=== PATIENT | female | born 1990 | race Caucasian/White ===

== ENCOUNTER 2019-04-30 09:20 | Outpatient (CLI) | payer OTHER, SELFPAY ==
[2019-04-30 09:34] LABS: Basophils Absolute Auto 0.02 K/mm3 (0.00-0.10); Basophils Percent Auto 0.3 % (0.0-1.0); Eosinophils Absolute Auto 0.05 K/mm3 (0.02-0.50); Eosinophils Percent Auto 0.8 % (1.0-6.0); Hematocrit 47.7 % (35.0-49.0); Hemoglobin 16.1 g/dL (12.0-15.0); Immature Granulocyte Absolute 0.01 K/mm3 (0.00-0.00); Immature Granulocyte Percent A 0.2 % (0.0-0.0); Lymphocytes Absolute Auto 2.09 K/mm3 (1.10-4.50); Lymphocytes Percent Auto 35.5 % (18.0-42.0); Mean Corpuscular HGB Conc 33.8 g/dL (32.0-36.0); Mean Corpuscular Hemoglobin 29.7 pg (27.0-31.0); Mean Platelet Volume 9.2 fl (9.2-11.8); Monocytes Absolute Auto 0.31 K/mm3 (0.10-0.90); Monocytes Percent Auto 5.3 % (2.0-11.0); Neutrophils Absolute Auto 3.4 K/mm3 (1.7-7.2); Neutrophils Percent Auto 57.9 % (50.0-70.0); Platelet Count Result 254 K/mm3 (150-420); Red Blood Count 5.42 M/mm3 (4.20-5.40); Red Cell Distribution Width 12.2 % (11.6-14.4); White Blood Count 5.9 K/mm3 (4.8-10.8)
[2019-04-30 11:17] LABS: Alanine Aminotransferase 36 U/L (14-59); Albumin Level 4.6 g/dL (3.4-5.0); Alkaline Phosphatase 58 U/L (46-116); Anion Gap 16.3 mmol/L (7-16); Aspartate Amino Transferase 21 U/L (15-37); Bilirubin,Total 0.7 mg/dL (0.00-1.00); Blood Urea Nitrogen 20 mg/dL (7-18); Calcium 9.8 mg/dL (8.5-10.1); Carbon Dioxide 25 mmol/L (21-32); Chloride 106 mmol/L (98-108); Estimated Glomerular Filt Rate 57; Folic Acid 8.7 ng/mL (8.6->20); Glucose 85 mg/dL (70-99); Osmolality Calculated 297 mOsm/kg (285-295); Potassium 4.3 mmol/L (3.5-5.1); Sodium 143 mmol/L (136-145); Thyroid Stimulating Hormone 2.18 uIU/mL (0.36-3.74); Total Protein 7.8 g/dL (6.4-8.2); Vitamin B12 530 pg/mL (193-986)
== END 2019-04-30 09:21 | disposition home or self-care (01) ==
LOC: CHSLAB 09:24
PROVIDERS: PCP Psychiatry & Neurology Neurology; Visit Provider Psychiatry & Neurology Neurology
DX: R20.2 Paresthesia of skin (principal)
CPT/HCPCS: 36415; 80053; 82607; 82746; 84443; 85025; 86038; 86334

== ENCOUNTER 2019-08-31 18:27 | Emergency (ER) | payer OTHER, SELFPAY ==
--- NOTE | ~2019-08-31 | CT_ITS ---
EXAMINATION: CT BRAIN W/O DATE: 08/31/2019 19:18 INDICATION: Head and neck pain. TECHNIQUE: Computed tomography (CT) of the head was performed without intravenous contrast. The dose- length product was 681.00 mGy-cm. The mA was adjusted according to patient size. Iterative reconstruc tion technique was employed. COMPARISON: 08/01/2018 FINDINGS: Normal brain parenchymal volume for age. Normal obregon-white differentiation. No acute intrac ranial hemorrhage, infarction, mass or mass effect. No ventriculomegaly or midline shift. Midline sagittal images demonstrate a normal corpus callosum, c raniovertebral junction and sella turcica. Basilar cisterns are patent. Stable position to right fron harpreet ventriculostomy catheter. Paranasal sinuses and mastoids are pneumatized. No depressed skull fractures. IMPRESSION: 1. No acute intracranial abnormality. Reviewed, dictated and finalized at location A.
--- NOTE | ~2019-08-31 | CT_ITS ---
EXAMINATION: CT cervical spine wo con DATE: 08/31/2019 19:18 INDICATION: Severe neck pain TECHNIQUE: Computed tomography (CT) of the cervical spine was performed without intravenous contrast. The dose-length product was 411 mGy-cm. Automated exposure control and iterative reconstruction technique were employed. COMPARISON: None FINDINGS: Normal cervical alignment. Vertebral body and disc heights are preserved. Craniovertebral j unction is normal. Ventriculostomy catheter noted. Odontoid process within normal limits. No evidence for perched facet. Lung apices are normal. Thyroid gland is normal. No cervical lymphadenopathy. IMPRESSION: 1. No acute abnormality of the cervical spine. Reviewed, dictated and finalized at location A.
[2019-08-31 18:45] VITALS: BP 141/98; PULSE 84; RESP 17; TEMP 37.3; O2SAT 96
--- NOTE | 2019-08-31 18:45 | ED.NECK ---
HPI - Neck Pain/Injury General Chief Complaint: Headache Stated Complaint: neck pain Time Seen by Provider: 08/31/19 18:45 Source: patient Mode of arrival: ambulatory Limitations: no limitations History of Present Illness HPI Narrative: 29-year-old woman with a history of idiopathic intracranial hypertension status post CARGO SERVICES COORDINATOR shunt comes in today complaining of severe occipital and upper neck pain. Patient states this started a week ago and has gradually gotten worse. She has been taking tramadol, an anti-inflammatory and a muscle relaxer to no avail. She has had a few episodes of vomiting. She denies history of injury, numbness, tingling, weakness, changes in her vision, fever, cough or cold symptoms or rash. Her CARGO SERVICES COORDINATOR shunt was placed by Arnoldo Robertson MD, neurosurgery at [facility]. She had a CT scan of her brain in March of this year which she states was normal. MD complaint: neck pain Radiation: occiput Severity: severe Quality: dull Duration: progressively worsening Relieving factors: none Exacerbating factors: movement of neck Context: unknown Associated symptoms: headache Treatments prior to arrival: prescription analgesic and other (diclofenac) Related Data Home Medications Medication Instructions Recorded Confirmed cyclobenzaprine 10 mg PO TID 08/31/19 08/31/19 diclofenac sodium 50 mg PO BID 08/31/19 08/31/19 tramadol 50 mg PO QID 08/31/19 08/31/19 Allergies Allergy/AdvReac Type Severity Reaction Status Date / Time shellfish derived Allergy Severe Unknown Verified 08/25/19 15:57 iodine Allergy Intermediate Unknown Verified 08/25/19 15:57 morphine Allergy Intermediate Unknown Verified 08/25/19 15:57 Review of Systems Constitutional: Constitutional: Denies chills, Denies fever(s) and Denies weakness Eyes: Eyes: Denies change in vision and Denies photophobia ENT: Denies dysphagia, Denies nasal congestion and Denies sore throat Cardiovascular: Cardiovascular: Denies chest pain and Denies radiating jaw, neck or arm pain Respiratory: Respiratory: Denies cough, Denies dyspnea and Denies wheezing Gastrointestinal: Gastrointestinal: Denies abdominal pain, Denies diarrhea and Reports vomiting Integumentary/Breasts: Skin/Breast: Denies pruritus, Denies erythema and Denies rash Neurologic: Denies vertigo, Denies dizziness and Denies syncope Hematologic/Lymphatic: Hematologic/Lymphatic: Denies easy bleeding and Denies easy bruising Allergic/Immunologic: Allergic/Immunologic: Denies lip swelling and Denies wheezing [facility] Past Medical History Medical History (Updated 08/31/19 @ 22:09 by Supa Worrell MD) AMARA (generalized anxiety disorder) IBS (irritable bowel syndrome) IIH (idiopathic intracranial hypertension) PTSD (post-traumatic stress disorder) Tobacco dependence Surgical History Surgical History Hx of hysterectomy (~11/28/10) S/P CARGO SERVICES COORDINATOR shunt Social History Social History Smoking packs per day: 0.5 Smoking cigarettes per day: 10.0 Smoking status: Current every day smoker Tobacco type: cigarettes Alcohol intake: never Substance use: never Substance use type: does not use Exam Const: General: healthy appearing and alert Orientation/consciousness: patient oriented x3 Limitations: no limitations Other: Mod acute distress HENMT: Ears: external ears normal, TM's normal bilaterally and EAC's normal Face and sinus: normal facial exam Mouth: Yes moist mucous membranes Throat: posterior oropharynx normal Eyes: Conjunctivae: conjunctivae normal Pupils: Equal, round and reactive pupils present EOM: EOMs intact bilaterally Neck: Neck: no lymphadenopathy Other: Tender to palpation at base of occuput. No abnormal contour or rash. Resp: Effort & Inspection: normal respiratory effort, not labored and no retractions Auscultation: clear to auscultation bilaterally, no rales, no
[2019-08-31] MEDS: ONDANSETRON INJ 4 MG/2 ML VIAL IV PUSH (19:13)
[2019-08-31] MEDS: HYDROmorphone HCL 2 MG/ML VIAL 0.5 MG IV PUSH ×3 (19:15→21:22)
--- NOTE | 2019-08-31 19:52 | PC.NURSE ---
DR TA FROM [facility] CALLED FOR CONSULT
[2019-08-31] MEDS: KETOROLAC 30 MG/ML VIAL (*BKC) IV PUSH (20:07)
[2019-08-31] MEDS: SODIUM CHLORIDE 0.9% IV 1,000 ML 999 ML IV CONT (20:08)
[2019-08-31 20:23] LABS: Basophils Absolute Auto 0.04 K/mm3 (0.00-0.10); Basophils Percent Auto 0.4 % (0.0-1.0); Eosinophils Absolute Auto 0.12 K/mm3 (0.02-0.50); Eosinophils Percent Auto 1.3 % (1.0-6.0); Hematocrit 46.4 % (35.0-49.0); Hemoglobin 15.7 g/dL (12.0-15.0); Immature Granulocyte Absolute 0.01 K/mm3 (0.00-0.00); Immature Granulocyte Percent A 0.1 % (0.0-0.0); Lymphocytes Absolute Auto 3.99 K/mm3 (1.10-4.50); Mean Corpuscular HGB Conc 33.8 g/dL (32.0-36.0); Mean Corpuscular Hemoglobin 29.5 pg (27.0-31.0); Mean Corpuscular Volume 87.2 fL (78.0-102.0); Mean Platelet Volume 9.4 fl (9.2-11.8); Monocytes Absolute Auto 0.45 K/mm3 (0.10-0.90); Neutrophils Absolute Auto 4.5 K/mm3 (1.7-7.2); Neutrophils Percent Auto 49.2 % (50.0-70.0); Platelet Count Result 273 K/mm3 (150-420); Red Blood Count 5.32 M/mm3 (4.20-5.40); Red Cell Distribution Width 11.8 % (11.6-14.4); White Blood Count 9.1 K/mm3 (4.8-10.8)
[2019-08-31 20:37] LABS: Partial Thromboplastin Time 27.8 SEC (22.3-31.6); Prothrombin Time 10.3 Seconds (9.64-11.0)
[2019-08-31 20:39] LABS: Alanine Aminotransferase 29 U/L (14-59); Alkaline Phosphatase 58 U/L (46-116); Anion Gap 14.9 mmol/L (7-16); Aspartate Amino Transferase 16 U/L (15-37); Bilirubin,Total 0.3 mg/dL (0.00-1.00); Blood Urea Nitrogen 18 mg/dL (7-18); CRP 0.6 mg/dL (0.0-0.9); Calcium 9.3 mg/dL (8.5-10.1); Carbon Dioxide 23 mmol/L (21-32); Chloride 105 mmol/L (98-108); Estimated Glomerular Filt Rate 53; Glucose 106 mg/dL (70-99); Osmolality Calculated 289 mOsm/kg (285-295); Potassium 3.9 mmol/L (3.5-5.1); Sodium 139 mmol/L (136-145); Total Protein 7.4 g/dL (6.4-8.2)
[2019-08-31 20:44] LABS: Lactic Acid Reflex 1.2 mmol/L (0.4-2.0)
--- NOTE | 2019-08-31 21:06 | PC.NURSE ---
DR CYR CALLED FOR POSSIBLE TRANSFER TO [facility]
--- NOTE | 2019-08-31 21:10 | PC.NURSE ---
NS INFUSED AT THIS TIME
[2019-08-31 22:14] VITALS: BP 148/94; PULSE 55; RESP 17; O2SAT 97
== END 2019-08-31 22:38 | disposition short-term general hospital (02) ==
PROVIDERS: Emergency Provider Emergency Medicine; PCP Nurse Practitioner Family
DX: M54.2 Cervicalgia (principal); R51 Headache
CPT/HCPCS: 36415; 70450; 72125; 80053; 83605; 85025; 85610; 85730; 86140; 87040; 96361; 96374; 96375; 96376; 99285; J1170; J1885; J2405; J7030

== ENCOUNTER 2019-08-31 23:19 | Inpatient (IN) | payer OTHER, SELFPAY ==
--- NOTE | 2019-08-31 23:23 | ADMGEN ---
This patient, Yovana Simental, was admitted to Medical Room 252-01. Patient/family oriented to hospital policies and general routines including ID bracelet, bed and alarms, visiting hours, pain management, procedures, bathroom and other care routines, personal items, smoking policy, room service/diet, and visiting hours. Valuables list has been completed. Information on how to activate the Rapid Response Team has been discussed. Patient/Family are encouraged to report perceived risks to care and to ask questions if they do not understand what they are told or what they should do.
[2019-08-31 23:33] VITALS: BP 146/95; PULSE 55; RESP 20; TEMP 36.4; O2SAT 98; BMI 25.8
[2019-09-01] MEDS: CYCLOBENZAPRINE HCL 10 MG TABLET PO ×4 (00:44→17:28)
[2019-09-01] MEDS: traMADol HCL 50 MG TABLET 100 MG PO (03:45)
[2019-09-01 06:00] VITALS: BP 135/84; PULSE 62; RESP 20; TEMP 36.3; O2SAT 100
[2019-09-01 09:41] LABS: Prothrombin Time 13.1 Seconds (11.1-14.7)
[2019-09-01 09:42] LABS: Partial Thromboplastin Time 28.1 SECONDS (22.3-36.8)
--- NOTE | 2019-09-01 09:59 | PM.IMHP ---
H&P: HPI History of Present Illness Chief complaint: Intractable headache Narrative: Yovana Simental is a 29 year old female with a history of pseudotumor cerebri, idiopathic intracranial hypertension, s/p shunt placement at [facility] [address] Arnoldo Robertson Neurosurgeon, who presented as a transfer to our facility from [facility] for gradually worsening neck pain. She developed left occipital neck pain about 1.5 weeks ago and saw her nurse practitioner 1 week ago and was prescribed Flexeril and Tramadol without any improvement. The pain began getting worse steming from the base of her skull, radiating to the back of her head and pain behind her left eye. She has worsening neck pain with any movement, range of motion of her neck, with palpation. She also noticed weakness to her left arm as well as sharp shooting neck pain with range of motion of her left arm. She reports no improvement with dilaudid, valium or any medications she has had for pain. She denies any similar symptoms in the past. The pressure behind her left eye is similar to her pseudotumor cerebri pain. Patient states this is not like her normal migraine. She does have associated nausea and intermittent vomiting secondary to her severe pain. She denies any fevers, chills, blurred vision, double vision, photophobia, abdominal pain, lightheadedness, dizziness, syncope, chest pain, shortness of breath, cough, rhinorrhea, congestion, diarrhea, constipation, abdominal pain, rashes, sick contacts. The patient said she has been staying at home with her kids unknown has been sick. She has not been camping recently. She has not been doing any strenuous activity or denies any trauma. Her initial labs at [facility] showed temperature of 99.2?, blood pressure 141/98, heart rate 84, respiratory rate 17, oxygen saturation 96% on room air. Initial labs at [place] showed normal CBC with differential, normal coag panel, normal CMP other than creatinine of 1.1, glucose 106. CT head showed no acute intracranial abnormality. No ventriculomegaly or midline shift. Stable position to right frontal ventriculostomy catheter. Cervical spine CT showed no acute abnormality. Blood cultures were taken. The patient was transferred to [facility] for a neurologist consult and for a MRI and lumbar puncture. Code status: Full code [id number]: Patient's significant other, Abraham Woods Primary care provider: Nurse Practitioner Marita ghosh [place] Review of Systems Review of Systems: All systems reviewed & are unremarkable except as noted in HPI and below PMFSH Past Medical History Medical History AMARA (generalized anxiety disorder) IBS (irritable bowel syndrome) IIH (idiopathic intracranial hypertension) Pseudotumor cerebri PTSD (post-traumatic stress disorder) Tobacco dependence Surgical History Surgical History Hx of hysterectomy (~11/28/10) S/P laparoscopic surgery For endometriosis multiple times S/P EARLY EDUCATION TEACHER shunt 2017 [facility] [address]. 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
[2019-09-01 14:00] VITALS: BP 118/80; PULSE 51; RESP 12; TEMP 36.1; O2SAT 99
--- NOTE | 2019-09-01 14:58 | CONS_ITS ---
DATE OF CONSULTATION: 08/31/2019 HISTORY OF PRESENT ILLNESS: A 29-year-old right-handed female has been admitted to [facility] through the emergency room for the complaint of intractable headache. In addition to the ongoing history of: 1. Generalized anxiety disorder. 2. Irritable bowel syndrome. 3. Idiopathic intracranial hypertension. 4. Posttraumatic stress disorder. 5. Tobacco dependence. In addition to the history of a smoking 1 pack per day with the 15-year smoking history, currently everyday smoker. No alcohol drinking. MEDICATION: At the time of admission to the hospital she was takin. Cyclobenzaprine 10 mg 3 times a day. 2. Tramadol 50 mg q.i.d. p.r.n. ALLERGIES: SHE IS REPORTEDLY ALLERGIC TO SHELLFISH, IODINE, AND MORPHINE. PHYSICAL EXAMINATION: VITAL SIGNS: Evaluation up until now documented her to be afebrile with temperature of 97.5, pulse 55, respirations 20, blood pressure 146/95 with pulse ox 98%. HEENT: Head normocephalic. No cranial bruit. Ear, nose, throat examination normal. NECK: Supple, but complains of left-sided neck discomfort. HEART: Regular with no murmur. LUNGS: Clear. ABDOMEN: Soft. NEUROLOGICAL: She is awake, alert, in no obvious pain. Pupils round, regular. Vicente of vision full. Extraocular movements full. Face symmetrical. Tongue midline. Motor examination revealed her to have fairly nonfocal motor exam with strength normal. Reflexes sluggish, but symmetrical and plantars downgoing. Up until now, she has had the cervical spine CT scan, which revealed no abnormalities and CT scan of the head, no ventriculomegaly or midline shift. Normal corpus callosum. CV junction is normal. Basal cisterns are patent and position to the right frontal ventriculostomy catheter is stable. She is afebrile. Considering that she will need spinal tap with a continual neck pain, I prefer that she goes back to the [facility] where the shunt has been placed in, in case if they have to do anything for seizure further. In the meantime, supportive treatment can continue as such. NILDA GOYAL M.D. CRUSHER PLANT OPERATOR CRUSHER PLANT OPERATOR D I MT: Ruby
--- NOTE | 2019-09-01 15:32 | PCCCNOTE ---
On 09/01/19, the student, [Eloina Mendez], provided care and completed [facility] on this patient. I have reviewed the student's documentation and agree with the findings.
--- NOTE | 2019-09-01 16:24 | PM.TDS ---
Transfer Discharge Sum: Prov Provider Date of admission: 08/31/19 23:19 Primary care physician: Marita Pappas NP Admitting clinician: Tina Leigh DO Consults: 09/01/19 Consult to Physician Routine Comment: NOTIFIED BY LOAN CURRAN Consulting Provider: Sam De Jesus incident response lead/MD group to consult: Dr. De Jesus-was notified by outside facility Reason for consultation: Intractable headache, TITLE CURATIVE SPECIALIST shunt Has provider been notified: Yes DS: Admitting Diagnosis Admitting Diagnosis Admitting Diagnosis: Cervicalgia DS: Discharge Diagnosis Discharge Diagnosis (1) Neck pain: Code(s): M54.2 - Cervicalgia Status: Acute Assessment and Plan: (2) Uncontrolled pain: Code(s): R52 - Pain, unspecified Status: Acute Assessment and Plan: (3) Pseudotumor cerebri: Code(s): G93.2 - Benign intracranial hypertension Status: Acute Assessment and Plan: Transfer Discharge Sum: Med Medications Active and Home Medications: Home Medications cyclobenzaprine 10 mg PO TID 08/31/19 [History Confirmed 08/31/19] tramadol 50 mg PO QID PRN 08/31/19 [History Confirmed 08/31/19] Active Medications Acetaminophen (Tylenol Tablet) 650 mg PO Q4H PRN PRN Reason: Mild Pain (1-3) or Fever Cyclobenzaprine HCl (Flexeril) 10 mg PO TID PADMAJA Last Admin: 09/01/19 13:55 Dose: 10 mg Documented by: Diazepam (Valium Inj) 5 mg IV PUSH Q6HR PRN PRN Reason: MUSCLE SPASM Stop: 09/06/19 02:19 Hydromorphone HCl (Dilaudid Inj) 1 mg IV PUSH Q3H PRN PRN Reason: Pain Rated 7-10 Last Admin: 09/01/19 13:52 Dose: 1 mg Documented by: Ondansetron HCl (Zofran Inj) 4 mg IV PUSH Q6H PRN PRN Reason: Nausea And Vomiting Tramadol HCl (Ultram) 100 mg PO Q4H PRN PRN Reason: PAIN 4-6 Stop: 09/06/19 02:17 Transfer Discharge Sum: Hosp Hospital Course Hospital course: Yovana Simental is a 29 year old female with a history of pseudotumor cerebri, idiopathic intracranial hypertension, s/p shunt placement at [facility] [address] Arnoldo Robertson Neurosurgeon, who presented as a transfer to our facility from [facility] for gradually worsening neck pain. Her initial labs at [facility] showed temperature of 99.2?, blood pressure 141/98, heart rate 84, respiratory rate 17, oxygen saturation 96% on room air. Initial labs at [place] showed normal CBC with differential, normal coag panel, normal CMP other than creatinine of 1.1, glucose 106. CT head showed no acute intracranial abnormality. No ventriculomegaly or midline shift. Stable position to right frontal ventriculostomy catheter. Cervical spine CT showed no acute abnormality. Blood cultures were taken. The patient was transferred to [facility] for a neurologist consult and for a MRI and lumbar puncture. Discussed patient's case with our neurologist Dr. Joe who evaluated the patient at bedside and feels that due to her significant history, severe uncontrolled neck pain and symptoms that she would be best suited to be transferred to [facility]. I called [facility] and talked to Dr. Schofield neurosurgeon who accepts the patient in transfer to their facility for further workup and evaluation to ensure that her shunt does not have any problems associated with her symptoms. Time Spent with Patient Time attestation: Total time spent providing and/or coordinating transfer services: Total time spent: Greater than 30 minutes Exam Narrative: Exam Narrative: General: 29-year-old woman laying flat in bed with her head elevated at 40?. Appears comfortable, but she is not moving her neck secondary to pain. In no acute distress. Skin: No rashes noted. No jaundice or cyanosis. Good skin turgor. Neck: Decreased range of motion of neck secondary to pain. Tenderness to palpation of left p
[2019-09-01 18:41] VITALS: BP 134/96; PULSE 62; RESP 20; TEMP 36.3; O2SAT 100
[2019-09-01 22:00] VITALS: BP 142/97; PULSE 60; RESP 18; TEMP 36.6; O2SAT 100
[2019-09-02] MEDS: ONDANSETRON INJ 4 MG/2 ML VIAL IV PUSH ×3 (05:26→20:00)
[2019-09-02 06:00] VITALS: BP 125/82; PULSE 62; RESP 18; TEMP 36.6; O2SAT 98
[2019-09-02 06:04] LABS: Basophils Absolute Auto 0.1 K/mm3 (0.0-0.1); Basophils Percent Auto 0.7 % (0.2-1.2); Eosinophils Absolute Auto 0.1 K/mm3 (0-0.3); Eosinophils Percent Auto 1.2 % (0-4.4); Hematocrit 46.9 % (37.0-47.0); Hemoglobin 15.7 g/dL (12.0-15.0); Immature Granulocyte Absolute 0.01 K/mm3 (0.00-0.031); Immature Granulocyte Percent A 0.1 % (0-0.5); Lymphocytes Absolute Auto 3.36 K/mm3 (0.9-3.2); Lymphocytes Percent Auto 46.2 % (18.3-44.2); Mean Corpuscular HGB Conc 33.5 g/dl (32-36); Mean Corpuscular Hemoglobin 29.5 pg (26-34); Mean Platelet Volume 9.3 fl (7.4-10.4); Monocytes Absolute Auto 0.5 K/mm3 (0.1-0.6); Monocytes Percent Auto 6.5 % (2.6-8.5); Neutrophils Absolute Auto 3.3 K/mm3 (1.3-6.7); Neutrophils Percent Auto 45.3 % (45.5-73.1); Platelet Count Result 254 k/mm3 (150-375); Red Blood Count 5.33 M/mm3 (4.2-5.4); Red Cell Distribution Width 11.7 % (11.5-14.5); White Blood Count 7.3 K/mm3 (4.5-10.0)
[2019-09-02 06:15] LABS: Blood Urea Nitrogen 17 mg/dL (7-17); Calcium 9.6 mg/dL (8.4-10.2); Carbon Dioxide 26 mmol/L (22-30); Chloride 104 mmol/L (98-107); Estimated CRCL calculation 78 ml/min; Estimated Glomerular Filt Rate > 60; Glucose 95 mg/dL (65-105); Sodium 138 mmol/L (137-145)
[2019-09-02] MEDS: CYCLOBENZAPRINE HCL 10 MG TABLET PO ×3 (08:58→16:37)
[2019-09-02 14:00] VITALS: BP 132/87; PULSE 50; RESP 12; TEMP 36.5; O2SAT 100
--- NOTE | 2019-09-02 14:21 | PM.IMPN ---
Progress Note: A&P Assessment and Plan (1) Neck pain: Code(s): M54.2 - Cervicalgia Status: Acute Assessment and Plan: The patient has severe neck pain and reports some relief with current medication regimen, but often has pain return a 2-3 hours after. She has severe neck pain with any movement with reported symptoms of left arm weakness and neck pain with movement of her legs. Dr. Joe has been consulted and recommended transfer to [facility]; patient accepted by Dr. Schofield (neurosurgery) for further work up and management. Will add morphin PRN for breakthrough pain Will continue monitoring the patient's pain and symptoms until she can be transferred to [facility] for further workup. (2) Uncontrolled pain: Code(s): R52 - Pain, unspecified Status: Acute Assessment and Plan: See above a/p Will continue with PRN dilaudid and add PRN morphine for breakthrough pain Monitor closley (3) Pseudotumor cerebri: Code(s): G93.2 - Benign intracranial hypertension Status: Acute Assessment and Plan: Shunt placed at [facility] in [address] Robertson. See above a/p. Awaiting transfer to [facility] Subjective Date/time seen: 09/02/19 14:21 Interval history: Patient is a 29 yo F with history of IIH, pseudotumor cerebri, and IBS who is here for evaluation from Neurology for gradually worsening neck pain and associated eye pain; patient is currently awaiting bed for transfer to [facility]. Patient states her pain is about the same since admitted to [place]. She states her pain medication, benzodiazepine, and flexeril lessen her pain to about a 6/10, but only lasts a few hours and has severe pain again. She notes some left arm paresthesias/weakness, but is stable from yesterday. Slightly nauseas without vomiting; zofran alleviates this symptom. No other complaints at the moment. Denies subjective f/c/s, myalgias/arthralgias, changes in v/h, cp/palpitations, sob/cough, v/d/c, abd pain, changes in BMs, dysuria, hematuria, cloudy urine, calf pain/swelling. Review of Systems Review of Systems: All systems reviewed & are unremarkable except as noted in HPI and below Exam Narrative: Exam Narrative: Patient lying supine in bed at time of visit. Ice pack placed to back of neck Const: General: cooperative, no acute distress, well developed, alert, awake and uncomfortable Orientation/consciousness: patient oriented x3 HENMT: Head: normocephalic and atraumatic General nose exam: Normal nares present Face and sinus: face symmetric Mouth: Yes moist mucous membranes Throat: posterior oropharynx normal Eyes: General: appearance normal, both eyes and all related structures EOM: EOMs intact bilaterally Neck: Neck: limited ROM ( limited ROM 2/2 pain) and trachea midline Thyroid: thyroid normal Resp: Effort & Inspection: normal respiratory effort Auscultation: clear to auscultation bilaterally Cardio: Rate: regular rate Rhythm: regular rhythm Heart sounds: no murmurs GI: Inspection: no obesity GI Palp: No abdominal tenderness and Yes Soft to palpation Auscultation: normal bowel sounds Skin: General skin exam: no rashes or lesions noted Neuro: General: patient oriented x3, moves all extremities and no focal motor deficits Speech: normal speech Extrem: Right lower extremity: no edema Left lower extremity: no edema Other: NTTP b/l calves Psych: Mental Status: mental status grossly normal Affect: normal affect Objective Data Vital Signs Vital Signs: Last Vital Signs Temp 97.8 F 09/02/19 06:00 Pulse 62 09/02/19 06:00 Resp 18 09/02/19 06:00 BP 125/82 09/02/19 06:00 Pulse Ox 98 09/02/19 06:00 Intake/Output Intake/Output: Intake & Output 08/30/19 08/31/19 09/01/19 09/02/19 23:59 23:59 23:59 23:59 Intake Total 320 220 Output Total 600 400
[2019-09-02] MEDS: MORPHINE SULFATE 2 MG/ML INJ IV PUSH ×2 (15:21→21:53)
[2019-09-02 22:00] VITALS: BP 133/87; PULSE 62; RESP 18; TEMP 36.3; O2SAT 97
[2019-09-03] MEDS: MORPHINE SULFATE 2 MG/ML INJ IV PUSH ×4 (01:09→15:05)
[2019-09-03 05:49] LABS: Basophils Percent Auto 0.3 % (0.2-1.2); Eosinophils Absolute Auto 0.1 K/mm3 (0-0.3); Eosinophils Percent Auto 1.3 % (0-4.4); Hemoglobin 15.6 g/dL (12.0-15.0); Immature Granulocyte Absolute 0.02 K/mm3 (0.00-0.031); Immature Granulocyte Percent A 0.3 % (0-0.5); Lymphocytes Absolute Auto 2.79 K/mm3 (0.9-3.2); Lymphocytes Percent Auto 45.7 % (18.3-44.2); Mean Corpuscular HGB Conc 33.2 g/dl (32-36); Mean Corpuscular Hemoglobin 29.2 pg (26-34); Mean Corpuscular Volume 87.9 fl (80-100); Mean Platelet Volume 9.3 fl (7.4-10.4); Monocytes Absolute Auto 0.5 K/mm3 (0.1-0.6); Monocytes Percent Auto 7.4 % (2.6-8.5); Neutrophils Absolute Auto 2.7 K/mm3 (1.3-6.7); Platelet Count Result 221 k/mm3 (150-375); Red Blood Count 5.35 M/mm3 (4.2-5.4); Red Cell Distribution Width 11.6 % (11.5-14.5); White Blood Count 6.1 K/mm3 (4.5-10.0)
[2019-09-03 06:00] VITALS: BP 121/71; PULSE 65; RESP 18; TEMP 36; O2SAT 93
[2019-09-03 06:04] LABS: Blood Urea Nitrogen 17 mg/dL (7-17); Calcium 9.1 mg/dL (8.4-10.2); Carbon Dioxide 27 mmol/L (22-30); Chloride 103 mmol/L (98-107); Estimated CRCL calculation 71 ml/min; Estimated Glomerular Filt Rate 58; Glucose 99 mg/dL (65-105); Potassium 3.9 mmol/L (3.4-5.0); Sodium 137 mmol/L (137-145)
[2019-09-03] MEDS: CYCLOBENZAPRINE HCL 10 MG TABLET PO ×3 (08:49→17:38)
--- NOTE | 2019-09-03 11:32 | WPDNEURCNPN ---
Assessment and Plan Assessment and plan (1) Pseudotumor cerebri: Code(s): G93.2 - Benign intracranial hypertension Status: Acute (2) Uncontrolled pain: Code(s): R52 - Pain, unspecified Status: Acute (3) Neck pain: Code(s): M54.2 - Cervicalgia Status: Acute (4) IIH (idiopathic intracranial hypertension): Code(s): G93.2 - Benign intracranial hypertension Status: Acute (5) AMARA (generalized anxiety disorder): Code(s): F41.1 - Generalized anxiety disorder Status: Acute (6) Tobacco dependence: Code(s): F17.200 - Nicotine dependence, unspecified, uncomplicated Status: Acute (7) PTSD (post-traumatic stress disorder): Code(s): F43.10 - Post-traumatic stress disorder, unspecified Status: Acute (8) IBS (irritable bowel syndrome): Code(s): K58.9 - Irritable bowel syndrome without diarrhea Status: Acute Consult date: 09/04/19 Time Seen: 09:00 HPI: Yovana Simental is a 29 year old female Review of Systems Review of Systems: All systems reviewed & are unremarkable except as noted in HPI and below PMFSH Past Medical History Medical History AMARA (generalized anxiety disorder) IBS (irritable bowel syndrome) IIH (idiopathic intracranial hypertension) Pseudotumor cerebri PTSD (post-traumatic stress disorder) Tobacco dependence Surgical History Surgical History Hx of hysterectomy (~11/28/10) S/P laparoscopic surgery For endometriosis multiple times 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 Gender identity (if verbalized by the patient): Female Spiritual care concerns: No Meds Home Medications and Allergies Home Medications Medication Instructions Recorded Confirmed Type cyclobenzaprine 10 mg PO TID 08/31/19 08/31/19 History tramadol 50 mg PO QID PRN 08/31/19 08/31/19 History Allergies Allergy/AdvReac Type Severity Reaction Status Date / Time shellfish derived Allergy Severe Unknown Verified 08/25/19 15:57 iodine Allergy Intermediate Unknown Verified 08/25/19 15:57 Vital Signs Vital Signs - 24 hr 09/02/19 14:00 09/02/19 22:00 09/03/19 06:00 Temperature 36.5 C 36.3 C L 36.0 C L Pulse Rate 50 L 62 65 Respiratory Rate 12 18 18 Blood Pressure 132/87 133/87 121/71 Pulse Oximetry 100 97 93 Exam Const: General: well developed, alert, awake, acute distress and anxious Nutritional Appearance: average body habitus Orientation/consciousness: patient oriented x3 Limitations: no limitations HENMT: Head: normal to inspection Eyes: General: appearance normal, both eyes and all related structures Neck: Neck: no lymphadenopathy, torticollis and other (spasm) Resp: Effort & Inspection: normal respiratory effort Auscultation: clear to auscultation bilaterally Cardio: Rate: regular rate Rhythm: regular rhythm GI: Auscultation: normal bowel sounds Skin: General skin exam: no rashes or lesions noted Extrem: General: normal to inspection Psych: Speech and movement: Normal speech and movement present Affect: Labile affect present, Sad affect present and Anxious affect present Attitude: cooperative Thought process: Circum
--- NOTE | 2019-09-03 11:33 | WPDNEUROPN ---
Progress Note: A&P Additional Plan readjust pain meds Review of Systems Review of Systems: All systems reviewed & are unremarkable except as noted in HPI and below Exam Const: General: cooperative, alert, awake, in distress, anxious and uncomfortable Nutritional Appearance: average body habitus Orientation/consciousness: patient oriented x3 Limitations: other limitations Other: pain Eyes: General: appearance normal, both eyes and all related structures Visual Lindsey: normal visual lindsey by confrontation Alignment and Position: alignment normal Periorbital: periorbital findings normal Eyelids: eyelids normal Conjunctivae: conjunctivae normal Sclera: sclerae normal Cornea: corneas normal Pupils: Equal, round and reactive pupils present EOM: EOMs intact bilaterally Neck: Neck: no lymphadenopathy, no meningeal signs and other (c/o pain on right side) Thyroid: thyroid normal Carotids: normal carotid upstroke Resp: Auscultation: clear to auscultation bilaterally Cardio: Rate: regular rate Rhythm: regular rhythm Neuro: General: patient oriented x3, moves all extremities, no meningeal signs and no focal motor deficits Cranial nerves: Yes CN's II-XII intact bilaterally, Yes Nystagmus not present, Yes Normal facial strength present, Yes Midline tongue present, Yes Symmetric palate elevation present (c/o pain onright side), Yes Normal hearing present and Yes Altered sense of smell present Cognition (Neuro): normal cognition Speech: normal speech Motor exam (neuro): Pronator motor function not present and No tremor noted Deep tendon reflexes (DTR's): Right triceps reflex intensity grade: 1+, Left triceps reflex intensity grade: 1+, Rt Biceps (C5, C6): 1+, Left biceps reflex intensity grade: 1+, Right brachioradialis reflex intensity grade: 1+, Left brachioradialis reflex intensity grade: 1+, Right patellar reflex intensity grade: 1+, Left patellar reflex intensity grade: 1+ and Right ankle reflex intensity grade: 1+ Psych: Speech and movement: Clear speech present Affect: Sad affect present and Indifferent affect present Attitude: cooperative Thought process: Normal thought process present Thought content: Yes Normal thought content present Insight: Fair insight present (Psych) Judgement: Fair judgement present (Psych) Objective Data Vital Signs Vital Signs: Vital Signs - 24 hr 09/02/19 14:00 09/02/19 22:00 09/03/19 06:00 Temperature 36.5 C 36.3 C L 36.0 C L Pulse Rate 50 L 62 65 Respiratory Rate 12 18 18 Blood Pressure 132/87 133/87 121/71 Pulse Oximetry 100 97 93 Intake/Output Intake/Output: Intake & Output 08/31/19 09/01/19 09/02/19 09/03/19 23:59 23:59 23:59 23:59 Intake Total 633 008 4028 Output Total 156 964 7620 Balance -280 560 -313 Meds/Results Medications: Active Medications Generic Name Dose Route Start Last Admin Trade Name Freq PRN Reason Stop Dose Admin Acetaminophen 650 mg 09/01/19 00:04 Tylenol Tablet PO Q4H PRN Mild Pain (1-3) or Fever Cyclobenzaprine HCl 10 mg 09/01/19 09:00 09/03/19 08:49 Flexeril PO 10 mg TID PADMAJA Administration Diazepam 5 mg 09/03/19 09:22 Valium Inj IM 09/06/19 02:19 Q6HR PRN MUSCLE SPASM Hydromorphone HCl 1 mg 09/01/19 13:45 09/03/19 08:49 Dilaudid Inj IV PUSH 1 mg Q3H PRN Administration Pain Rated 7-10 Hydromorphone HCl 0.5 mg 09/02/19 14:10 Dilaudid Inj IV PUSH Q3H PRN Pain Rated 4-6 Morphine Sulfate 2 mg 09/02/19 14:20 09/03/19 10:51 Morphine Sulfate Inj IV PUSH 2 mg Q4H PRN Administration Breakthrough Pain Ondansetron HCl 4 mg 09/01/19 00:04 09/02/19 20:00 Zofran Inj IV PUSH 4 mg Q6H PRN Administration Nausea And Vomiting Labs Labs: Laboratory Results - last 24 hr 09/03/19 09/03/19 05:20 05:20 WBC 6.1 RBC 5.35 Hgb 15.6 H Hct 47.0 MCV 87.9 MCH 29.2 MCHC 33.2 RDW 11.6 Plt Count 221 MPV 9.3 Immature Gr
[2019-09-03] MEDS: ONDANSETRON INJ 4 MG/2 ML VIAL IV PUSH (12:44)
--- NOTE | 2019-09-03 13:18 | PM.IMPN ---
Progress Note: A&P Assessment and Plan (1) Neck pain: Code(s): M54.2 - Cervicalgia Status: Acute Assessment and Plan: The patient has severe neck pain and reports some relief with current medication regimen, but often has pain return a 2-3 hours after. She has severe neck pain with any movement with reported symptoms of left arm weakness and neck pain with movement of her legs. Dr. Joe has been consulted and recommended transfer to [facility]; patient accepted by Dr. Schofield (neurosurgery) for further work up and management. Will continue morphine PRN for breakthrough pain Will continue monitoring the patient's pain and symptoms until she can be transferred to [facility] for further workup. (2) Uncontrolled pain: Code(s): R52 - Pain, unspecified Status: Acute Assessment and Plan: See above a/p Will continue with PRN dilaudid and PRN morphine for breakthrough pain Monitor closely (3) Pseudotumor cerebri: Code(s): G93.2 - Benign intracranial hypertension Status: Acute Assessment and Plan: Shunt placed at [facility] in [address] Robertson. See above a/p. Awaiting transfer to [facility] Subjective Date/time seen: 09/03/19 13:18 Interval history: Patient is a 29 yo F with history of IIH, pseudotumor cerebri, and IBS who is here for evaluation from Neurology for gradually worsening neck pain and associated eye pain; patient is currently awaiting bed for transfer to [facility]. Patient states her pain is about the same since admitted to [facility]. It occasionally gets worse, but improves with her pain regimen. She is unsure if the morphine helps with breakthrough pain. She has nausea without vomiting; zofran alleviates this symptom. She is tolerating some food, but not much. No other complaints at the moment. Denies subjective f/c/s, myalgias/arthralgias, changes in v/h, cp/palpitations, sob/cough, v/d/c, abd pain, changes in BMs, dysuria, hematuria, cloudy urine, calf pain/swelling. Review of Systems Review of Systems: All systems reviewed & are unremarkable except as noted in HPI and below Exam Narrative: Exam Narrative: Patient lying supine in bed at time of visit. Ice pack placed to back of neck Const: General: cooperative, no acute distress, well developed, alert, awake and uncomfortable Orientation/consciousness: patient oriented x3 HENMT: Head: normocephalic and atraumatic General nose exam: Normal nares present Face and sinus: face symmetric Mouth: Yes moist mucous membranes Throat: posterior oropharynx normal Eyes: General: appearance normal, both eyes and all related structures EOM: EOMs intact bilaterally Neck: Neck: limited ROM ( limited ROM 2/2 pain) and trachea midline Resp: Effort & Inspection: normal respiratory effort Auscultation: clear to auscultation bilaterally Cardio: Rate: regular rate Rhythm: regular rhythm Heart sounds: no murmurs GI: Inspection: non-distended and no obesity GI Palp: No abdominal tenderness and Yes Soft to palpation Auscultation: normal bowel sounds Skin: General skin exam: normal color and no rashes or lesions noted Neuro: General: patient oriented x3 and moves all extremities Speech: normal speech Motor exam (neuro): strength not 5/5 throughout (decreased left UE strength 2/2 pain) Extrem: Right lower extremity: no edema Left lower extremity: no edema Other: NTTP b/l calves Psych: Mental Status: mental status grossly normal Affect: normal affect Objective Data Vital Signs Vital Signs: Last Vital Signs Temp 96.8 F L 09/03/19 06:00 Pulse 65 09/03/19 06:00 Resp 18 09/03/19 06:00 BP 121/71 09/03/19 06:00 Pulse Ox 93 09/03/19 06:00 Intake/Output Intake/Output: Intake & Output 08/31/19 09/01/19 09/02/19 09/03/19 23:59 23:59 23:59 23:59 Intake Total 940 502 4652 Ou
[2019-09-03 14:00] VITALS: BP 125/83; PULSE 54; RESP 17; TEMP 36.8; O2SAT 100
[2019-09-03 21:56] VITALS: BP 117/77; PULSE 63; RESP 16; TEMP 36.1; O2SAT 97
[2019-09-04 04:00] VITALS: BP 130/83; PULSE 65; RESP 16; TEMP 35.9; O2SAT 100
--- NOTE | 2019-09-04 04:00 | PC.NURSE ---
REPORT CALLED TO BLAINE CLIFFORD RN FOR ROOM 515, [address]
--- NOTE | 2019-09-04 04:54 | PC.NURSE ---
BLAINE ARAGON FROM [facility] NOTIFIED OF PT LEAVING PER AMBULANCE AND THAT DILAUDID 1MG GIVEN IVP AT 0408.
--- NOTE | 2019-09-04 06:57 | P.TS_ITS ---
Transfer Discharge Sum: Prov Provider Date of admission: 09/03/19 15:33 Date of Transfer: 09/04/19 at roughly 0500 Accepting Physician/Facility: Dr. Schofield (Neurosurgery)/[facility] Primary care physician: Marita Pappas NP Admitting clinician: Tina Leigh DO Consults: 09/01/19 Consult to Physician Routine Comment: NOTIFIED BY [facility] Consulting Provider: Sam De Jesus self pay representative/MD group to consult: Dr. De Jesus-was notified by outside facility Reason for consultation: Intractable headache, HEALTH PLAN SPECIALIST shunt Has provider been notified: Yes DS: Admitting Diagnosis Admitting Diagnosis Admitting Diagnosis: Cervicalgia, IIH, uncontrolled pain DS: Discharge Diagnosis Discharge Diagnosis (1) Neck pain: Code(s): M54.2 - Cervicalgia Status: Acute Assessment and Plan: The patient has severe neck pain and reports some relief with current medication regimen, but often has pain return a 2-3 hours after. She has severe neck pain with any movement with reported symptoms of left arm weakness and neck pain with movement of her legs. Dr. Joe has been consulted and recommended transfer to [facility]; patient accepted by Dr. Schofield (neurosurgery) for further work up and management. * Will continue morphine PRN for breakthrough pain * Will continue monitoring the patient's pain and symptoms until she can be transferred to [facility] for further workup. (2) Uncontrolled pain: Code(s): R52 - Pain, unspecified Status: Acute Assessment and Plan: See above a/p * Will continue with PRN dilaudid and PRN morphine for breakthrough pain * Monitor closely (3) Pseudotumor cerebri: Code(s): G93.2 - Benign intracranial hypertension Status: Acute Assessment and Plan: Shunt placed at [facility] in [address] Robertson. See above a/p. Awaiting transfer to [facility] Transfer Discharge Sum: Med Medications Active and Home Medications: Home Medications cyclobenzaprine 10 mg PO TID 08/31/19 [History Confirmed 08/31/19] tramadol 50 mg PO QID PRN 08/31/19 [History Confirmed 08/31/19] Transfer Discharge Sum: Hosp Hospital Course Hospital course: Yovana Simental is a 29 year old female with history of IIH s/p HEALTH PLAN SPECIALIST shunt placement at [facility] [address] Arnoldo Robertson Neurosurgeon, AMARA, IBS, PTSD who presented to [facility] ED on 08/30 with complaints of headache and neck pain uncontrolled with tramadol, anti- inflammatories, and muscle relaxer. Her initial labs at [facility] showed temperature of 99.2?, blood pressure 141/98, heart rate 84, respiratory rate 17, oxygen saturation 96% on room air. Initial labs at [place] showed normal CBC with differential, normal coag panel, normal CMP other than creatinine of 1.1, glucose 106. CT head showed no acute intracranial abnormality. No ventriculomegaly or midline shift. Stable position to right frontal ventriculostomy catheter. Cervical spine CT showed no acute abnormality. Blood cultures were taken. The patient was transferred to [facility] for a neurologist consult and for a MRI and lumbar puncture; Dr. De Jesus (Neurology) accepted patient for transfer to [place]. After transfer, patient's case was discussed with Dr. Joe (Neurology) who evaluated the patient at bedside and felt that due to her significant history, severe uncontrolled neck pain and symptoms that she would be best suited to be transferred to [facility]
--- NOTE | 2019-09-04 06:57 | PM.TDS ---
Transfer Discharge Sum: Prov Provider Date of admission: 09/03/19 15:33 Date of Transfer: 09/04/19 at roughly 0500 Accepting Physician/Facility: Dr. Schofield (Neurosurgery)/[facility] Primary care physician: Marita Pappas NP Admitting clinician: Tina Leigh DO Consults: 09/01/19 Consult to Physician Routine Comment: NOTIFIED BY [facility] Consulting Provider: Sam De Jesus braiding machine operator/MD group to consult: Dr. De Jesus-was notified by outside facility Reason for consultation: Intractable headache, MEDIA RELATIONS DIRECTOR shunt Has provider been notified: Yes DS: Admitting Diagnosis Admitting Diagnosis Admitting Diagnosis: Cervicalgia, IIH, uncontrolled pain DS: Discharge Diagnosis Discharge Diagnosis (1) Neck pain: Code(s): M54.2 - Cervicalgia Status: Acute Assessment and Plan: The patient has severe neck pain and reports some relief with current medication regimen, but often has pain return a 2-3 hours after. She has severe neck pain with any movement with reported symptoms of left arm weakness and neck pain with movement of her legs. Dr. Joe has been consulted and recommended transfer to [facility]; patient accepted by Dr. Schofield (neurosurgery) for further work up and management. Will continue morphine PRN for breakthrough pain Will continue monitoring the patient's pain and symptoms until she can be transferred to [facility] for further workup. (2) Uncontrolled pain: Code(s): R52 - Pain, unspecified Status: Acute Assessment and Plan: See above a/p Will continue with PRN dilaudid and PRN morphine for breakthrough pain Monitor closely (3) Pseudotumor cerebri: Code(s): G93.2 - Benign intracranial hypertension Status: Acute Assessment and Plan: Shunt placed at [facility] in [address] Robertson. See above a/p. Awaiting transfer to [facility] Transfer Discharge Sum: Med Medications Active and Home Medications: Home Medications cyclobenzaprine 10 mg PO TID 08/31/19 [History Confirmed 08/31/19] tramadol 50 mg PO QID PRN 08/31/19 [History Confirmed 08/31/19] Transfer Discharge Sum: Hosp Hospital Course Hospital course: Yovana Simental is a 29 year old female with history of IIH s/p MEDIA RELATIONS DIRECTOR shunt placement at [facility] [address] Arnoldo Robertson Neurosurgeon, AMARA, IBS, PTSD who presented to [facility] ED on 08/30 with complaints of headache and neck pain uncontrolled with tramadol, anti-inflammatories, and muscle relaxer. Her initial labs at [facility] showed temperature of 99.2?, blood pressure 141/98, heart rate 84, respiratory rate 17, oxygen saturation 96% on room air. Initial labs at [place] showed normal CBC with differential, normal coag panel, normal CMP other than creatinine of 1.1, glucose 106. CT head showed no acute intracranial abnormality. No ventriculomegaly or midline shift. Stable position to right frontal ventriculostomy catheter. Cervical spine CT showed no acute abnormality. Blood cultures were taken. The patient was transferred to [facility] for a neurologist consult and for a MRI and lumbar puncture; Dr. De Jesus (Neurology) accepted patient for transfer to [place]. After transfer, patient's case was discussed with Dr. Joe (Neurology) who evaluated the patient at bedside and felt that due to her significant history, severe uncontrolled neck pain and symptoms that she would be best suited to be transferred to [facility]. [facility] was contacted on 08/[address] Schofield (neurosurgery) graciously accepted the patient in transfer to their facility for further workup and evaluation to ensure that her shunt does not have any problems associated with her symptoms. A bed became available on 09/03 and patient was transferred at roughly 0500. During her stay, her pain was severe and pain medications were adjusted in at
== END 2019-09-04 05:05 | disposition short-term general hospital (02) | DRG 347 ==
PROVIDERS: Physician Assistant; Psychiatry & Neurology Neurology; Admitting Provider Internal Medicine; PCP Nurse Practitioner Family; Visit Provider Family Medicine
DX: M54.2 Cervicalgia (principal); F17.210 Nicotine dependence, cigarettes, uncomplicated; G93.2 Benign intracranial hypertension; Z98.2 Presence of cerebrospinal fluid drainage device; F41.1 Generalized anxiety disorder; F43.10 Post-traumatic stress disorder, unspecified; K58.9 Irritable bowel syndrome, unspecified; Z79.899 Other long term (current) drug therapy
CPT/HCPCS: 36415; 80048; 83735; 85025; 85610; 85730; A9270; J1170; J2270; J2405; J3360

== ENCOUNTER 2020-03-12 14:24 | Outpatient (NON) | payer OTHER, SELFPAY ==
[2020-03-14 11:56] LABS: Herpes Simplex Type 1 DNA PCR Not Detected (Not Detected); Herpes Simplex Type 2 DNA PCR Not Detected (Not Detected)
== END 2020-03-12 14:25 ==
LOC: CHSLAB 14:25
PROVIDERS: Visit Provider Nurse Practitioner Family
DX: B00.89 Other herpesviral infection (principal)
CPT/HCPCS: 36415; 87529

== ENCOUNTER 2020-04-02 11:25 | Outpatient (CLI) | payer OTHER, SELFPAY ==
[2020-04-02 12:00] LABS: Rheumatoid Factor Screen Negative (Negative)
[2020-04-02 12:07] LABS: CRP < 0.2 mg/dL (0.0-0.9)
[2020-04-02 12:41] LABS: Erythrocyte Sedimentation Rate 2 mm/hr (0-15)
== END 2020-04-02 11:26 | disposition home or self-care (01) ==
LOC: CHSLAB 11:29
DX: M79.672 Pain in left foot (principal)
CPT/HCPCS: 36415; 85652; 86038; 86140; 86430

== ENCOUNTER 2021-03-10 11:59 | Emergency (ER) | payer OTHER, SELFPAY ==
--- NOTE | 2021-03-10 13:34 | PC.NURSE ---
pt family informed er is very busy and erp will asasp. family member stated they will not wait any longer and will go to another ER. pt and family member walked from lobby to parking lot.
== END 2021-03-10 13:20 | disposition left against medical advice (07) ==
LOC: CHSED 12:02
PROVIDERS: Emergency Provider Emergency Medicine; PCP Family Medicine
DX: Z04.9 Encounter for examination and observation for unspecified reason (principal)
CPT/HCPCS: 99199

== ENCOUNTER 2021-03-10 13:50 | Emergency (ER) | payer OTHER, SELFPAY ==
--- NOTE | ~2021-03-10 | CT_ITS ---
EXAMINATION: CT abdomen pelvis wo con EXAM DATE: 03/10/2021 14:49 INDICATION: Abdominal pain, pressure. TECHNIQUE: Spiral CT of the abdomen and pelvis was performed without contrast. Axial, coronal and s agittal images of the abdomen and pelvis were reviewed. The dose-length product (DLP) for this exami nation was 341.50 mGy-cm. The exposure was tailored according to patient size (auto mA exposure cont rol), and iterative reconstruction (ASIR) was used as additional dose reduction technique. Comparison is made to prior examination from 05/28/2013. FINDINGS: There is a ventriculoperitoneal shunt. The liver, spleen, adrenal glands and pancreas are unremarkable. Peripherally calcified 1.5 cm gallstone. Gallbladder otherwise unremarkable. There is no nephrolithiasis or hydronephrosis. Calcifications in the pelvis are believed to be phleboliths. H ysterectomy. Small free pelvic fluid likely physiologic. The bladder is unremarkable. There is no re troperitoneal or pelvic lymphadenopathy. Low-lying cecal base in hysterectomy bed. There are no findings to suggest appendicitis. The stomach and small bowel are unremarkable. There is moderate amount of colonic stool in the ascending and tr ansverse colon. No free intraperitoneal gas. The heart is normal in size. There are no pericardi al or pleural effusions. The lung bases are unremarkable. There are no osteoblastic or osteolytic l esions identified. IMPRESSION: 1. Moderate amount of colonic stool. 2. Cholelithiasis. Reviewed, dictated and finalized at location B. [facility]
[2021-03-10 13:51] VITALS: BP 116/64; PULSE 97; RESP 24; TEMP 36.2; O2SAT 96
[2021-03-10 14:09] VITALS: BP 101/67; PULSE 91; RESP 18; O2SAT 100
--- NOTE | 2021-03-10 14:33 | ED.ABDPAIN ---
HPI - Abdominal Pain General Chief Complaint: Abdominal Pain Stated Complaint: CONSTIPATION ?STOOL BALL Time Seen by Provider: 03/10/21 14:07 Source: patient, family and RN notes reviewed Mode of arrival: ambulatory Limitations: no limitations History of Present Illness HPI narrative: 31-year-old female with history of constipation presented to the emergency department for evaluation of rectal pressure and constipation for the past 2 days. Patient states she did have a history of constipation as a child. Patient states over the last 2 days she has had increased rectal pressure. Patient feels that she needs to have a bowel movement but the bowel movement is too large for her to pass. Related Data Allergies Allergy/AdvReac Type Severity Reaction Status Date / Time shellfish derived Allergy Severe Unknown Verified 04/08/20 13:17 iodine Allergy Intermediate Unknown Verified 04/08/20 13:17 Review of Systems Review of Systems: CONSTITUTIONAL: Denies fever, chills, or sweats. EYES: Denies visual changes, redness, or discharge. ENT: Denies rhinorrhea, congestion, sore throat, or otalgia. CARDIOVASCULAR: Denies chest pain, palpitations, or edema. RESPIRATORY: Denies cough or dyspnea. GASTROINTESTINAL: Constipation and lower abdominal pain and rectal pressure GENITOURINARY: Denies dysuria or hematuria. SKIN: Denies rash or itching. MUSCULOSKELETAL: Denies back pain, joint pain, or myalgia. NEUROLOGIC: Denies headache, numbness, or weakness. [facility] Past Medical History Medical History AMARA (generalized anxiety disorder) IBS (irritable bowel syndrome) IIH (idiopathic intracranial hypertension) Nicotine addiction Nicotine dependence, unspecified, uncomplicated Pseudotumor cerebri PTSD (post-traumatic stress disorder) Surgical History Surgical History Hx of hysterectomy (~11/28/10) S/P laparoscopic surgery For endometriosis multiple times S/P CORPORATE DEVELOPMENT OFFICER shunt [facility] [address] [facility] [address] Robertson Family History Family History Mother Hypertension Diabetes mellitus Other Unknown family medical history Social History Social History Smoking packs per day: 1 Smoking cigarettes per day: 20.0 Years smoked: 15 Smoking pack-years: 15.00 Smoking status: Current every day smoker Tobacco type: cigarettes Alcohol intake: never Substance use: current Substance use type: marijuana Additional occupation/education comments: She is a stay at home mother Gender identity (if verbalized by the patient): Female Spiritual care concerns: No Exam Narrative: APPEARANCE: Well appearing, no pain, no distress, well-nourished. HEAD: normocephalic, atraumatic. EYES: PERRLA/EOMI, conjunctivae clear. NECK: Supple. No adenopathy, no masses. RESPIRATORY: Airway patent, respirations nonlabored. Clear to auscultation bilaterally, no rales, rhonchi, wheezing. CARDIOVASCULAR: Regular rate and rhythm without murmurs rubs or gallops. ABDOMINAL: Soft, nontender, nondistended, normal bowel sounds, upon digital rectal exam patient had a large stool ball in the rectal vault. Patient did tolerate the digital rectal exam and partial digital disimpaction. MUSCULOSKELETAL: Moves all extremities. Strength/ROM intact, No edema, No calf tenderness. NEURO: Alert. Cranial nerves II through XII intact. SKIN: Warm, dry. Normal Color Course Course Emergency Course: Patient tolerated the digital rectal exam. Patient states she was able to have 2 large bowel movements and feels completely improved. Patient is declining labs and any additional work-up. Vital Signs Vital signs: Vital Signs Temperature 97.2 F L 03/10/21 13:51 Pulse Rate 97 03/10/21 13:51 Respiratory Rate 24 H 03/10/21 13:51 Blood Pressure 116/64 03/10/21 13:51 Pul
--- NOTE | 2021-03-10 14:57 | PC.NURSE ---
patient refused blood draw and IV. Patient stated, I am all better and would like to leave now. I don't want anything else done EDP Deandre notified.
--- NOTE | 2021-03-10 14:59 | PC.NURSE ---
unable to do focused assessment because patient did not want to be touched. Patient stated, I am done and want nothing else done to me
== END 2021-03-10 15:18 | disposition home or self-care (01) ==
PROVIDERS: Emergency Provider Emergency Medicine; PCP Family Medicine
DX: K59.00 Constipation, unspecified (principal); K80.20 Calculus of gallbladder without cholecystitis without obstruction; F17.210 Nicotine dependence, cigarettes, uncomplicated; F41.9 Anxiety disorder, unspecified
CPT/HCPCS: 74176; 99284

== ENCOUNTER 2021-05-02 10:46 | Emergency (ER) | payer OTHER, SELFPAY ==
[2021-05-02 11:00] VITALS: BP 124/99; PULSE 87; RESP 20; TEMP 36.8; O2SAT 100
--- NOTE | 2021-05-02 11:01 | ED.EXTPRO ---
HPI - Extremity Problem General Chief complaint: Extremity Injury, Lower Stated complaint: both ankle pain for over a week Time Seen by Provider: 05/02/21 11:01 Source: patient and RN notes reviewed Mode of arrival: ambulatory Limitations: no limitations History of Present Illness HPI Narrative: Patient states that she has been increasing her exercise at the gym trying to get back into shape over the last 3 months. Eight days ago she began having pain in her bilateral ankles so she stopped doing lower extremity exercises but is still on her feet to do upper body and core exercises. She has tried Tylenol and Motrin but only taking 400 mg of Motrin 3 times a day and neither of them are helping. She denies any traumatic injury. She denies any fever chills. She has no history of gout. MD Complaint: joint swelling and joint paint Onset (ago): day(s) (8) Pain Consistency: constant Location: left, right and lower extremity (ankles) Severity scale (1-10): 7 Quality: burning, aching, dull and constant Radiation: none Relieving factors: nothing Exacerbating factors: range of motion and walking Associated symptoms: denies other symptoms Related Data Allergies Allergy/AdvReac Type Severity Reaction Status Date / Time shellfish derived Allergy Severe Unknown Verified 05/02/21 11:45 iodine Allergy Intermediate Unknown Verified 05/02/21 11:45 Review of Systems Review of Systems: All systems reviewed & are unremarkable except as noted in HPI and below PMFSH Past Medical History Medical History AMARA (generalized anxiety disorder) IBS (irritable bowel syndrome) IIH (idiopathic intracranial hypertension) Nicotine addiction Nicotine dependence, unspecified, uncomplicated Pseudotumor cerebri PTSD (post-traumatic stress disorder) Surgical History Surgical History Hx of hysterectomy (~11/28/10) S/P laparoscopic surgery For endometriosis multiple times S/P METAL ALLOY SCIENTIST shunt 2017 at [facility] [address]. Robertson Family History Family History Mother Hypertension Diabetes mellitus Other Unknown family medical history Social History Social History Smoking packs per day: 1 Smoking cigarettes per day: 20.0 Years smoked: 15 Smoking pack-years: 15.00 Smoking status: Current every day smoker Tobacco type: cigarettes Alcohol intake: never Substance use: current Substance use type: marijuana Additional occupation/education comments: She is a stay at home mother Gender identity (if verbalized by the patient): Female Spiritual care concerns: No Exam Const: General: healthy appearing, no acute distress and alert Nutritional Appearance: well nourished Orientation/consciousness: patient oriented x3 Other: Female nurse in room during examination. HENMT: Head: normal to inspection Ears: external ears normal Eyes: Conjunctivae: conjunctivae normal Pupils: Equal, round and reactive pupils present EOM: EOMs intact bilaterally Neck: Neck: normal visual inspection Resp: Effort & Inspection: normal respiratory effort Auscultation: clear to auscultation bilaterally Cardio: Rate: regular rate Rhythm: regular rhythm GI: GI Palp: Yes Soft to palpation and No Tenderness to palpation present (GI) Auscultation: normal bowel sounds Back/Spine/Pelvis: Cervical Spine: cervical ROM normal Thoracic/Lumbar Spine: thoraco-lumbar ROM normal Skin: General skin exam: normal color Neuro: General: patient oriented x3, moves all extremities, no focal motor deficits and CN's II-XI intact bilaterally Speech: normal speech Extrem: General: normal exam except as noted Right lower extremity: ankle Details: tenderness Location: of the anterior talofibular ligament, anteromedially and anterolaterally, swelling Details: diffusely and ab
--- NOTE | 2021-05-02 11:46 | PC.NURSE ---
1110 FEMALE NURSE WITH DOCTOR LUC FOR PT ASSESSMENT
[2021-05-02 11:56] VITALS: BP 128/86; PULSE 84; RESP 20; TEMP 36.8; O2SAT 100
== END 2021-05-02 11:57 | disposition home or self-care (01) ==
PROVIDERS: Emergency Provider Emergency Medicine; PCP Family Medicine
DX: M25.571 Pain in right ankle and joints of right foot (principal)
CPT/HCPCS: 99283

== ENCOUNTER 2023-03-28 18:15 | Emergency (ER) | payer OTHER, SELFPAY ==
--- NOTE | ~2023-03-28 | XR_ITS ---
EXAMINATION: XR humerus RT DATE: 03/28/2023 18:56 INDICATION: Right humeral head pain. Fall. TECHNIQUE: 2 views of right humerus were obtained. COMPARISON: None. FINDINGS: Bone alignment is normal. No fracture. Joint spaces are normal. There is a right-sided vent riculoperitoneal shunt. IMPRESSION: 1. Normal right humerus. Reviewed, dictated and finalized at location E. R RESOURCE SPECIALIST IMPRESSION: 1. Normal right humerus.
[2023-03-28 18:17] VITALS: BP 127/88; PULSE 85; RESP 19; TEMP 36.4; O2SAT 99
--- NOTE | 2023-03-28 18:40 | ED.UPPEXIN ---
HPI - Extremity Injury (Upper) General Chief Complaint: Extremity Injury, Upper Stated Complaint: fall/shoulder injury Time Seen by Provider: 03/28/23 18:39 Source: patient Mode of arrival: ambulatory Limitations: no limitations History of Present Illness HPI narrative: 33-year-old female, smoker generalized anxiety disorder, IBS, pseudotumor cerebri, PTSD, status post hysterectomy for endometriosis fell down the stairs and landed on her right upper arm. no head injury. No loss of consciousness. She presents with right upper arm pain with decreased range of motion. MD complaint: injury to: right Onset (ago): hour(s) ( 10 hours ago) Other Extremity Injury: Right: arm Other injuries: none Handedness: right Place: home Severity: severe Relieving factors: immobilization Exacerbating factors: movement of extremity Context: fall Associated symptoms: denies other symptoms Related Data Allergies Allergy/AdvReac Type Severity Reaction Status Date / Time shellfish derived Allergy Severe Unknown Verified 05/02/21 11:45 iodine Allergy Intermediate Unknown Verified 05/02/21 11:45 Review of Systems Review of Systems: All systems reviewed & are unremarkable except as noted in HPI and below Constitutional: Constitutional: Reports as per HPI and Reports no additional constitutional complaints Eyes: Eyes: Reports as per HPI and Reports no additional eye complaints ENT: Reports system reviewed and no additional complaints, except as documented and Reports as per HPI Cardiovascular: Cardiovascular: Reports as per HPI and Reports no additional cardiovascular complaints Respiratory: Respiratory: Reports as per HPI and Reports no additional respiratory complaints Gastrointestinal: Gastrointestinal: Reports as per HPI and Reports no additional gastrointestinal complaints Genitourinary: Genitourinary: Reports no additional female genitourinary complaints and Reports as per HPI Musculoskeletal: Comments: right upper arm pain. Integumentary/Breasts: Skin/Breast: Reports system reviewed and no additional complaints, except as docu and Reports as per HPI Neurologic: Reports system reviewed and no additional complaints, except as documented and Reports as per HPI Psychiatric: Psychiatric: Reports no additional psychiatric complaints and Reports as per HPI Endocrine: Endocrine: Reports no additional endocrine complaints and Reports as per HPI Hematologic/Lymphatic: Hematologic/Lymphatic: Reports no additional hematologic/lymphatic complaints and Reports as per HPI Allergic/Immunologic: Allergic/Immunologic: Reports no additional allergic/immunologic complaints and Reports as per HPI [facility] Past Medical History Medical History AMARA (generalized anxiety disorder) IBS (irritable bowel syndrome) IIH (idiopathic intracranial hypertension) Nicotine addiction Nicotine dependence, unspecified, uncomplicated Pseudotumor cerebri PTSD (post-traumatic stress disorder) Surgical History Surgical History Hx of hysterectomy (~11/28/10) S/P laparoscopic surgery For endometriosis multiple times S/P FBI FIELD AGENT shunt 2017 at [facility] [address]. 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
--- NOTE | 2023-03-28 19:01 | PC.NURSE ---
report to franklyn knowles.
== END 2023-03-28 19:19 | disposition home or self-care (01) ==
PROVIDERS: Emergency Provider Internal Medicine Critical Care Medicine; PCP Nurse Practitioner
DX: M79.621 Pain in right upper arm (principal); F17.210 Nicotine dependence, cigarettes, uncomplicated; W10.9XXA Fall (on) (from) unspecified stairs and steps, initial encounter; Y92.009 Unspecified place in unspecified non-institutional (private) residence as the place of occurrence of the external cause; Z90.710 Acquired absence of both cervix and uterus
CPT/HCPCS: 73060; 99283; A4565

== ENCOUNTER 2024-02-24 10:28 | Emergency (ER) | payer OTHER, SELFPAY ==
--- NOTE | ~2024-02-24 | XR_ITS ---
XR chest 1V portable DATE: 02/24/2024 10:43 INDICATION: Cough, dyspnea, chest pain for 3 days TECHNIQUE: Portable AP chest on 02/24/2024 at 1040 hours COMPARISON: 10/28/2018 PA and lateral chest FINDINGS: Stable mild prominence of the right infrahilar area since 10/28/2018. Normal heart size. No hilar or mediastinal mass or adenopathy is evident. The lungs are clear of infiltrate or consolidation. No pleural effusion or pulmonary vascular congest ion or pneumothorax. IMPRESSION: No active cardiopulmonary disease Reviewed, dictated and finalized at location A. [place] COMMISSION SALES ASSOCIATE
[2024-02-24 10:28] VITALS: BP 153/94; PULSE 79; RESP 20; TEMP 36.8; O2SAT 100
--- NOTE | 2024-02-24 10:35 | ED_ITS ---
HPI - General Adult General Chief complaint: Upper Respiratory Infection Stated complaint: flu like symptoms Time Seen by Provider: 02/24/24 10:29 History of Present Illness HPI narrative: Yovana is a 33F with a PMH of a shunt that presented to the ED with a few days of cough, fatigue, body aches, dyspnea, nausea and a couple episodes of non- bloody vomiting. Many of her friends have the flu. Related Data Allergies Allergy/AdvReac Type Severity Reaction Status Date / Time shellfish derived Allergy Severe Unknown Verified 02/24/24 10:35 iodine Allergy Intermediate Unknown Verified 02/24/24 10:35 Review of Systems 2 Review of Systems: All systems reviewed & are unremarkable except as noted in HPI and below PMFSH Past Medical History Medical History Nicotine dependence, unspecified, uncomplicated Nicotine addiction Pseudotumor cerebri IIH (idiopathic intracranial hypertension) AMARA (generalized anxiety disorder) PTSD (post-traumatic stress disorder) IBS (irritable bowel syndrome) Surgical History Surgical History S/P laparoscopic surgery For endometriosis multiple times S/P TABLEAU REPORT DEVELOPER shunt 2017 at [facility] Dr. 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 Gender identity (if verbalized by the patient): Female Spiritual care concerns: No Exam 2 Const: General: cooperative, healthy appearing, comfortable, no acute distress, well developed, alert, awake and Physically active O rientation/consciousness: oriented to person, oriented to place and oriented to time HENMT: Head: normal to inspection, normocephalic and atraumatic Ears: h earing grossly normal bilaterally and external ears normal Face/Nose/Sinus: N ormal external nose present Other: dry mucous membranes Eyes: General: appearance normal, both eyes and all related structures P eriorbital: periorbital findings normal Sclera: sclerae normal Pupils: E qual, round and reactive pupils present Neck: Neck: normal visual inspection Chest: Chest palpation & inspection: normal inspection of the chest Resp: Effort & Inspection: normal respiratory effort, able to speak in complete sentences and no respiratory distress Auscultation: clear to auscultation bilaterally Cardio: Jugular venous distension: no JVD Rate: regular rate Rhythm: r egular rhythm GI: Inspection: normal to inspection GI Palp: Yes Soft to palpation A uscultation: normal bowel sounds Skin: General skin exam: normal color and no rashes or lesions noted Neuro: General: oriented to person, oriented to place and oriented to time Cranial nerves: Yes Equal, round and reactive pupils present Extrem: General: normal to inspection Course Course Emergency Course: Ordered fluids, zofran and toradol, as well as viral testing and a CXR XR chest 1V portable DATE: 02/24/2024 10:43 INDICATION: Cough, dyspnea, chest pain for 3 days TECHNIQUE: Portable AP chest on 02/24/2024 at 1040 hours COMPARISON: 10/28/2018 PA and lateral chest FINDINGS: Stable mild prominence of the right infrahilar area since 10/28/2018. Normal heart size. No hilar or mediastinal mass or adenopathy is evident. The lungs are clear of infiltrate or consolidation. No pleural effusion or pulmonary vascular congestion or pneumothorax. IMPRESSION: No active cardiopulmonary disease +for influenza and COVID Given her shunt and coinfection will treat with antivirals for covid as she is out of the window for Tamiflu Vital Signs Vital signs: Vital Signs Temperature 98.2 F 02/24/24 10:28 Pulse Rate 79 02/24/24 10:28 Respiratory Rate 02/24/24 10:28 Blood Pressure 153/94 H 02/24/24 10:28 Pulse Oximetry 100 02/24/24 10:28 Oxygen Delivery Room Air 02/24/24 10:28 Temperature 100.0 F H 02/24/24 11:37 Pulse Rate 67 02/24/24 11:37 Respiratory Rate 02/24/24 11:37 Blood Pressure 124/72 02/24/24 11:37 Pulse Oximetry 98 02/24/24 11:37 Oxygen Delivery Room Air 02/24/24 11:37 Medical Decision Making Vital Signs Vital Signs: Vital Signs Temperature 98.2 F 02/24/24 10:28 Pulse Rate 79 02/24/24 10:28 Respiratory Rate 20 02/24/24 10:28 Blood Pressure 153/94 H 02/24/24 10:28 Pulse Oximetry 100 02/24/24 10:28 Oxygen Delivery Room Air 02/24/24 10:28 Temperature 100.0 F H 02/24/24 11:37 Pulse Rate 67 02/24/24 11:37 Respiratory Rate 20 02/24/24 11:37 Blood Pressure 124/72 02/24/24 11:37 Pulse Oximetry 98 02/24/24 11:37 Oxygen Delivery Room Air 02/24/24 11:37 Lab Data 02/24/24 10:47 02/24/24 10:47 Labs: Lab Results 02/24/24 02/24/24 Range/Units 10:29 10:47 WBC 5.1 (4.8-10.8) K/mm3 RBC 4.86 (4.20-5.40) M/mm3 Hgb 14.2 (12.0-15.0) g/dL Hct 41.5 (35.0-49.0) % MCV 85.4 (78.0-102.0) fL MCH 29.2 (27.0-31.0) pg MCHC 34.2 (32-36) g/dL RDW 12.1 (11.6-14.4) % Plt Count 218 (150-420) K/mm3 MPV 8.9 L (9.2-11.8) fl Immature Gran % (Auto) 0.2 H (0.0-0.0) % Neut % (Auto) 82.0 H (50.0-70.0) % Lymph % (Auto) 9.4 L (18.0-42.0) % [place] % (Auto) 7.2 (2.0-11.0) % Eos % (Auto) 0.8 L (1.0-6.0) % Baso % (Auto) 0.4 (0.0-1.0) % Lymph # (Auto) 0.48 L (1.10-4.50) K/mm3 [place] # (Auto) 0.37 (0.10-0.90) K/mm3 Eos # (Auto) 0.04 (0.02-0.50) K/mm3 Baso # (Auto) 0.02 (0.00-0.10) K/mm3 Abs Immat Gran (auto) 0.01 H (0.00-0.00) K/mm3 Absolute Neuts (auto) 4.21 (1.70-7.20) K/mm3 Absolute Nucleated RBC 0.00 (0.00-0.00) K/mm3 Nucleated RBC % 0.0 (0-0.0) % Sodium 140 (136-145) mmol/L Potassium 3.9 (3.5-5.1) mmol/L Chloride 104 (98-108) mmol/L Carbon Dioxide 24 (21-32) mmol/L Anion Gap 12 (4-12) mmol/L BUN 17 (7-18) mg/dL Creatinine 1.21 H (0.55-1.02) mg/dL Estim Creat Clear Calc 58 ml/min Estimated GFR 51 L (59 - ) Glucose 124 H (70-99) mg/dL Calculated Osmolality 292 (285-295) mOsm/kg Calcium 9.5 (8.5-10.1) mg/dL Total Bilirubin 0.6 (0.00-1.00) mg/dL AST 13 L (15-37) U/L ALT 28 (14-59) U/L Alkaline Phosphatase 63 (46-116) U/L Total Protein 7.2 (6.4-8.2) g/dL Albumin 4.0 (3.4-5.0) g/dL Influenza A (RT-PCR) Positive A (Negative) Influenza B (RT-PCR) Negative (Negative) RSV (RT-PCR) Negative (Negative) SARS-CoV-2 RNA (RT-PCR) Positive A (Negative) Discharge Plan Discharge Clinical Impression: COVID, Influenza Patient Disposition: Home, Self-Care Condition: Stable Instructions: COVID-19 (Coronavirus Disease 2019) (ED) Patient Language: Colombian Prescriptions: New Paxlovid 300 mg (150 mg x 2)-100 mg tablets,dose pack See Rx Instructions .ROUTE .COMPLEX Qty: 30 0RF Rx Instructions: take TWO 150 mg tablets of nirmatrelvir with ONE 100 mg tablet of ritonavir twice daily for 5 days ondansetron 4 mg tablet,disintegrating 4 mg PO Q8H PRN (Reason: nausea and vomiting) Qty: 20 0RF meloxicam 15 mg tablet 15 mg PO DAILY Qty: 10 0RF Follow-up/Referrals: UNKNOWN,DOCTOR [Non-Staff] - Stand Alone Forms: Work/School Release IP
--- NOTE | 2024-02-24 10:42 | PC.NURSE ---
Covid culture sent to lab
[2024-02-24] MEDS: SODIUM CHLORIDE 0.9% IV 1,000 ML 999 ML IV CONT (10:47)
[2024-02-24] MEDS: ONDANSETRON INJ 4 MG/2 ML VIAL IV PUSH (10:48)
[2024-02-24] MEDS: KETOROLAC 30 MG/ML VIAL (*BKC) IM (10:48)
[2024-02-24 10:51] LABS: Basophils Absolute Auto 0.02 K/mm3 (0.00-0.10); Basophils Percent Auto 0.4 % (0.0-1.0); Eosinophils Absolute Auto 0.04 K/mm3 (0.02-0.50); Eosinophils Percent Auto 0.8 % (1.0-6.0); Hematocrit 41.5 % (35.0-49.0); Hemoglobin 14.2 g/dL (12.0-15.0); Immature Granulocyte Absolute 0.01 K/mm3 (0.00-0.00); Immature Granulocyte Percent A 0.2 % (0.0-0.0); Lymphocytes Absolute Auto 0.48 K/mm3 (1.10-4.50); Lymphocytes Percent Auto 9.4 % (18.0-42.0); Mean Corpuscular HGB Conc 34.2 g/dL (32-36); Mean Corpuscular Hemoglobin 29.2 pg (27.0-31.0); Mean Corpuscular Volume 85.4 fL (78.0-102.0); Mean Platelet Volume 8.9 fl (9.2-11.8); Monocytes Absolute Auto 0.37 K/mm3 (0.10-0.90); Monocytes Percent Auto 7.2 % (2.0-11.0); Neutrophils Absolute Auto 4.21 K/mm3 (1.70-7.20); Platelet Count Result 218 K/mm3 (150-420); Red Blood Count 4.86 M/mm3 (4.20-5.40); Red Cell Distribution Width 12.1 % (11.6-14.4); White Blood Count 5.1 K/mm3 (4.8-10.8)
[2024-02-24 11:05] LABS: Alanine Aminotransferase 28 U/L (14-59); Alkaline Phosphatase 63 U/L (46-116); Anion Gap 12 mmol/L (4-12); Aspartate Amino Transferase 13 U/L (15-37); Bilirubin,Total 0.6 mg/dL (0.00-1.00); Blood Urea Nitrogen 17 mg/dL (7-18); Calcium 9.5 mg/dL (8.5-10.1); Carbon Dioxide 24 mmol/L (21-32); Chloride 104 mmol/L (98-108); Estimated CRCL calculation 58 ml/min; Estimated Glomerular Filt Rate 51; Glucose 124 mg/dL (70-99); Osmolality Calculated 292 mOsm/kg (285-295); Potassium 3.9 mmol/L (3.5-5.1); Sodium 140 mmol/L (136-145); Total Protein 7.2 g/dL (6.4-8.2)
--- NOTE | 2024-02-24 11:13 | PC.NURSE ---
RESTING QUIETLY ON STRETCHER. IV FLUIDS INFUSING TO RIGHT AC. CALL LIGHT IN REACH.
[2024-02-24 11:19] LABS: SARS-CoV-2 RNA PCR Positive (Negative)
[2024-02-24 11:20] LABS: Influenza A QL RT-PCR Positive (Negative); Influenza B QL RT-PCR Negative (Negative); RSV RNA, RT-PCR Negative (Negative)
[2024-02-24 11:37] VITALS: BP 124/72; PULSE 67; RESP 20; TEMP 37.8; O2SAT 98
--- NOTE | 2024-02-24 11:52 | PC.NURSE ---
PATIENT HAS CALLED HER FATHER TO COME AND GET HER.
--- OUTSIDE RECORDS SUMMARY | 2024-03-02 05:35 | XMS_ITS | Referral Summary ---
Author Organization [facility] Address [address] [place] [address] Care Team Providers Care Bench Lay Out Technician Name Role Phone Maxim Masterson MD Primary Care Provider [phone] Source Comments [facility],non-owned Affiliates and Associated Physician Practices is amultiple site organization consisting of ambulatory clinics and hospital sitesin [place], [place], [place] and [place]. This disclosure is being madepursuant to the Care Everywhere program and may not contain all information available regarding this patient. Last updated 17.[facility] Allergies Active Allergy Reactions Criticality Noted Date Comments Iodine Swelling 07/22/2020 Povidone Iodine Swelling Low 05/11/2016 Shellfish Allergy Anaphylaxis High 09/27/2016 Medications Be aware that medications may not be up to date on this document. Always verify current medications with the patient. 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/P DROP PRESS HAND shunt 10/16/2016 Overview (04/24/2021): Overview: 04/24 strata @1.5 JU strata II @ 1.5 Benign intracranial hypertension 05/11/2016 Benign intracranial hypertension 05/11/2016 Social History Tobacco Use Types Packs/Day Years Used Date Smoking Tobacco: Every Day Cigarettes Smokeless Tobacco: Never Tobacco Cessation:Ready to Q uit: No; Counseling Given: Yes Alcohol Use Standard Drinks/Week Comments No 0 (1 standard drink = 0.6 oz pur e alcohol) PHQ-2 Answer Date Recorded PHQ2 TOTAL SCORE 3 08/03/2020 Sex and Gender Information Value Date Recorded Sex Assigned at Not on file Gender Identity Not on file Sexual Orientation Not on file Last Filed Vital Signs Vital Sign Reading Time Taken Comments Blood Pressure 100/82 08/03/2020 2:33 PM CDT Pulse 64 08/03/2020 2:33 PM CDT Temperature 37 ??C (98.6 ??F) 08/03/2020 2:33 PM CDT Respiratory Rate 16 08/03/2020 2:33 PM CDT Oxygen Saturation 96% 08/03/2020 2:33 PM CDT Inhaled Oxygen Concentration - - Weight 75.3 kg (166 lb) 08/03/2020 2:33 PM CDT Height 175.3 cm (5' 9 ) 08/03/2020 2:33 PM CDT Body Mass Index 24.51 08/03/2020 2:33 PM CDT Functional Status Functional Status Response Date of Assess ment Is person deaf or have serious hearing difficult y? No 09/04/2019 Is person blind or have serious difficulty seein g? No 09/04/2019 Does person have serious dif ficulty walking/climbing stairs? No 09/04/2019 Does person have difficulty dressing/bathing? No 09/04/2019 Does person have difficulty doing errands alone? No 09/04/2019 Cognitive Status Response Date of Assessm ent Does person have difficulty concentrating/remembering/making decisions? No 09/04/2019 Plan of Treatment Not on file Medical Devices Implanted Type Area Missing Persons Investigator Device Identifier Shelf Expiration Date Model / Serial / Lot Shunt Shunt STRATA / / Procedures Procedure Name Priority Date/Time Associated Diagnosis Comments HEPATITIS C ANTIBODY Routine 07/22/2020 10:19 AM CDT Livedo reticularis History of multiple miscarriages from Last 3 Months or Most Recently Relevant to Health Maintenance Results * HEPATITIS C ANTIBODY (07/22/2020 10:19 AM CDT) Hepatitis C Antibody Non-react kalen Non-reac tive 07/22/2020 12:35 PM CDT [facility] Comment:Hepatitis C Antibody screen indicates no serologic evidence of past or current infection with Hepatitis C Virus. Patients with unexplained liver disease who are immunocompromised or suspected of having acute Hepatitis C infection may benefit from Nucleic Acid Test (BONNIE) for Hepatitis C Viral RNA to confirm Hepatitis C status. Blood BLOOD SPECIMEN / Unknown Lab Venipuncture / Unknown 07/22/2020 10:19 AM CDT 07/22/2020 10:37 AM CDT Ankur Osorio MD LAB - CHEMISTRY RAMILA RAMESH [facility] Organization Address City/State/ZIP Co de Phone Number [facility] [address] [place] [address], [facility] [phone] from Last 3 Months or Most Recently Relevant to Health Maintenance Care Teams Bench Lay Out Technician Relationship Specialty Start Date End Date Maxim Masterson MD [address] [place] [address] PCP - General 09/27/16
--- OUTSIDE RECORDS SUMMARY | 2024-03-02 05:35 | XMS_ITS | Encounter Summary ---
Author Organization [facility] Address [address] [facility] [place] [address] Care Team Providers Care Geodetic Survey Director Name Role Phone Maxim Masterson MD Primary Care Provider [phone] Reason for Visit * Radiology Services (Routine) - Closed Specialty Diagnoses / Procedures Referred By Contac t Referred To Contact MRI Diagnoses Inversion of nipple Procedures MRI BREAST BILAT WWO CONTRAST MRI BREAST BILAT WWO CONTRAST Rohan Shah MD [address] [place] [address] Referral ID Status Reason Start Date Expiration Date Visits Re quested Visits Authorized [id number] Closed 03/29/2021 06/26/2021 1 1 Encounter Details Date Type Department Care Team (Latest Contact Info) Description 04/24/2021 10:00 AM CASE WORKER - 04/24/2021 11:59 PM [facility] Hospital Encounter [facility] [address] [place] [id number] Discharge Disposition: Home or Self Care Social History Tobacco Use Types Packs/Day Years Used Date Smoking Tobacco: Every Day Cigarettes Smokeless Tobacco: Never Alcohol Use Standard Drinks/Week Comments No 0 (1 standard drink = 0.6 oz pur e alcohol) PHQ-2 Answer Date Recorded PHQ2 TOTAL SCORE 3 08/03/2020 Sex and Gender Information Value Date Recorded Sex Assigned at Not on file Gender Identity Not on file Sexual Orientation Not on file COVID-19 Exposure Response Date Recorded In the last month, have you been in contact with someone who was confirmed or suspected to have Coronavirus / COVID-19? No / Unsure 04/24/2021 9:54 AM CASE WORKER documented as of this encounter Functional Status Functional Status Response Date of [...] person have difficulty concentrating/remembering/making decisions? No 09/04/2019 documented as of this encounter Plan of Treatment Not on file documented as of this encounter Procedures Procedure Name Priority Date/Time Associated Diagnosis Comments MRI BREAST BILAT WWO CONTRAST Routine 04/24/2021 11:37 AM CASE WORKER Inversion of nipple CREATININE - POCT INTERFACED Routine 04/24/2021 10:46 AM CASE WORKER documented in this encounter Results * MRI BREAST BILAT WWO CONTRAST (04/24/2021 11:37 AM CASE WORKER) Anatomical Region Laterality Modality Breast Bilateral Magnetic Resonan ce 04/25/2021 1:47 PM CASE WORKER Impressions 04/26/2021 9:44 AM CASE WORKER IMPRESSION: 1. Right breast: Multiple cysts and fibroadenomas. No etiology for nipple discharge is identified. 2. Left breast: Multiple cysts and fibroadenomas. No etiology for nipple discharge is identified. RECOMMENDATION: Clinical surveillance of the patient is recommended. Follow-up imaging as needed, when clinically retained. Screening mammography is due at age 38. Patient will receive her results from her physician. RIGHT BREAST MRI: BI-RADS Category 2: Benign LEFT BREAST MRI: BI-RADS Category 2: Benign OVERALL ASSESSMENT: BI-RADS Category 2: Benign This report was electronically signed by VERITO KIMBROUGH ??on 04/26/2021 9:44 AM . Narrative 04/26/2021 9:44 AM CASE WORKER SCREENING MRI OF BILATERAL BREASTS WITHOUT AND WITH INTRAVENOUS CONTRAST, WITH DYNACAD ANALYSIS. DATE OF EXAM: 04/24/2021 HISTORY: N64.59: Inversion of nipple, nipple discharge, breast pain (side was not characterized). LAST MENSTRUAL CYCLE: Not applicable COMPARISON: No relevant examinations. CONTRAST: 7 mL IV Gadavist. TECHNICAL INFORMATION: Study performed on a 3.0 Sara magnet. A dedicated breast coil was utilized. Sagittal STIR also obtained of the right breast. Bilateral axial T1 and axial STIR images, followed by 3D axial T1 fat sat images pre-contrast and 5 post-contrasted 3D axial fat sat series dynamically. Subtraction was performed on all postcontrast images. Images were reviewed on a workstation with 3D post processing and DynaCAD was utilized. FINDINGS: Amount of fibroglandular tissue (FGT): Heterogeneous fibroglandular tissue. Background parenchymal enhancement (BPE): Minimal Symmetry of enhancement: Symmetric. RIGHT BREAST: A right axillary lymph node with normal morphology and size is present. There are multiple well-circumscribed T2 hyperintense small lesions scattered in the medial and lateral aspect of anterior and middle depth of the right breast, some of them demonstrate enhancement on the second and third runs with a progressive pattern of enhancement on Dynacad consistent with fibroadenomas. The others do not enhance and represent simple cysts. There is no evidence of nipple inversion, retroareolar ductal ectasia or skin thickening. No suspicious enhancement, evidence of malignancy or dilated ducts are identified. LEFT BREAST: Similar to the other side, there are multiple scattered well-circumscribed T2 hyperintense lesions in anterior and middle depth of the left breast, both medially and laterally, of which some enhance progressively with a pattern similar to fibroadenoma and some do not enhance and represent simple cysts. There is no evidence of nipple inversion, retroareolar ductal ectasia or ductal dilatation in the remainder of the breast. No suspicious enhancement, evidence of malignancy or enlarged axillary lymph nodes are identified. Rohan Shah MD MR ORDERABLES * (ABNORMAL) CREATININE - POCT INTERFACED (04/24/2021 10:46 AM CASE WORKER) Creatinine POCT 0.95 0.30 - 1.30 mg/dL 04/24/2021 11:[address] [facility] eGFR 81(L) >90 mL/min/1.7 3 m2 04/24/2021 11:40 AM [facility] Blood BLOOD SPECIMEN / Unknown 04/24/2021 10:46 AM CASE WORKER 04/24/2021 11:40 AM CASE WORKER Provider Unknown LAB - POINT OF CARE ORDERABLES [address] [address], [facility] [phone] documented in this encounter Visit Diagnoses Diagnosis Inversion of nipple Other sign and symptom in breast documented in this encounter Administered Medications Inactive Administered Medications - up to 3 most recent administrations Medication Order MAR Action Action Date Dose Rate Site gadobutrol (Gadavist) injection Intravenous, CONTRAST ONCE, Starting on 04/24/21 at 1126, Until 04/25/21 at 0121 $ Given - Contrast 04/24/2021 11:27 AM CASE WORKER 7 mL documented in this encounter Care Teams Geodetic Survey Director Relationship Specialty Start Date End Date Maxim Masterson MD [address] [place] [id number] PCP - General 09/27/16 documented as of this encounter
--- OUTSIDE RECORDS SUMMARY | 2024-03-02 05:35 | XMS_ITS | Encounter Summary ---
Author Organization [facility] Address [address] [facility] [place] [address] Care Team Providers Care Production Service Manager Name Role Phone Maxim Masterson MD Primary Care Provider Encounter Details Date Type Department Care Team (Latest Contact Info) Description 07/22/2020 Travel Social History Tobacco Use Types Packs/Day Years Used Date Smoking Tobacco: Every Day Cigarettes Smokeless Tobacco: Never Alcohol Use Standard Drinks/Week Comments No 0 (1 standard drink = 0.6 oz pur e alcohol) Sex and Gender Information Value Date Recorded Sex Assigned at Not on file Gender Identity Not on file Sexual Orientation Not on file COVID-19 Exposure Response Date Recorded In the last month, have you been in contact with someone who was confirmed or suspected to have Coronavirus / COVID-19? No / Unsure 07/22/2020 9:27 AM CDT documented as of this encounter Functional Status [...] on file documented as of this encounter Visit Diagnoses Not on filedocumented in this encounter Care Teams Production Service Manager Relationship Specialty Start Date End Date Maxim Masterson MD [address] [place], [place] [id number] PCP - General 09/27/16 documented as of this encounter
--- OUTSIDE RECORDS SUMMARY | 2024-03-02 05:35 | XMS_ITS | Encounter Summary ---
Author Organization [facility] Address [address] [place] [address] Care Team Providers Care Slide Fastener Chain Assembler Name Role Phone Maxim Masterson MD Primary Care Provider [phone] Reason for Visit * Reason Comments Results Encounter Details Date Type Department Care Team (Late st Contact Info) Description 08/03/2020 2:40 PM CDT Office Visit [facility] Rheumatology [address] [place] [address], [place] [address] Ankur Osorio MD [address] [place] [address] [place] [address] Pamela irvin ([facility]) (Primary Dx) Social History Tobacco Use Types Packs/Day Years [...] AM CDT documented as of this encounter Last Filed Vital Signs Vital Sign Reading [...] Mass Index 24.51 08/03/2020 2:33 PM CDT documented in this encounter Functional Status Functional Status Response [...] No 09/04/2019 documented as of this encounter Progress Notes * Ankur Osorio MD - 08/03/2020 3:10 PM CDT (Prob #1) Arthralgias Feet with Lupus Pernio Changes/Acrocyanosis (Prob #2) History of Pseudotumor Cerebri (Labs) Recent Labs Component Name 07/22/20 1019 09/29/16 0519 09/22/16 1039 WBC 6.7 10.6* 8.1 RBC 4.78 4.48 4.94 HGB 14.2 13.2 14.7 HCT 43.5 39.5 43.0 MCV 91.0 88.2 87.0 MCHC 32.6 33.4 34.2 PLTCOUNT 263 272 284 NEUTPCT 52.7 71.3* - NEUTABS 3.5 7.5* 5.27 ESR 11; CRP <0.5 UA WNL; Recent Labs Component Name 07/22/20 1019 09/29/16 0518 09/22/16 1039 POTASSIUM 3.9 4.3 4.3 CO2 25 23 20* BUN 15 11 17 CREATININE 0.90 0.8 0.8 GLUCOSE 94 98 116* CALCIUM 9.2 9.2 9.5 ALT 17 - - ALKPHOS 55 - - AST 12 - - EGFR 85* >60 >60 CK 74; Aldolase 4.9; Vit D 52; All APLS studies negative TSH 2; T4 0.9; Abs to TPO/Tg negative RF/Ab to CCP Negative [place] and complete profile and both Abs to dsDNA all negative. Abs to Histones/Chromatin negative Scleroderma Panel negative C3 116/C4 28/CH50 >95 (Subj) Patient continues to have fatigue,mylagias, Skin lesions lower extremity much improved. No new symptoms of CTD. Patient is trying to stop smoking. No new rashes, mucosal ulcers, or systemic complaints. Rest of ROS negative. Past/Social/Family History reviewed. (Obj)BP 100/82 (BP SITE: LEFT ARM, BP POSITION: SITTING, BP CUFF SIZE: 11) Pulse 64 Temp 98.6 ??F (37 ??C) (Oral) Resp 16 Ht 5' 9 (1.753 m) Wt 166 lb (75.3 kg) SpO2 96% BMI 24.51 kg/m2 (Skin) UE/LE livedo with acrocyanosis with diffuse tanning. No skin breakdown or unhealing cuts today. Multiple tattoos. (General) Unremarkable (Extrem) No malissa synovitis. MS 5/5 throughout with no tenderness today (Assess) Lupus Pernio with no evidence underlying CTD/SLE/Myositis/RA/APLS/Thyroid Disease (Plan) Patient defers any NSAIDs at this time. Will monitor symptoms. Will call if flare. RTO in 4 months. Recheck labs then Discussed with patient. Anukr Osorio MD, FACP, FAAP, MACR Manager Photo and Pediatric Rheumatology Professor of Internal Medicine,Pediatrics, and Molecular Immunology [facility] documented in this encounter Plan of Treatment Not on file documented as of this encounter Visit Diagnoses Diagnosis Lupus pernio (HCC)- Primary Sarcoidosis documented in this encounter Care Teams Slide Fastener Chain Assembler Relationship Specialty Start Date End Date Maxim Masterson MD [address] [place] [address] PCP - General 09/27/16 documented as of this encounter
--- OUTSIDE RECORDS SUMMARY | 2024-03-02 05:35 | XMS_ITS | Clinical Summary ---
Author Organization [facility] Address [address] [facility] [place] [address] Care Team Providers Care Carrot Tier Name Role Phone Maxim Masterson MD Primary Care Provider [phone] Source Comments [facility],non-owned Affiliates and Associated Physician Practices is amultiple site organization consisting of ambulatory clinics and hospital sitesin [place], [place], [place] and [place]. This disclosure is being madepursuant to the Care Everywhere program and may not contain all information available regarding this patient. Last updated 17.[facility] Allergies Active Allergy Reactions Criticality Noted Date [...] Overview (05/21/2017): strata II @ 1.5 S/P STAR ROUTE MAIL DRIVER shunt 10/16/2016 Overview (04/24/2021): Overview: 04/24 strata @1.5 JU strata II @ 1.5 Benign intracranial hypertension 05/11/2016 Benign intracranial hypertension 05/11/2016 Family History Medical History Relation Name Comments Hypertension Father Diabetes - Type 2 Mother Relation Name Status Comments Father Maternal Aunt Other Hashimotos Mother Social History Tobacco Use Types Packs/Day Years [...] Mass Index 24.51 08/03/2020 2:33 PM CDT Plan of Treatment Health Maintenance Due Date Last Done Comments PAP SMEAR 1988 PNEUMOCOCCAL VACCINE (1 of 2 - PCV) 1994 HIV SCREENING 2003 DTAP/TDAP/TD VACCINES (1 - Tdap) 2007 HEPATITIS B VACCINE (1 of 3 - 19+ 3-dose series) 2007 DEPRESSION SCREENING 02/19/2023 COVID-19 VACCINE (1 - 2023-2 5 season) 2023 INFLUENZA VACCINE (#1) 2023 ZOSTER VACCINE (1 of 2) 2038 HEPATITIS C SCREENING Completed 07/22/2020 HIB VACCINE Aged Out No longer eligi ble based on patient's age to complete this topic HPV VACCINE Aged Out No longer eligi ble based on patient's age to complete this topic MENINGOCOCCAL VACCINE Aged Out No rodrigo lotus eligible based on patient's age to complete this topic Medical Devices Implanted Type Area Auto Rental Supervisor Device Identifier Shelf Expiration Date Model / [...] kalen Non-reac tive 07/22/2020 12:35 PM CDT [facility] Comment:Hepatitis C Antibody screen indicates [...] Osorio MD LAB - CHEMISTRY RAMILA RAMESH [facility] Organization Address City/State/ZIP Co de Phone Number [facility] [address] [place] [address] [phone] from Last 3 Months or Most Recently Relevant to Health Maintenance Care Teams Carrot Tier Relationship Specialty Start Date End Date Maxim Masterson MD [address] [place] [address] PCP - General 09/27/16
--- OUTSIDE RECORDS SUMMARY | 2024-03-02 05:35 | XMS_ITS | Encounter Summary ---
Author Organization [facility] Address [address] [facility] [place] [address] Care Team Providers Care Housing Counselor Name Role Phone Maxim Masterson MD Primary Care Provider [phone] Encounter Details Date Type Department Care Team (Latest Contact Info) Description 04/24/2021 Travel Social History Tobacco Use Types Packs/Day [...] COVID-19? No / Unsure 04/24/2021 9:54 AM PUT IN BEAT ADJUSTER documented as of this encounter Functional Status [...] on filedocumented in this encounter Care Teams Housing Counselor Relationship Specialty Start Date End Date Maxim Masterson MD [address] [place] [address] PCP - General 09/27/16 documented as of this encounter
--- OUTSIDE RECORDS SUMMARY | 2024-03-02 05:35 | XMS_ITS | Patient Health Summary ---
Author Organization [facility] Address [address] [place] [address] Care Team Providers Care Patrol Inspector Name Role Phone Maxim Masterson MD Primary Care Provider [phone] Note from [facility],non-owned Affiliates and Associated Physician Practices is amultiple site organization consisting of ambulatory clinics and hospital sitesin [place], [place], [place] and [place]. This disclosure is being madepursuant to the Care Everywhere program and may not contain all information available regarding this patient. Last updated 17.[facility] Allergies * Iodine(Swelling) * Povidone Iodine(Swelling) -Low Criticality * Shellfish Allergy(Anaphylaxis) -High Criticality Medications Be aware that medications may not be up to date on this document. Always verify current medications with the patient. 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/P PHARMACOEPIDEMIOLOGIST shunt 10/16/2016 Benign intracranial hypertension 05/11/2016 Benign intracranial hypertension [...] Mass Index 24.51 08/03/2020 2:33 PM CDT Medical Devices Implanted Type Area Screw Machine Repairer Device Identifier Shelf Expiration Date Model / Serial / Lot Shunt Shunt STRATA / / Procedures * MRI BREAST BILAT WWO CONTRAST(Performed 04/24/2021) Performed for Inversion of nipple * CREATININE - POCT INTERFACED(Performed 04/24/2021) * HISTONE ANTIBODY(Performed 07/22/2020) Performed for Livedo reticularis, History of multiple miscarriages * DNA ANTIBODY DS CRITHIDIA TITER(Performed 07/22/2020) Performed for Livedo reticularis, History of multiple miscarriages * COMPLEMENT ACTIVITY TOTAL (CH50)(Performed 07/22/2020) Performed for Livedo reticularis, History of multiple miscarriages * BETA-2 GLYCOPROTEIN 1 ANTIBODY IGG/IGM PANEL(Performed 07/22/2020) Performed for Livedo reticularis, History of multiple miscarriages * SS-A (SJOGREN'S) 52+60 ANTIBODIES(Performed 07/22/2020) Performed for Livedo reticularis, History of multiple miscarriages * CHAPINCITO BLOOD SCREEN W/REFLEX TITER(Performed 07/22/2020) Performed for Livedo reticularis, History of multiple miscarriages * MPO/WI 3 AUTOANTIBODIES PANEL(Performed 07/22/2020) Performed for Livedo reticularis, History of multiple miscarriages * SCLERODERMA COMPREHENSIVE AB PANEL(Performed 07/22/2020) Performed for Livedo reticularis, History of multiple miscarriages * SS-B (SJOGREN'S) ANTIBODY(Performed 07/22/2020) Performed for Livedo reticularis, History of multiple miscarriages * URINALYSIS REFLEX TO MICROSCOPIC NO CULTURE(Performed 07/22/2020) Performed for Livedo reticularis, History of multiple miscarriages * VITAMIN D 25-HYDROXY D2+D3(Performed 07/22/2020) Performed for Livedo reticularis, History of multiple miscarriages * T4 FREE(Performed 07/22/2020) Performed for Livedo reticularis, History of multiple miscarriages * TSH(Performed 07/22/2020) Performed for Livedo reticularis, History of multiple miscarriages * THYROGLOBULIN ANTIBODY(Performed 07/22/2020) Performed for Livedo reticularis, History of multiple miscarriages * THYROID PEROXIDASE ANTIBODY(Performed 07/22/2020) Performed for Livedo reticularis, History of multiple miscarriages * ERYTHROCYTE SEDIMENTATION RATE(Performed 07/22/2020) Performed for Livedo reticularis, History of multiple miscarriages * C-REACTIVE PROTEIN(Performed 07/22/2020) Performed for Livedo reticularis, History of multiple miscarriages * COMPREHENSIVE METABOLIC PANEL(Performed 07/22/2020) Performed for Livedo reticularis, History of multiple miscarriages * CK BLOOD(Performed 07/22/2020) Performed for Livedo reticularis, History of multiple miscarriages * CBC W AUTO DIFFERENTIAL(Performed 07/22/2020) Performed for Livedo reticularis, History of multiple miscarriages * ALDOLASE(Performed 07/22/2020) Performed for Livedo reticularis, History of multiple miscarriages * HEPATITIS C ANTIBODY(Performed 07/22/2020) Performed for Livedo reticularis, History of multiple miscarriages * HEPATITIS B SURFACE ANTIGEN W RFLX CONFIRMATION(Performed 07/22/2020) Performed for Livedo reticularis, History of multiple miscarriages * LUPUS ANTICOAGULANT PANEL(Performed 07/22/2020) Performed for Livedo reticularis, History of multiple miscarriages * BETA-2 GLYCOPROTEIN 1 ANTIBODY IGA(Performed 07/22/2020) Performed for Livedo reticularis, History of multiple miscarriages * RAMOS/PIG CASTING MACHINE OPERATOR (CASSIE) ANTIBODY IGG(Performed 07/22/2020) Performed for Livedo reticularis, History of multiple miscarriages * RAMOS (SM) ANTIBODY CASSIE(Performed 07/22/2020) Performed for Livedo reticularis, History of multiple miscarriages * RHEUMATOID FACTOR BLOOD QUANTITATIVE(Performed 07/22/2020) Performed for Livedo reticularis, History of multiple miscarriages * CYCLIC CITRULLINATED PEPTIDE(CCP) AB IGG(Performed 07/22/2020) Performed for Livedo reticularis, History of multiple miscarriages * CHROMATIN ANTIBODY(Performed 07/22/2020) Performed for Livedo reticularis, History of multiple miscarriages * DNA ANTIBODY DOUBLE STRANDED(Performed 07/22/2020) Performed for Livedo reticularis, History of multiple miscarriages * COMPLEMENT C4(Performed 07/22/2020) Performed for Livedo reticularis, History of multiple miscarriages * COMPLEMENT C3(Performed 07/22/2020) Performed for Livedo reticularis, History of multiple miscarriages * HAYDE-1 ANTIBODY(Performed 07/22/2020) Performed for Livedo reticularis, History of multiple miscarriages * CARDIOLIPIN ANTIBODY IGM(Performed 07/22/2020) Performed for Livedo reticularis, History of multiple miscarriages * CARDIOLIPIN ANTIBODY IGA(Performed 07/22/2020) Performed for Livedo reticularis, History of multiple miscarriages * CARDIOLIPIN ANTIBODY IGG(Performed 07/22/2020) Performed for Livedo reticularis, History of multiple miscarriages * XR SHUNT SERIES(Performed 09/04/2019) Performed for S/P PHARMACOEPIDEMIOLOGIST shunt * CT HEAD WO CONTRAST(Performed 05/22/2019) Performed for PHARMACOEPIDEMIOLOGIST (ventriculoperitoneal) shunt status * CT HEAD WO CONTRAST(Performed 02/01/2017) * CBC W AUTO DIFFERENTIAL(Performed 09/29/2016) * CBC W AUTO DIFFERENTIAL(Performed 09/29/2016) * BASIC METABOLIC PANEL (CALCIUM TOTAL)(Performed 09/29/2016) * DIFFERENTIAL MANUAL FLUID(Performed 09/28/2016) * CELL COUNT W DIFF CSF(Performed 09/28/2016) * PROTEIN CSF(Performed 09/28/2016) * GLUCOSE CSF(Performed 09/28/2016) * CELL COUNT CSF(Performed 09/28/2016) * CT GUIDED STEREO LOCALIZATION(Performed 09/28/2016) * XR SKULL 3VW OR LESS(Performed 09/28/2016) * CULTURE CSF+GRAM STAIN(Performed 09/28/2016) * CT GUIDED STEREO LOCALIZATION(Performed 09/28/2016) * CT GUIDED STEREO LOCALIZATION(Performed 09/27/2016) * XR SHUNT SERIES(Performed 09/27/2016) * PROTEIN CSF(Performed 09/27/2016) * GLUCOSE CSF(Performed 09/27/2016) * CULTURE CSF+GRAM STAIN(Performed 09/27/2016) * DIFFERENTIAL MANUAL FLUID(Performed 09/27/2016) * CELL COUNT CSF(Performed 09/27/2016) * CELL COUNT W DIFF CSF(Performed 09/27/2016) * CT GUIDED STEREO LOCALIZATION(Performed 09/27/2016) * TYPE + SCREEN PANEL(Performed 09/27/2016) * DIFFERENTIAL MANUAL(Performed 09/22/2016) * PTT SLH(Performed 09/22/2016) * PT-INR SLH(Performed 09/22/2016) * BASIC METABOLIC PANEL (CALCIUM TOTAL)(Performed 09/22/2016) * CBC W AUTO DIFFERENTIAL(Performed 09/22/2016) * CBC W AUTO DIFFERENTIAL(Performed 09/22/2016) * NICOTINE METABOLITE URINE(Performed 09/22/2016) Results * MRI BREAST BILAT WWO CONTRAST (04/24/2021 11:37 AM RESERVATIONS CLERK) Anatomical Region Laterality Modality Breast Bilateral Magnetic Resonan ce 04/25/2021 1:47 PM RESERVATIONS CLERK Impressions 04/26/2021 9:44 AM RESERVATIONS CLERK IMPRESSION: 1. Right breast: Multiple cysts and [...] 9:44 AM . Narrative 04/26/2021 9:44 AM RESERVATIONS CLERK SCREENING MRI OF BILATERAL BREASTS WITHOUT AND [...] CREATININE - POCT INTERFACED (04/24/2021 10:46 AM RESERVATIONS CLERK) Creatinine POCT 0.95 0.30 - 1.30 mg/dL 04/24/2021 11:40 AM RESERVATIONS CLERK [facility] eGFR 81(L) >90 mL/min/1.7 3 m2 04/24/2021 11:40 AM RESERVATIONS CLERK [facility] Blood BLOOD SPECIMEN / Unknown 04/24/2021 10:46 AM RESERVATIONS CLERK 04/24/2021 11:40 AM RESERVATIONS CLERK Provider Unknown LAB - POINT OF CARE ORDERABLES [facility] [address] [place] [id number], [facility] [phone] * HISTONE ANTIBODY (07/22/2020 10:22 AM CDT) Pathologist [facility] Histone Antibody IgG 0.1 0.0 - 0.9 Units 07/25/2020 9:16 AM CDT [facility] [employer] ([facility]) Comment: INTERPRETIVE INFORMATION: Histone Ab, IgG ??0.9 Units or less ............ Negative ??1.0 - 1.5 Units .............. Weak Positive ??1.6 - 2.5 Units .............. Moderate Positive ??2.6 Units or greater ......... Strong Positive Performed By: [facility] [address] [place] [address] Planning Aide: Vandana Otero MD Blood BLOOD SPECIMEN / Unknown 07/22/2020 10:22 AM CDT 07/22/2020 10:23 AM CDT Ankur Osorio MD LAB - CHEMISTRY RAMILA RAMESH [facility] [employer]) [address] [place] [address], [facility] * (ABNORMAL) COMPLEMENT ACTIVITY TOTAL (CH50) (07/22/2020 10:19 AM CDT) [facility] Complement Activity Total CH50 >95.00(H) 38.70 - 89.90 U/mL 07/23/2020 10:51 PM CDT [facility] ([facility]) Comment: REFERENCE INTERVAL: Complement Activity Total, (CH50) ? 38.6 U/mL or less ..........Low ? 38.7-89.9 U/mL .............Normal ? 90.0 U/mL or greater .......High Performed By: [facility] [address] [place] [address] Planning Aide: Vandana Otero MD Blood BLOOD SPECIMEN / Unknown Lab Venipuncture / Unknown 07/22/2020 10:19 AM CDT 07/22/2020 10:37 AM CDT Ankur Osorio MD LAB - CHEMISTRY RAMILA Arnold Organization Address City/State/ZIP Co de Phone Number [facility]) [address] [place] [address], [facility] * SCLERODERMA COMPREHENSIVE AB PANEL (07/22/2020 10:19 AM CDT) CHAPINCITO HEp-2 IgG <1:80 <1:80 07/28/2020 2:54 PM CDT [facility] ([facility]) CHAPINCITO Interpretive Comment See Note 07/28/2020 2:54 PM CDT [facility] ([facility]) Comment: Antinuclear antibodies by IFA negative for homogeneous, speckled, nucleolar, centromere, and nuclear dots patterns. Cytoplasmic antibodies by IFA negative for reticular/AMA, discrete/GW body-like, polar/golgi-like, rods and rings, and cytoplasmic speckled patterns. INTERPRETIVE INFORMATION: CHAPINCITO Interpretive Comment Presence of antinuclear antibodies (CHAPINCITO) is a hallmark feature of systemic autoimmune rheumatic diseases (SARD). However, CHAPINCITO lacks diagnostic specificity and is associated with a variety of diseases (cancers, autoimmune, infectious, and inflammatory conditions) ??and may also occur in healthy individuals in varying prevalence. The lack of diagnostic specificity requires confirmation of positive CHAPINCITO by more specific serologic tests. CHAPINCITO (nuclear reactivity) positive patterns reported include centromere, homogeneous, nuclear dots, nucleolar, or speckled. CHAPINCITO (cytoplasmic reactivity) positive patterns reported include reticular/AMA, discrete/GW body-like, polar/golgi-like, cytoplasmic speckled or rods and rings. All positive patterns are reported to endpoint titers (1:2560). Reported patterns may help guide differential diagnosis, although they may not be specific for individual antibodies or diseases. Mitotic staining patterns not reported. ??Negative results do not necessarily rule out SARD. SCL-70 Antibody 2 0 - 40 AU/mL 07/28/2020 2:54 PM CDT [facility] ([facility]) Comment: INTERPRETIVE INFORMATION: Scleroderma (Scl-70) (CASSIE) Ab, IgG ??29 AU/mL or Less ............. Negative ??30 - 40 AU/mL ................ Equivocal ??41 AU/mL or Greater .......... Positive The presence of Scl-70 antibodies (also referred to as topoisomerase I, felicita-I or PANCHO) is considered diagnostic for systemic sclerosis (SSc). Scl-70 antibodies alone are detected in about 20 percent of SSc patients and are associated with the diffuse form of the disease, which may include specific organ involvement and poor prognosis. Scl-70 antibodies have also been reported in a varying percentage of patients with systemic lupus erythematosus (SLE). Scl-70 (felicita-1) is a DNA binding protein and anti-DNA/DNA complexes in the sera of SLE patients may bind to felicita-I, leading to a false-positive result. The presence of Scl-70 antibody in sera may also be due to contamination of recombinant Scl-70 with DNA derived from cellular material used in immunoassays. Strong clinical correlation is recommended if both Scl-70 and dsDNA antibodies are detected. Negative results do not necessarily rule out the presence of SSc. If clinical suspicion remains, consider further testing for centromere, RNA polymerase III and U3-PIG CASTING MACHINE OPERATOR, PM/Scl, or Th/To antibodies. RNA Polymerase 3 Antibody IgG 6 0 - 19 Units 07/28/2020 2:54 PM CDT [facility] ([facility]) Comment: INTERPRETIVE INFORMATION: RNA Polymerase III Antibody, IgG ??19 Units or less ......Negative ??20 - 39 Units .........Weak Positive ??40 - 80 Units .........Moderate Positive ??81 Units or greater ...Strong Positive The presence of RNA polymerase III IgG antibody, when considered in conjunction with other laboratory and clinical findings, is an aid in the diagnosis of systemic sclerosis (SSc) with increased incidence of skin involvement and renal crisis with the diffuse cutaneous form of SSc. RNA polymerase III IgG antibody occur in about 11-23 percent of SSc patients, and typically in the absence of anti-centromere and anti-Scl-70 antibodies. A negative result indicates no detectable IgG antibodies to the dominant antigen of RNA polymerase III and does not rule out the possibility of SSc. False-positive results may also occur due to non-specific binding of immune complexes. Strong clinical correlation is recommended. If clinical suspicion remains, consider additional testing for other antibodies associated with SSc, including centromere, Scl-70, U3-PIG CASTING MACHINE OPERATOR, PM/Scl, or Th/To. Ramos/PIG CASTING MACHINE OPERATOR (CASSIE) Antibody IgG See Note 07/28/2020 2:54 PM CDT [facility] ([facility]) Comment: EFFECTIVE 03/25/2020 TEST/REFERENCE INTERVAL CHANGE Ramos/PIG CASTING MACHINE OPERATOR (CASSIE) Antibody, Ig Units Due to reagent kit performance, an alternate kit has been validated and implemented by [facility]. ??This semi-quantitative enzyme-linked immunosorbent assay (DIANA) detects IgG antibody to the Sm/PIG CASTING MACHINE OPERATOR complex. The following Reference Interval applies to this result: 19 Units or less ?Negative 20 to 39 Units ?Weak Positive 40 to 80 Units ?Moderate Positive 81 Units or greater ? Strong Positive Ramos/PIG CASTING MACHINE OPERATOR antibodies are frequently seen in patients with mixed connective tissue disease (MCTD) and are also associated with other systemic autoimmune rheumatic diseases (SARDs) such as systemic lupus erythematosus (SLE), systemic sclerosis, and myositis. Antibodies targeting the Ramos/PIG CASTING MACHINE OPERATOR antigenic complex also recognize Ramos antigens, therefore, the Ramos antibody response must be considered when interpreting these results. PM/Scl 100 Antibody IgG Negative Negative 07/28/2020 2:54 PM CDT [facility] ([facility]) Comment: INTERPRETIVE INFORMATION: PM/Scl-100 Antibody, IgG by ?Immunoblot The presence of PM/Scl-100 IgG antibody along with a positive CHAPINCITO IFA nucleolar pattern is associated with connective tissue diseases such as polymyositis (PM), dermatomyositis (DM), systemic sclerosis (SSc), and polymyositis/systemic sclerosis overlap syndrome. The clinical relevance of PM/Scl-100 IgG antibody with a negative CHAPINCITO IFA nucleolar pattern is unknown. PM/Scl-100 is the main target epitope of the PM/Scl complex, although antibodies to other targets not detected by this assay may occur. This test was developed and its performance characteristics determined by [facility]. It has not been cleared or approved by the [place] Food and Drug Administration. This test was performed in a CLIA certified laboratory and is intended for clinical purposes. Fibrillarin (U3 PIG CASTING MACHINE OPERATOR) Antibody IgG Negative Negative 07/28/2020 2:54 PM CDT [facility] ([facility]) Comment: Interpretive Information: Fibrillarin (U3 PIG CASTING MACHINE OPERATOR) Antibody, IgG The presence of fibrillarin (U3-PIG CASTING MACHINE OPERATOR) IgG antibodies in association with an CHAPINCITO IFA nucleolar pattern is suggestive of systemic sclerosis (SSc). In SSc, these antibodies are associated with distinct clinical features, such as younger age at disease onset, frequent internal organ involvement (pulmonary hypertension, myositis and renal disease). Fibrillarin antibodies are detected more frequently in patients with SSc compared to other ethnic groups. Strong correlation with CHAPINCITO IFA results is recommended. In a multi-ethnic cohort of SSc patients (n=98), U3-PIG CASTING MACHINE OPERATOR antibodies detected by immunoblot had an agreement of 98.9 percent with the gold standard immunoprecipitation (IP) assay. Approximately 71 percent (5/7) of the borderline U3-PIG CASTING MACHINE OPERATOR results with CHAPINCITO nucleolar pattern in this cohort were IP negative. This test was developed and its performance characteristics determined by [facility]. It has not been cleared or approved by the [place] Food and Drug Administration. This test was performed in a CLIA certified laboratory and is intended for clinical purposes. Performed By: [facility] [address] [place] [address] Planning Aide: Vandana Otero MD Blood BLOOD SPECIMEN / Unknown Lab Venipuncture / Unknown 07/22/2020 10:19 AM CDT 07/22/2020 11:16 AM CDT Ankur Osorio MD LAB - SEROLOGY ORDER GRECIA [facility]) [address] [place] [address] * VITAMIN D 25-HYDROXY D2+D3 (07/22/2020 10:19 AM CDT) [facility] Vitamin D, 25 Hydroxy D2 and D3 Total 51.5 30.0 - 80.0 ng/mL 07/26/2020 9:40 PM CDT [facility] ([facility]) Comment: INTERPRETIVE INFORMATION: 25-HydroxyVitamin D2 and D3, Serum 1-17 years: Deficiency: less than 20 ng/mL Optimum level: greater than or equal to 20 ng/mL* *(Lopez CL et al. Pediatrics 2008; 122: 1142-52.) 18 years and older: Deficiency: ??Less than 20 ng/mL Insufficiency: ??20-29 ng/mL Optimum Level: ??30-80 ng/mL Possible Toxicity: ??Greater than 150 ng/mL (Taina PHOENIX et al. JCEM 2011; 96:1911-30) Separate values for Vitamin D2 and D3 are reported in addition to the total. Access complete set of age- and/or gender-specific reference intervals for this test in the [facility] ([employer]). This test was developed and its performance characteristics determined by [facility]. It has not been cleared or approved by the US Food and Drug Administration. This test was performed in a CLIA certified laboratory and is intended for clinical purposes. U.S. Patent No. [id number] Performed By: [facility] [employer] [address] [id number] Planning Aide: Vandana Otero MD Vitamin D, 25 Hydroxy D2 <1.0 ng/mL 07/26/2020 9:40 PM CDT [facility]) Vitamin D, 25 Hydroxy D3 51.5 ng/mL 07/26/2020 9:40 PM CDT [facility]) Blood BLOOD SPECIMEN / Unknown Lab Venipuncture / Unknown 07/22/2020 10:19 AM CDT 07/22/2020 10:36 AM CDT Ankur Osorio MD LAB - CHEMISTRY RAMILA RAMESH [place] Organization Address City/State/ZIP Co de Phone Number [facility]) [address] * SS-A (SJOGREN'S) 52+60 ANTIBODIES (07/22/2020 10:19 AM CDT) SS-A 52 Antibody 0 0 - 40 AU/mL 07/24/2020 6:53 PM CDT [facility]) Comment: INTERPRETIVE INFORMATION: SSA-52 (Ro52) (CASSIE) Antibody, IgG ??29 AU/mL or Less ............. Negative ??30 - 40 AU/mL ................ Equivocal ??41 AU/mL or Greater .......... Positive SSA-52 (Ro52) and/or SSA-60 (Ro60) antibodies are associated with a diagnosis of Sjogren syndrome, systemic lupus erythematosus (SLE), and systemic sclerosis. SSA-52 antibody overlaps significantly with the major SSc-related antibodies. SSA-52 (Ro52) antibody occurs frequently in patients with inflammatory myopathies, often in the presence of interstitial lung disease. SS-A 60 Antibody 0 0 - 40 AU/mL 07/24/2020 6:53 PM CDT [facility] ([facility]) Comment: REFERENCE INTERVAL: SSA-60 (Ro60) (CASSIE) Antibody, IgG ??29 AU/mL or Less ............. Negative ??30 - 40 AU/mL ................ Equivocal ??41 AU/mL or Greater .......... Positive Performed By: [facility] [address] [place] [address] Planning Aide: Vandana Otero MD Blood BLOOD SPECIMEN / Unknown Lab Venipuncture / Unknown 07/22/2020 10:19 AM CDT 07/22/2020 11:16 AM CDT Ankur Osorio MD LAB - CHEMISTRY RAMILA RAMESH [place] Organization Address City/State/ZIP Co de Phone Number [facility]) [address] [place] [address], [facility] * RAMOS/PIG CASTING MACHINE OPERATOR (CASSIE) ANTIBODY IGG (07/22/2020 10:19 AM CDT) Ramos/PIG CASTING MACHINE OPERATOR (CASSIE) Antibody IgG See Note 07/27/2020 3:44 PM CDT [facility] ([facility]) Comment: EFFECTIVE 03/25/2020 TEST/REFERENCE INTERVAL CHANGE Ramos/PIG CASTING MACHINE OPERATOR (CASSIE) Antibody, Ig Units Due to reagent kit performance, an alternate kit has been validated and implemented by [facility]. ??This semi-quantitative enzyme-linked immunosorbent assay (DIANA) detects IgG antibody to the Sm/PIG CASTING MACHINE OPERATOR complex. The following Reference Interval applies to this result: 19 Units or less ?Negative 20 to 39 Units ?Weak Positive 40 to 80 Units ?Moderate Positive 81 Units or greater ? Strong Positive Ramos/PIG CASTING MACHINE OPERATOR antibodies are frequently seen in patients with mixed connective tissue disease (MCTD) and are also associated with other systemic autoimmune rheumatic diseases (SARDs) such as systemic lupus erythematosus (SLE), systemic sclerosis, and myositis. Antibodies targeting the Ramos/PIG CASTING MACHINE OPERATOR antigenic complex also recognize Ramos antigens, therefore, the Ramos antibody response must be considered when interpreting these results. Performed By: [facility] [address] [place] [address] Planning Aide: Vandana Otero MD Blood BLOOD SPECIMEN / Unknown Lab Venipuncture / Unknown 07/22/2020 10:19 AM CDT 07/22/2020 11:16 AM CDT Ankur Osorio MD LAB - CHEMISTRY RAMILA RAMESH [facility]) [address] [place] [address], [facility] * CHROMATIN ANTIBODY (07/22/2020 10:19 AM CDT) [facility] Chromatin Antibody 2 0 - 19 Units 07/25/2020 1:51 AM CDT [facility] ([facility]) Comment: INTERPRETIVE INFORMATION: Chromatin Antibody, IgG ??19 Units or less: Negative ??20 - 60 Units: Moderate Positive ??61 Units or greater: Strong Positive The presence of anti-chromatin antibodies may be useful in the diagnosis of systemic lupus erythematosus (SLE) or drug-induced lupus (DIL) and have been reported to be predictive of lupus nephritis, especially when antibody levels are high. Performed By: [facility] [address] [place] [address] Planning Aide: Vandana Otero MD Blood BLOOD SPECIMEN / Unknown Lab Venipuncture / Unknown 07/22/2020 10:19 AM CDT 07/22/2020 11:16 AM CDT Ankur Osorio MD LAB - SEROLOGY ORDER GRECIA [facility] [employer] [facility]) [address] * DNA ANTIBODY DS CRITHIDIA TITER (07/22/2020 10:19 AM CDT) dsDNA Antibody IgG <1:10 <1:10 2020 5:04 PM CDT [facility] ([facility]) Comment: INTERPRETIVE INFORMATION: Double-Stranded DNA (dsDNA) Antibody, IgG by IFA (using Crithidia luciliae) Positivity for anti-double stranded DNA (anti-dsDNA) IgG antibody is a diagnostic criterion of systemic lupus erythematosus (SLE). The presence of the anti-dsDNA IgG antibody is identified by IFA titer (Crithidia luciliae indirect fluorescent test [TAZ]). TAZ is highly specific for SLE with a sensitivity of 50-60 percent. Some patients with early or inactive SLE may be positive for anti-dsDNA IgG by DIANA but negative by TAZ. If the TAZ result is negative but the patient has a positive DIANA and clinical suspicion remains, consider antinuclear antibody (CHAPINCITO) testing by IFA. Additional information and recommendations for testing may be found at [email or web address]. Performed By: [facility] [address] [place] [address] Planning Aide: Vandana Otero MD Blood BLOOD SPECIMEN / Unknown Lab Venipuncture / Unknown 07/22/2020 10:19 AM CDT 07/22/2020 10:36 AM CDT Ankur Osorio MD LAB - SEROLOGY ORDER GRECIA [facility] [employer]) [address] * (ABNORMAL) LUPUS ANTICOAGULANT PANEL (07/22/2020 10:19 AM CDT) APTT 31.9 23.0 - 38.4 Seconds 07/23/2020 9:29 AM CDT [facility] PT 11.9(L) 12.1 - 14.8 Seconds 07/23/2020 9:29 AM [facility] INR 0.9 See Comment 07/23/2020 9:29 AM [facility] [place] Buffer 58.2 Seconds 021 9:29 AM [facility] [place] Phospholipid 50.8 Seconds 07/23/2020 9:29 AM [facility] [place] Delta 7.4 <8.0 Seconds 07/23/2020 9:29 AM [facility] Interpretation [place] Negative 07/23/2020 9:29 AM [facility] Comment:Up to 15-20% of mikhail ents with lupus anticoagulant associated with antiphospholipid antibody syndrome (APAS) will have negative [place] results. For these patients we recommend additional testing to include the Dilute Nato Viper Venom Time (DRVVT) test. Immunoassay measurements of anti-cardiolipin and anti-beta-2 glycoprotein 1 are recommended if the DRVVT, and STACLOT-LA tests are negative and there is clinical suspicion of APAS. Blood BLOOD SPECIMEN / Unknown Lab Venipuncture / Unknown 07/22/2020 10:19 AM CDT 07/22/2020 11:07 AM CDT Ankur Osorio MD LAB - HEMATOLOGY ORD ERABLES [facility] [address] [address], [facility] [phone] * CARDIOLIPIN ANTIBODY IGA (07/22/2020 10:19 AM CDT) Cardiolipin Antibody IgA <10 0 - 11 APL 07/24/2020 5:38 PM CDT [employer] ([facility]) Comment: INTERPRETIVE INFORMATION: Cardiolipin Antibodies, IgA 0-11 APL: Negative 12-19 APL: Indeterminate 20-80 APL: Low to Moderately ??Positive 81 APL or above: High Positive Performed By: [facility] [address] [place] [id number] Planning Aide: Vandana Otero MD Blood BLOOD SPECIMEN / Unknown Lab Venipuncture / Unknown 07/22/2020 10:19 AM CDT 07/22/2020 11:16 AM CDT Ankur Osorio MD LAB - SEROLOGY ORDER GRECIA Performing Organization Address City/[facility]/ZIP Co de Phone Number [facility] ([facility]) [address] * CARDIOLIPIN ANTIBODY IGM (07/22/2020 10:19 AM CDT) [facility] Cardiolipin Antibody IgM <10 0 - 12 MPL 07/24/2020 5:38 PM CDT [employer] ([facility]) Comment: INTERPRETIVE INFORMATION: Anti-Cardiolipin IgM 0-12 MPL: Negative 13-19 MPL: Indeterminate 20-80 MPL: Low to Moderately Positive 81 MPL or above: High Positive The persistent presence of IgG and/or IgM cardiolipin (CL) antibodies in moderate or high levels (greater than 40 GPL and/or greater than 40 MPL units or greater than 99th percentile) is a laboratory criterion for the diagnosis of antiphospholipid syndrome (APS). Persistence is defined as moderate or high levels of IgG and/or IgM CL antibodies detected ??in two or more specimens drawn at least 12 weeks apart (J Throm Haemost. 2006;4:295-306). Lower positive levels of IgG and/or IgM CL antibodies (above cutoff but less than 40 GPL and/or less than 40 MPL units) may occur in patients with the clinical symptoms of APS; therefore, the actual significance of these levels is undefined. Results should not be used alone for diagnosis and must be interpreted in light of APS-specific clinical manifestations and/or other criteria phospholipid antibody tests. Performed By: [facility] [address] [place] [address] Planning Aide: Vandana Otero MD Blood BLOOD SPECIMEN / Unknown Lab Venipuncture / Unknown 07/22/2020 10:19 AM CDT 07/22/2020 11:16 AM CDT Ankur Osorio MD LAB - SEROLOGY ORDER GRECIA Performing Organization Address [facility]/ZIP Co de Phone Number [employer] [employer] ([facility]) [address] * CARDIOLIPIN ANTIBODY IGG (07/22/2020 10:19 AM CDT) Cardiolipin Antibody IgG <10 0 - 14 GPL 07/24/2020 5:38 PM CDT [facility] ([facility]) Comment: INTERPRETIVE INFORMATION: Anti-Cardiolipin IgG Ab 0-14 GPL: Negative 15-19 GPL: Indeterminate 20-80 GPL: Low to Moderately Positive 81 GPL or above: High Positive The persistent presence of IgG and/or IgM cardiolipin (CL) antibodies in moderate or high levels (greater than 40 GPL and/or greater ??than 40 MPL units or greater than 99th percentile) is a laboratory criterion for the diagnosis of antiphospholipid syndrome (APS). Persistence is defined as moderate or high levels of IgG and/or IgM CL antibodies detected in two or more specimens drawn at least 12 weeks apart (J Throm Haemost. 2006;4:295-306). Lower positive levels of IgG and/or IgM CL antibodies (above cutoff but less than 40 GPL and/or less than 40 MPL units) may occur in patients with the clinical symptoms of APS; therefore, the actual significance of these levels is undefined. Results should not be used alone for diagnosis and must be interpreted in light of APS-specific clinical manifestations and/or other criteria phospholipid antibody tests. Performed By: [facility] [address] [place] [id number] Planning Aide: Vandana Otero MD Blood BLOOD SPECIMEN / Unknown Lab Venipuncture / Unknown 07/22/2020 10:19 AM CDT 07/22/2020 11:16 AM CDT Ankur Osorio MD LAB - SEROLOGY ORDER GRECIA [facility]) [address] [place] [address], [facility] * URINALYSIS REFLEX TO MICROSCOPIC NO CULTURE (07/22/2020 10:19 AM CDT) Color UA Straw Straw, Yellow 07/22/2020 11:01 AM CDT [facility] Clarity UA Clear Clear 07/22/2020 11:01 AM CDT [facility] Specific [place] UA 1.011 1.005 - 1.030 07/22/2020 11:01 AM [facility] pH UA 5.0 5.0 - 8.0 pH 07/22/2020 11:01 AM [facility] Protein UA Negative Negative 07/22/2020 11:01 AM [facility] Glucose UA Negative Negative 07/22/2020 11:01 AM [facility] Ketone UA Negative Negative 07/22/2020 11:01 AM [facility] Bilirubin UA Negative Negative 07/22/2020 11:01 AM [facility] Blood UA Negative Negative 07/22/2020 11:01 AM [facility] Nitrite UA Negative Negative 07/22/2020 11:01 AM [facility] Leukocyte Esterase Negative Negative 07/22/2020 11:01 AM [facility] Urobilinogen UA Negative Negative mg/dL 07/22/2020 11:01 AM [facility] RBC UA 3-5 None Seen, 0-2, 3-5 /HPF 07/22/2020 11:01 AM [facility] WBC UA 0-5 None Seen, 0-5 /HPF 07/22/2020 11:01 AM [facility] Squamous Epithelial Cells UA 0-2 None Seen, 0-2, 3-5 /HPF 07/22/2020 11:01 AM [facility] Mucus UA 1+ /LPF 07/22/2020 11:01 AM [facility] Urine URINE SPECIMEN OBTAINED BY CLEAN CATCH PROCEDURE / Unknown Collection / Unknown 07/22/2020 10:19 AM T 07/22/2020 10:37 AM [facility] - 07/22/2020 11:01 AM [facility] Ankur Osorio MD LAB - URINALYSIS ORD ERABLES [address] [address], [facility] [phone] * RAMOS (SM) ANTIBODY CASSIE (07/22/2020 10:19 AM T) Pathologist Nikki Ramos (CASSIE) Antibody 0 0 - 40 AU/mL 07/25/2020 8:19 AM CDT [facility] ([facility]) Comment: INTERPRETIVE INFORMATION: Ramos (CASSIE) Antibody, IgG ??29 AU/mL or Less ............. Negative ??30 - 40 AU/mL ................ Equivocal ??41 AU/mL or Greater .......... Positive Ramos antibody is highly specific (greater than 90 percent) for systemic lupus erythematosus (SLE) but only occurs in 30-35 percent of SLE cases. The presence of antibodies to Ramos has variable associations with SLE clinical manifestations. Performed By: [place] [address] Planning Aide: Vandana Otero MD Blood BLOOD SPECIMEN / Unknown Lab Venipuncture / Unknown 07/22/2020 10:19 AM CDT 07/22/2020 10:37 AM CDT Ankur Osorio MD LAB - CHEMISTRY RAMILA RAMESH [facility]) [address] [place] [address] * RHEUMATOID FACTOR BLOOD QUANTITATIVE (07/22/2020 10:19 AM CDT) Pathologist [facility] Rheumatoid Factor <15 <30 IU/mL 07/22/2020 1:47 PM CDT [facility] Rheumatoid Factor Screen Negative Negative 07/22/2020 1:47 PM CDT [facility] Blood BLOOD SPECIMEN / Unknown Lab Venipuncture / Unknown 07/22/2020 10:19 AM CDT 07/22/2020 10:37 AM CDT Ankur Osorio MD LAB - CHEMISTRY RAMILA RAMESH [address] [address], [facility] [phone] * C-REACTIVE PROTEIN (07/22/2020 10:19 AM CDT) Pathologist [facility] C-Reactive Protein <0.5 <=0.5 mg/dL 07/22/2020 12:35 PM CDT [facility] Blood BLOOD SPECIMEN / Unknown Lab Venipuncture / Unknown 07/22/2020 10:19 AM CDT 07/22/2020 10:37 AM CDT Ankur Osorio MD LAB - CHEMISTRY RAMILA RAMESH [facility] [address] [place] [address], [facility] [phone] * CHAPINCITO BLOOD SCREEN W/REFLEX TITER (07/22/2020 10:19 AM CDT) CHAPINCITO IgG None Detected None Detected 07/25/2020 2:05 AM CDT [employer] [employer] [facility] ([facility]) Comment: If suspicion of connective tissue disease is strong and CHAPINCITO EIA is negative, consider testing for CHAPINCITO by IFA ([id number]). INTERPRETIVE INFORMATION: Anti-Nuclear Antibodies (CHAPINCITO), IgG by DIANA Antinuclear Antibodies (CHAPINCITO), IgG by DIANA: CHAPINCITO specimens are screened using enzyme-linked immunosorbent assay (DIANA) methodology. All DIANA results reported as Detected are further tested by indirect fluorescent assay (IFA) using HEp-2 substrate with an IgG-specific conjugate. The CHAPINCITO DIANA screen is designed to detect antibodies against dsDNA, histones, SS-A (Ro), SS-B (La), Ramos, Ramos/PIG CASTING MACHINE OPERATOR, Scl-70, Hayde-1, centromeric proteins, other antigens extracted from the HEp-2 cell nucleus. CHAPINCITO DIANA assays have been reported to have lower sensitivities than CHAPINCITO IFA for systemic autoimmune rheumatic diseases (SARD). Negative results do not necessarily rule out SARD. Performed By: [facility] [address] [place] [address] Planning Aide: Vandana Otero MD Blood BLOOD SPECIMEN / Unknown Lab Venipuncture / Unknown 07/22/2020 10:19 AM CDT 07/22/2020 11:16 AM CDT Ankur Osorio MD LAB - CHEMISTRY RAMILA RAMESH [employer] [facility]) [address] [place] [id number] [place] [address] * THYROID PEROXIDASE ANTIBODY (07/22/2020 10:19 AM CDT) Thyroid Peroxidase TPO Antibody 0.5 0.0 - 9.0 IU/mL 07/24/2020 4:20 AM CDT [facility] ([facility]) Comment: Performed By: [facility] [employer] [address] [place] [address] Planning Aide: Vandana Otero MD Blood BLOOD SPECIMEN / Unknown Lab Venipuncture / Unknown 07/22/2020 10:19 AM CDT 07/22/2020 11:16 AM CDT Ankur Osorio MD LAB - CHEMISTRY RAMILA RAMESH Performing Organization Address [facility] de Phone Number [facility]) [address] [place] [address] * THYROGLOBULIN ANTIBODY (07/22/2020 10:19 AM CDT) [facility] Thyroglobulin Antibody <0.9 0.0 - 4.0 IU/mL 07/24/2020 2:22 AM CDT [facility] ([facility]) Comment: INTERPRETIVE INFORMATION: Thyroglobulin Antibody ? A value of 4.0 IU/mL or less indicates a negative result for thyroglobulin antibodies. The Thyroglobulin Antibody assay is being performed using the Geov[employer] MyCheck Access DxI method. Performed By: [facility] [employer] [address] [place] [address] Planning Aide: Vandana Otero MD Blood BLOOD SPECIMEN / Unknown Lab Venipuncture / Unknown 07/22/2020 10:19 AM CDT 07/22/2020 11:16 AM CDT Ankur Osorio MD LAB - CHEMISTRY RAMILA RAMESH Performing Organization Address [facility] de Phone Number [facility]) [address] [place] [address] * BETA-2 GLYCOPROTEIN 1 ANTIBODY IGA (07/22/2020 10:19 AM CDT) Pathologist [facility] Beta-2 Glycoprotein Antibody IgA 6 0 - 20 ESA 07/25/2020 2:10 AM CDT [facility] ([facility]) Comment: Performed By: [facility] [address] [place] [address] Planning Aide: Vandana Otero MD Blood BLOOD SPECIMEN / Unknown Lab Venipuncture / Unknown 07/22/2020 10:19 AM CDT 07/22/2020 11:16 AM CDT Ankur Osorio MD LAB - SEROLOGY ORDER GRECIA [facility]) [address] [place] [address], [facility] * BETA-2 GLYCOPROTEIN 1 ANTIBODY IGG/IGM PANEL (07/22/2020 10:19 AM CDT) Beta-2 Glycoprotein Antibody IgG 2 0 - 20 SGU 07/25/2020 6:08 PM CDT [facility] ([facility]) Beta-2 Glycoprotein Antibody IgM 12 0 - 20 SMU 07/25/2020 6:08 PM CDT [facility] ([facility]) Comment: INTERPRETIVE INFORMATION: I8Rpugajddytey I, IgG and IgM Antibody The persistent presence of IgG and/or IgM beta 2 glycoprotein I (B2GPI) antibodies (greater than 99th percentile) is a laboratory criterion for the diagnosis of antiphospholipid syndrome (APS). Persistence is defined as moderate or high levels of IgG and/or IgM B2GPI antibodies detected in two or more specimens drawn at least 12 weeks apart (J Throm Haemost. 2006;4:295-306). B2GPI results greater than 20 SGU (IgG) and/or SMU (IgM) are considered positive based on the cutoff values established for this test. International reference materials and consensus units for anti-B2GPI antibodies have not been established (Clin Chito Acta. 2012;413(1-2):358-60; Arthritis Rheum. 2012;64(1):1-10.). Strong clinical correlation is recommended for a diagnosis of APS. Low positive IgG and IgM B2GPI antibody levels should be interpreted in light of APS-specific clinical manifestations and/or other criteria phospholipid antibody tests. Performed By: [facility] [address] [place] [address] Planning Aide: Vandana Otero MD Blood BLOOD SPECIMEN / Unknown Lab Venipuncture / Unknown 07/22/2020 10:19 AM CDT 07/22/2020 11:16 AM CDT Ankur Osorio MD LAB - CHEMISTRY RAMILA RAMESH Performing Organization Address [facility]/ZIP Co de Phone Number [employer] [facility]) [address] [place] [address] * SS-B (SJOGREN'S) ANTIBODY (07/22/2020 10:19 AM CDT) SS-B Antibody 0 0 - 40 AU/mL 07/25/2020 8:19 AM CDT [facility] [employer] ([facility]) Comment: INTERPRETIVE INFORMATION: SSB (La) (CASSIE) Ab, IgG ??29 AU/mL or Less ............. Negative ??30 - 40 AU/mL ................ Equivocal ??41 AU/mL or Greater .......... Positive SSB (La) antibody is seen in 50-60% of Sjogren syndrome cases and is specific if it is the only CASSIE antibody present. 15-25% of patients with systemic lupus erythematosus (SLE) and 5-10% of patients with progressive systemic sclerosis (PSS) also have this antibody. Performed By: [facility] [address] [place] [address] Planning Aide: Vandana Otero MD Blood BLOOD SPECIMEN / Unknown Lab Venipuncture / Unknown 07/22/2020 10:19 AM CDT 07/22/2020 11:16 AM CDT Ankur Osorio MD LAB - CHEMISTRY RAMILA RAMESH Performing Organization Address City/[facility]/ZIP Co de Phone Number [facility]) [address] [place] [address] * DNA ANTIBODY DOUBLE STRANDED (07/22/2020 10:19 AM CDT) dsDNA Antibody 2 0 - 24 IU 07/24/2020 6:06 PM CDT [employer] ([facility]) Comment: INTERPRETIVE INFORMATION: Double-Stranded DNA (dsDNA) Ab IgG DIANA ??24 IU or less........Negative ??25-30 IU.............Borderline Positive ??30-60 IU.............Low Positive ??60-200 IU............Positive ??201 IU or greater....Strong Positive Positivity for anti-double stranded DNA (anti-dsDNA) IgG antibody is a diagnostic criterion of systemic lupus erythematosus (SLE). Specimens are initially screened by enzyme-linked immunosorbent assay (DIANA). All DIANA results reported as detected (positive) are confirmed by a highly specific IFA titer (Crithidia luciliae indirect fluorescent test [TAZ]). Some patients with early or inactive SLE may be positive for anti-dsDNA IgG by DIANA but negative by TAZ. If the patient is negative by TAZ but positive by DIANA and clinical suspicion remains, consider antinuclear antibody (CHAPINCITO) testing by IFA. Additional information and recommendations for testing may be found at [email or web address] [email or web address]. Performed By: [facility] [address] [place] [address] Planning Aide: Vandana Otero MD Blood BLOOD SPECIMEN / Unknown Lab Venipuncture / Unknown 07/22/2020 10:19 AM CDT 07/22/2020 11:16 AM CDT Ankur Osorio MD LAB - HEMATOLOGY ORD ERABLES [facility] [employer] [facility]) [address] [place] [address], [facility] * HAYDE-1 ANTIBODY (07/22/2020 10:19 AM CDT) [facility] Hayde-1 Antibody IgG 1 0 - 40 AU/mL 07/24/2020 6:53 PM CDT [facility] [employer] ([facility]) Comment: INTERPRETIVE INFORMATION: ??Hayde-1 Antibody, IgG ??29 AU/mL or less.........Negative ??30-40 AU/mL..............Equivocal ??41 AU/mL or greater......Positive Presence of Hayde-1 (antihistidyl transfer RNA [t-RNA] synthetase) antibody is associated with polymyositis and may also be seen in patients with dermatomyositis. Hayde-1 antibody is associated with pulmonary involvement (interstitial lung disease), Raynaud phenomenon, arthritis, and aircraft ordnance systems mechanic's hands (implicated in antisynthetase syndrome). Performed By: [facility] [address] [place] [address] Planning Aide: Vandana Otero MD Blood BLOOD SPECIMEN / Unknown Lab Venipuncture / Unknown 07/22/2020 10:19 AM CDT 07/22/2020 11:16 AM CDT Ankur Osorio MD LAB - CHEMISTRY RAMILA RAMESH Performing Organization Address [facility] de Phone Number [facility] [employer] [facility]) [address] [place] [address] * ALDOLASE (07/22/2020 10:19 AM CDT) [facility] Aldolase 4.9 1.5 - 8.1 U/L 07/23/2020 7:04 PM CDT [facility] [employer] ([facility]) Comment: REFERENCE INTERVAL: Aldolase Access complete set of age- and/or gender-specific reference intervals for this test in the [employer] [facility] Test Directory ([facility] [facility]). Performed By: [facility] [address] [place] [address] Planning Aide: Vandana Otero MD Blood BLOOD SPECIMEN / Unknown Lab Venipuncture / Unknown 07/22/2020 10:19 AM CDT 07/22/2020 11:16 AM CDT Ankur Osorio MD LAB - CHEMISTRY RAMILA RAMESH Performing Organization Address [facility]/ZIP Co de Phone Number [facility] [employer] [facility]) [address] [place] [address] * MPO/WI 3 AUTOANTIBODIES PANEL (07/22/2020 10:19 AM CDT) [facility] Serine Proteinase 3 IgG 3 0 - 19 AU/mL 07/25/2020 6:20 AM CDT [facility] ([facility]) Comment: INTERPRETIVE INFORMATION: Serine Proteinase 3, IgG ??19 AU/mL or Less ........ Negative ??20-25 AU/mL ............. Equivocal ??26 AU/mL or Greater ..... Positive Approximately 85% of patients with a C-ANCA pattern by IFA have antibodies specific for PR3. Performed By: [place] [address] Planning Aide: Vandana Otero MD Myeloperoxidase Antibody 0 0 - 19 AU/mL 07/25/2020 6:20 AM CDT [facility] ([facility]) Comment: INTERPRETIVE INFORMATION: Myeloperoxidase Abs, IgG ??19 AU/mL or Less ......... Negative ??20-25 AU/mL .............. Equivocal ??26 AU/mL or Greater ...... Positive Approximately 90% of patients with a P-ANCA pattern by IFA have antibodies specific for MPO. Blood BLOOD SPECIMEN / Unknown Lab Venipuncture / Unknown 07/22/2020 10:19 AM CDT 07/22/2020 11:16 AM CDT Ankur Osorio MD LAB - CHEMISTRY RAMILA RAMESH Performing Organization Address [facility] Co de Phone Number [facility] [employer] [facility]) [address] [place] [address] * CYCLIC CITRULLINATED PEPTIDE(CCP) AB IGG (07/22/2020 10:19 AM CDT) [facility] CCP Antibody IgG <0.5 <5.0 U/mL 07/22/2020 2:13 PM CDT [facility] Blood BLOOD SPECIMEN / Unknown Lab Venipuncture / Unknown 07/22/2020 10:19 AM CDT 07/22/2020 10:37 AM CDT Ankur Osorio MD LAB - CHEMISTRY RAMILA RAMESH Performing Organization Address City/[facility]/ZIP Co de Phone Number [facility] [address] [place] [address], [facility] [phone] * ERYTHROCYTE SEDIMENTATION RATE (07/22/2020 10:19 AM CDT) [facility] Erythrocyte Sedimentation Rate Otto[place]ren 11 0 - 20 MM/HR 07/22/2020 12:34 PM [facility] Blood BLOOD SPECIMEN / Unknown Lab Venipuncture / Unknown 07/22/2020 10:19 AM CDT 07/22/2020 10:30 AM CDT Ankur Osorio MD LAB - HEMATOLOGY ORD ERABLES [address] [address], [facility] [phone] * (ABNORMAL) CBC WITH DIFFERENTIAL (07/22/2020 10:19 AM CDT) Only the most recent of5 resultswithin the time period is included. [facility] WBC 6.7 3.5 - 10.5 10? 3 /uL 07/22/2020 10:50 AM [facility] RBC 4.78 3.80 - 5.20 10? 6 /uL 07/22/2020 10:50 AM [facility] Hemoglobin 14.2 12.0 - 15.6 g/dL 07/22/2020 10:50 AM [facility] Hematocrit 43.5 35.0 - 45.0 % 07/22/2020 10:50 AM [facility] MCV 91.0 80.7 - 98.3 fL 07/22/2020 10:50 AM [facility] MCH 29.7 26.7 - 34.0 pg 07/22/2020 10:50 AM [facility] MCHC 32.6 30.8 - 35.9 g/dL 07/22/2020 10:50 AM [facility] Platelet Count 263 150 - 400 10? 3 /uL 07/22/2020 10:50 AM [facility] RDW-SD 39.6 36.0 - 50.0 fL 07/22/2020 10:50 AM [facility] RDW-CV 11.9 11.2 - 14.8 % 07/22/2020 10:50 AM [facility] MPV 9.5 9.4 - 12.9 fL 07/22/2020 10:50 AM [facility] nRBC Absolute 0.00 0 10? 3 /uL 07/22/2020 10:50 AM [facility] nRBC Auto 0.0 0 /100 WBC 07/22/2020 10:50 AM [facility] Neutrophils % 52.7 35.0 - 70.0 % 07/22/2020 10:50 AM [facility] Lymphocytes % 41.1 20.0 - 43.0 % 07/22/2020 10:50 AM [facility] Monocytes % 4.3(L) 5.0 - 13.0 % 07/22/2020 10:50 AM [facility] Eosinophils % 1.2 0.0 - 6.0 % 07/22/2020 10:50 AM [facility] Basophil % 0.6 0.0 - 2.0 % 07/22/2020 10:50 AM [facility] Neutrophils Absolute 3.5 1.6 - 7.0 10? 3 /uL 07/22/2020 10:50 AM [facility] Lymphocyte Absolute 2.8 1.1 - 3.9 10? 3 /uL 07/22/2020 10:50 AM [facility] Monocytes Absolute 0.29 0.26 - 1.07 10? 3 /uL 07/22/2020 10:50 AM [facility] Eosinophils Absolute 0.08 0.00 - 0.47 10? 3 /uL 07/22/2020 10:50 AM [facility] Basophils Absolute 0.04 0.00 - 0.08 10? 3 /uL 07/22/2020 10:50 AM [facility] Immature Granulocytes % 0.1 0.0 - 1.0 % 07/22/2020 10:50 AM [facility] Immature Granulocytes Absolute 0.01 07/22/2020 10:50 AM [facility] Blood BLOOD SPECIMEN / Unknown Lab Venipuncture / Unknown 07/22/2020 10:19 AM CDT 07/22/2020 10:30 AM CDT Ankur Osorio MD LAB - HEMATOLOGY ORD ERABLES [facility] [address] [place] [phone], [facility] [phone] * COMPLEMENT C4 (07/22/2020 10:19 AM CDT) Complement C4 28 15 - 57 mg/dL 07/22/2020 12:35 PM T [facility] Blood BLOOD SPECIMEN / Unknown Lab Venipuncture / Unknown 07/22/2020 10:19 AM CDT 07/22/2020 10:37 AM CDT Ankur Osorio MD LAB - SEROLOGY ORDER GRCEIA Performing Organization Address City/[facility]/ZIP Co de Phone Number [address] [address], [facility] [phone] * (ABNORMAL) COMPREHENSIVE METABOLIC PANEL (07/22/2020 10:19 AM CDT) BUN 15 7 - 26 mg/dL 07/22/2020 12:35 PM [facility] Creatinine 0.90 0.56 - 0.96 mg/dL 07/22/2020 12:35 PM [facility] Sodium 145 136 - 145 mmol/L 07/22/2020 12:35 PM [facility] Potassium 3.9 3.5 - 4.5 mmol/L 07/22/2020 12:35 PM [facility] Chloride 112(H) 98 - 107 mmol/L 07/22/2020 12:35 PM [facility] CO2 25 22 - 29 mmol/L 07/22/2020 12:35 PM [facility] Glucose 94 70 - 115 mg/dL 07/22/2020 12:35 PM [facility] Calcium 9.2 8.4 - 10.2 mg/dL 07/22/2020 12:35 PM [facility] Protein Total 7.1 6.0 - 8.3 g/dL 07/22/2020 12:35 PM [facility] Albumin 4.2 3.4 - 5.0 g/dL 07/22/2020 12:35 PM [facility] Bilirubin Total 0.3 0.2 - 1.2 mg/dL 07/22/2020 12:35 PM [facility] Alkaline Phosphatase 55 40 - 150 U/L 07/22/2020 12:35 PM [facility] ALT 17 5 - 55 U/L 07/22/2020 12:35 PM [facility] AST 12 5 - 34 U/L 07/22/2020 12:35 PM [facility] Anion Gap 12 8 - 18 07/22/2020 12:35 PM [facility] BUN/Creatinine Ratio 17 7 - 23 07/22/2020 12:35 PM [facility] Osmolality Calculated 301(H) 270 - 300 mOsm/kg 07/22/2020 12:35 PM [facility] Albumin/Globulin Ratio 1.4 1.1 - 2.3 07/22/2020 12:35 PM [facility] eGFR by CKD-EPI 85(L) >=90 mL/min/1.7 3 m2 07/22/2020 12:35 PM [facility] Blood BLOOD SPECIMEN / Unknown Lab Venipuncture / Unknown 07/22/2020 10:19 AM CDT 07/22/2020 10:37 AM T Ankur Osorio MD LAB - CHEMISTRY RAMILA RAMESH [place] Organization Address City/State/ZIP Co de Phone Number [facility] [address] [place] [phone], [facility] [phone] * HEPATITIS B SURFACE ANTIGEN W RFLX CONFIRMATION (07/22/2020 10:19 AM CDT) Hepatitis B Virus Surface Antigen Non-reacti ve Non-reacti ve 07/22/2020 12:35 PM [facility] Blood BLOOD SPECIMEN / Unknown Lab Venipuncture / Unknown 07/22/2020 10:19 AM CDT 07/22/2020 10:37 AM CDT Ankur Osorio MD LAB - CHEMISTRY RAMILA RAMESH Performing Organization Address City/[facility]/ZIP Co de Phone Number [address] [address], [place] [phone] * CK BLOOD (07/22/2020 10:19 AM CDT) CK Total 74 30 - 200 U/L 07/22/2020 12:35 PM CDT [facility] Blood BLOOD SPECIMEN / Unknown Lab Venipuncture / Unknown 07/22/2020 10:19 AM CDT 07/22/2020 10:37 AM CDT Ankur Osorio MD LAB - CHEMISTRY RAMILA RAMESH Performing Organization Address [facility]/ZIP Co de Phone Number [address] [address], [place] [phone] * TSH (07/22/2020 10:19 AM CDT) TSH 2.013 0.350 - 4.940 uIU/mL 07/22/2020 12:35 PM CDT [facility] Blood BLOOD SPECIMEN / Unknown Lab Venipuncture / Unknown 07/22/2020 10:19 AM CDT 07/22/2020 10:37 AM CDT Ankur Osorio MD LAB - CHEMISTRY RAMILA RAMESH Performing Organization Address City/[facility]/ZIP Co de Phone Number [address] [address], [place] [phone] * T4 FREE (07/22/2020 10:19 AM CDT) T4 Free 0.9 0.7 - 1.5 ng/dL 07/22/2020 12:35 PM CDT [facility] Blood BLOOD SPECIMEN / Unknown Lab Venipuncture / Unknown 07/22/2020 10:19 AM CDT 07/22/2020 10:37 AM CDT Ankur Osorio MD LAB - CHEMISTRY RAMILA RAMESH Performing Organization Address [facility]/ZIP Co de Phone Number [address] [address], [facility] [phone] * HEPATITIS C ANTIBODY (07/22/2020 10:19 AM CDT) Pathologist [facility] Hepatitis C Antibody Non-react kalen Non-reac tive 07/22/2020 12:35 PM CDT [facility] Comment:Hepatitis C Antibody screen indicates no [...] Osorio MD LAB - CHEMISTRY RAMILA RAMESH Performing Organization Address [facility]/ZIP Co de Phone Number [address] [address], [facility] [phone] * COMPLEMENT C3 (07/22/2020 10:19 AM CDT) [facility] Complement C3 116 82 - 193 mg/dL 07/22/2020 12:35 PM CDT [facility] Blood BLOOD SPECIMEN / Unknown Lab Venipuncture / Unknown 07/22/2020 10:19 AM CDT 07/22/2020 10:37 AM CDT Ankur Osorio MD LAB - CHEMISTRY RAMILA RAMESH Performing Organization Address City/[facility]/ZIP Co de Phone Number [address] [address], [place] [phone] * XR SHUNT SERIES (09/04/2019 1:34 PM CDT) Only the most recent of2 resultswithin the time period is included. Anatomical Region Laterality Modality Abdomen, Pelvis Radiographic Mariangel ging 09/04/2019 4:07 PM CDT Impressions 09/05/2019 9:02 AM CDT IMPRESSION: Intact right frontal approach ventriculoperitoneal shunt. Dictated by Farshad Benavidez MD (residential program coordinator). Dr. MOLINA Aguillon have personally reviewed and interpreted this examination/study. This report was electronically signed by MOLINA ARREOLA ??on 09/05/2019 9:02 AM . Narrative 09/05/2019 9:02 AM CDT EXAM: XR SHUNT SERIES DATE: 09/04/2019 1:35 PM HISTORY: Z98.2: S/P PHARMACOEPIDEMIOLOGIST shunt FINDINGS: A right frontal approach ventriculoperitoneal shunt has its intracranial tip terminating near the right frontal horn of the lateral ventricle. The shunt exits through a right frontal august hole and courses through the right neck, right chest, right abdomen, and is coiled within the pelvis. There is no mass effect surrounding its termination. No shunt discontinuity is seen. A radiolucent valve is again noted at the proximal portion just external to the calvarium. Multiple surgical clips are seen in the pelvis. Procedure Note Michelle Molina Jessica, - 09/05/2019 EXAM: XR SHUNT SERIES DATE: 09/04/2019 1:35 PM HISTORY: Z98.2: S/P PHARMACOEPIDEMIOLOGIST shunt FINDINGS: A right frontal approach ventriculoperitoneal shunt has its intracranial tip terminating near the right frontal horn of the lateral ventricle.The shunt exits through a right frontal august hole and courses through the right neck, right chest, right abdomen, and is coiled within the pelvis. There is no mass effect surrounding its termination. No shunt discontinuity is seen. A radiolucent valve is again noted at theproximal portion just external to the calvarium. Multiple surgical clips are seen in the pelvis. IMPRESSION: Intact right frontal approach ventriculoperitoneal shunt. Dictated by Farshad Benavidez MD (residential program coordinator). Dr. MOLINA Aguillon have personally reviewed and interpreted this examination/study. This report was electronically signed by MOLINA ARREOLA on 09/05/2019 9:02 AM . Maite Rose [facility] DIAGNOSTIC IMAGING O RDERABLES * CT HEAD WO CONTRAST (05/22/2019 9:32 AM CDT) Only the most recent of2 resultswithin the time period is included. Anatomical Region Laterality Modality Head Computed Tomogra phy 05/22/2019 10:5 5 AM CDT Impressions 05/22/2019 2:52 PM CDT IMPRESSION: 1.No acute intracranial hemorrhage, mass effect or midline shift. 2.Unchanged position of right frontal approach ventriculostomy catheter with decompressed ventricular system. Report dictated by Ralf Good MD (residential program coordinator). This report was approved ??by Ralf Good ?? on 05/22/2019 2:52 PM . I, Dr. MATHEUS BARAHONA have personally reviewed and interpreted this examination/study. This report was electronically signed by MATHEUS ABRAHONA ??on 05/22/2019 2:52 PM . Narrative 05/22/2019 2:[address] HEAD WO CONTRAST EXAMINATION: 1.Computed tomography (CT) of the head without contrast DATE: 05/22/2019 9:33 AM HISTORY: status of PHARMACOEPIDEMIOLOGIST shunt TECHNIQUE: CT of the head was performed without contrast according to standard protocol. COMPARISON: CT head without contrast 02/01/2017 FINDINGS: Right frontal approach ventriculostomy catheter tip terminates in the third ventricle and unchanged position. No acute intra- or extra-axial fluid collections are identified. The right lateral ventricle is decompressed. The left lateral ventricle is of normal size, shape, and morphology. The basilar cisterns are patent. No mass effect or midline shift is seen. The obregon-white matter differentiation is normal. Periventricular white matter hypoattenuation is indicative of chronic small vessel ischemic disease. There is vascular calcification of the carotid siphons. No acute calvarial fracture is identified. There is a suspected partial empty sella. The orbits appear normal. The paranasal sinuses are clear. The mastoid air cells are clear. No soft tissue abnormality is identified. Procedure Note Matheus Barahona MD - 05/22/2019 CT HEAD WO CONTRAST EXAMINATION: 1.Computed tomography (CT) of the head without contrast DATE: 05/22/2019 9:33 AM HISTORY: status of PHARMACOEPIDEMIOLOGIST shunt TECHNIQUE: CT of the head was performed without contrast according to standard protocol. COMPARISON: CT head without contrast 02/01/2017 FINDINGS: Right frontal approach ventriculostomy catheter tip terminates in the third ventricle and unchanged position. No acute intra- or extra-axial fluid collections are identified. The right lateral ventricle is decompressed. The left lateral ventricle is of normal size, shape, and morphology. The basilar cisterns are patent. No mass effect or midline shift is seen. The obregon-white matter differentiation is normal. Periventricular white matter hypoattenuation is indicative of chronic small vessel ischemic disease. There is vascular calcification of the carotid siphons. No acute calvarial fracture is identified. There is a suspected partial empty sella. The orbits appear normal. The paranasal sinuses are clear. The mastoid air cells are clear. No soft tissue abnormality is identified. IMPRESSION: 1.No acute intracranial hemorrhage, mass effect or midline shift. 2.Unchanged position of right frontal approach ventriculostomy catheter with decompressed ventricular system. Report dictated by Ralf Good MD (residential program coordinator). This report was approved by Ralf Good on 05/22/2019 2:52 PM . I, Dr. MATHEUS BARAHONA have personally reviewed and interpreted this examination/study. This report was electronically signed by MATHEUS BARAHONA on05/22/2019 2:52 PM . Arnoldo Robertson MD CT ORDERABLES * BASIC METABOLIC PANEL (CALCIUM TOTAL) (09/29/2016 5:18 AM CDT) Only the most recent of2 resultswithin the time period is included. BUN 11 7 - 26 mg/dL [facility] Creatinine 0.8 0.6 - 1.2 mg/dL [facility] Sodium 140 136 - 145 mmol/L [facility] Potassium 4.3 3.5 - 4.5 mmol/L [facility] Chloride 105 98 - 107 mmol/L [facility] CO2 23 22 - 29 mmol/L [facility] Glucose 98 70 - 115 mg/dL [facility] Calcium 9.2 8.4 - 10.2 mg/dL [facility] Anion Gap 16 8 - 18 [facility] BUN/Creatinine Ratio 14 7 - 23 [facility] Osmolality Calculated 289 270 - 300 mOsm/kg [facility] eGFR >60 >60 mL/min/1.7 3 m2 [facility] Blood specimen (specimen) BLOOD SPECIMEN / Unknown 09/29/2016 5:18 AM CDT 09/29/2016 5:21 AM CDT Arnoldo Robertson MD LAB - CHEMISTRY ORD ERABLES Performing Organization Address [facility] [place] [address], [facility] [phone] * (ABNORMAL) CELL COUNT CSF (09/28/2016 7:19 PM CDT) Only the most recent of2 resultswithin the time period is included. Color Fluid [place](A) Colorless, Straw [facility] Clarity Fluid Clear Clear [facility] Volume Fluid 2.0 mL [facility] WBC Fluid 4 0 - 5 /uL [facility] RBC Fluid 1,000(H) 0 /uL [facility] Xanthochromia Fluid Negative Negative [facility] Differential Manual Differential to follow. [facility] Spinal fluid (substance) CEREBROSPINAL FLUID SPECIMEN / Unknown 09/28/2016 7:19 PM CDT 09/28/2016 7:19 PM CDT Arnoldo Robertson MD LAB - BODY FLUID OR DERABLES Performing Organization Address [facility] [place] [address], [facility] [phone] * (ABNORMAL) DIFFERENTIAL MANUAL FLUID (09/28/2016 7:19 PM CDT) Only the most recent of2 resultswithin the time period is included. Segs % Fluid 29(H) 0 - 6 % [facility] Lymphocytes % Fluid 71 40 - 80 % [facility] Spinal fluid (substance) CEREBROSPINAL FLUID SPECIMEN / Unknown 09/28/2016 7:19 PM CDT 09/28/2016 7:19 PM CDT Narrative [facility] - 09/28/2016 9:16 PM CDT No reference range established for other differential results. Arnoldo Robertson MD LAB - BODY FLUID OR DERABLES Performing Organization Address [facility]/ZIP Co de Phone Number [facility] [address] [phone] * CELL COUNT W DIFF CSF (09/28/2016 7:19 PM CDT) Only the most recent of2 resultswithin the time period is included. Spinal fluid (substance) CEREBROSPINAL FLUID SPECIMEN / Unknown 09/28/2016 7:19 PM CD[address]arrative [facility] - 09/28/2016 9:16 PM CDT The following orders were created for panel order SPINAL FLUID CELL COUNT. Procedure ? Abnormality ? Status ? --------- ? ------ ? SPINAL FLUID CELL COUNT[[id number]] ? Abnormal ?Final result ? MANUAL DIFFERENTIAL FLUID[[id number]] ? Abnormal ?Final result ? Please view results for these tests on the individual orders. Arnoldo Robertson MD LAB - BODY FLUID OR DERABLES Performing Organization Address [facility] de Phone Number [facility] [address] * (ABNORMAL) PROTEIN CSF (09/28/2016 7:19 PM CDT) Only the most recent of2 resultswithin the time period is included. Protein CSF 8(L) 15 - 45 mg/dL [facility] Spinal fluid (substance) CEREBROSPINAL FLUID SPECIMEN / Unknown 09/28/2016 7:19 PM CDT 09/28/2016 7:19 PM CDT Arnoldo Robertson MD LAB - BODY FLUID OR DERABLES Performing Organization Address City/[facility]/ZIP Co de Phone Number [address] [phone] * GLUCOSE CSF (09/28/2016 7:19 PM CDT) Only the most recent of2 resultswithin the time period is included. Glucose CSF 68 40 - 70 mg/dL [facility] Spinal fluid (substance) CEREBROSPINAL FLUID SPECIMEN / Unknown 09/28/2016 7:19 PM CDT 09/28/2016 7:19 PM CDT Arnoldo Robertson MD LAB - BODY FLUID OR DERABLES Performing Organization Address [facility] Co de Phone Number [address] [phone] * CT GUIDED STEREO LOCALIZATION (09/28/2016 6:40 PM CDT) Only the most recent of4 resultswithin the time period is included. Anatomical Region Laterality Modality Breast Other Impressions 09/29/2016 10:21 AM CDT IMPRESSION: 1. Interval revision of anterior right frontal approach ventricular catheter which terminates near midline at the level of the foramen of Monro. Small volume pneumocephalus is present without intracranial hemorrhage or ventriculomegaly. This report was approved ??by Lupillo Black M.D. ?? on 09/29/2016 8:59 AM . I, Dr. SHYAM TUCKER M.D. have personally reviewed and interpreted this examination/study. This report was electronically signed by SHYAM TUCKER M.D. ??on 09/29/2016 10:21 AM . Narrative 09/29/2016 10:21 AM CDT EXAMINATION: Computed tomography (CT) of the head without contrast HISTORY: Status post shunt revision TECHNIQUE: CT of the head was performed without contrast according to stereotactic protocol. FINDINGS: Comparison is made with a study from 09/28/2016. No acute intra- or extra-axial fluid collections are identified. A right anterior frontal approach ventricular catheter now terminates near midline at the level of the foramen of Monro. The ventricles are of normal size, shape, and morphology. Small volume of pneumocephalus is present along the anterior frontal lobe, likely sequela catheter placement. The basilar cisterns are patent. No mass effect or midline shift is seen. The obregon-white matter differentiation is normal. Other than mild mucosal thickening in the left maxillary, the visualized portions of the orbits, paranasal sinuses, and mastoids appear normal. No acute fracture is identified. Right frontal scalp soft tissue swelling and gas is present with skin ghada at the site of catheter insertion. Procedure Note Shyam Tucker MD - 05/18/2017 EXAMINATION: Computed tomography (CT) of the head without contrast HISTORY: Status post shunt revision TECHNIQUE: CT of the head was performed without contrast according tostereotactic protocol. FINDINGS: Comparison is made with a study from 09/28/2016. No acute intra- or extra-axial fluid collections are identified. A rightanterior frontal approach ventricular catheter now terminates near midlineat the level of the foramen of Monro. The ventricles are of normal size,shape, and morphology. Small volume of pneumocephalus is present along the anterior frontal lobe,likely sequela catheter placement. The basilar cisterns are patent. Nom[place] effect or midline shift is seen. The obregon-white matterdifferentiation is normal. Other than mild mucosal thickening in the left maxillary, the visualized portions of the orbits,paranasal sinuses, and mastoids appear normal. No acute fracture isidentified. Right frontal scalp soft tissue swelling and gas is presentwith skin ghada at the site of catheter insertion. IMPRESSION IMPRESSION: 1. Interval revision of anterior right frontal approach ventricularcatheter which terminates near midline at the level of the foramen ofMonro. Small volume pneumocephalus is present without intracranialhemorrhage or ventriculomegaly. This report was approved by Lupillo Black M.D. on 09/29/2016 8:59 AM. I, Dr. SHYAM TUCKER M.D. have personally reviewed and interpreted thisexamination/study. This report was electronically signed by SHYAM TUCKER M.D. on 09/29/201610:21 AM . Arnoldo Robertson MD CT ORDERABLES * XR SKULL 3VW OR LESS (09/28/2016 6:00 PM CDT) Anatomical Region Laterality Modality Head Other Impressions 09/29/2016 11:47 AM CDT IMPRESSION: A ventriculoperitoneal shunt enters the skull via a right frontoparietal august hole and has been advanced from the comparison shunt series with the tip more inferior, crossing the midline and curving back toward the midline. Overlying skin ghada are present in the scalp. The extracranial catheter courses along the right side of the neck inferiorly. The calvarium is intact outside of the operative region. The visible sinuses are unremarkable. No air-fluid level is seen. Endotracheal tube and temperature probe are noted with the temperature probe turning off-image with the tip terminating in the posterior nasopharynx. Electronic records show removal of endotracheal tube and temperature probe at this time. This report was dictated by Ryan Vila M.D. (residential program coordinator). This report was approved ??by Ryan Vila ?? on 09/29/2016 10:50 AM . I, Dr. HERMINIO JENNINGS M.D. have personally reviewed and interpreted this examination/study. This report was electronically signed by HERMINIO JENNINGS M.D. ??on 09/29/2016 11:47 AM . Narrative 09/29/2016 11:47 AM CDT EXAMINATION: Skull, AP and lateral views HISTORY: Other. COMPARISON: CT of the brain from 09/28/2016 at 6:28 PM. Shunt series from 09/27/2016. FINDINGS/ Procedure Note Herminio Jennings MD - 05/18/2017 EXAMINATION: Skull, AP and lateral views HISTORY: Other. COMPARISON: CT of the brain from 09/28/2016 at 6:28 PM. Shunt series from09/27/2016. FINDINGS/ IMPRESSION IMPRESSION: A ventriculoperitoneal shunt enters the skull via a right frontoparietalburr hole and has been advanced from the comparison shunt series with thetip more inferior, crossing the midline and curving back toward themidline. Overlying skin ghada are present in the scalp. The extracranial catheter courses along the rightside of the neck inferiorly. The calvarium is intact outside of theoperative region. The visible sinuses are unremarkable. No air-fluid levelis seen. Endotracheal tube and temperature probe are noted with the temperature probe turning off-imagewith the tip terminating in the posterior nasopharynx. Electronic recordsshow removal of endotracheal tube and temperature probe at this time. This report was dictated by Ryan Vila M.D. (residential program coordinator). This report was approved by Ryan Vila on 09/29/2016 10:50 AM . I, Dr. HERMINIO JENNINGS M.D. have personally reviewed and interpreted thisexamination/study. This report was electronically signed by HERMINIO JENNINGS M.D. on09/29/2016 11:47 AM . Arnoldo Robertson MD DIAGNOSTIC IMAGING ORDERABLES * CULTURE CSF+GRAM STAIN (09/28/2016 5:55 PM CDT) Only the most recent of2 resultswithin the time period is included. Culture CSF No Growth at 1 week [facility] Gram Stain No Organism Seen [facility] Spinal fluid (substance) CEREBROSPINAL FLUID SPECIMEN / Unknown 09/28/2016 5:55 PM CDT 09/28/2016 7:18 PM CDT Narrative [facility] - 10/05/2016 3:09 PM CDT Specimen Type->Cerebrospinal Fluid Gram Stains are routinely screened for the presence of Polymorphonuclear Cells. Gram Stains are routinely screened for the presence of Polymorphonuclear Cells. Arnoldo Robertson MD LAB - MICROBIOLOGY ORDERABLES [address] [phone] * TYPE + SCREEN PANEL (09/27/2016 8:05 AM CDT) Typem A NEG [facility] Antibody Screen NEG [facility] Blood specimen (specimen) 09/27/2016 8:05 AM CDT 09/27/2016 8:10 AM CDT Arnoldo Robertson MD LAB - BLOOD BANK OR DERABLES Performing Organization Address [facility] Co de Phone Number [facility] [address] [place] [address] * PTT SLU (09/22/2016 10:39 AM CDT) APTT 28.2 23.0 - 38.4 Seconds [facility] Comment:Suggested therapeuti c range for full dose I.V. heparin therapy for venous thromboembolism is 66.0-91.0 seconds. Blood specimen (specimen) BLOOD SPECIMEN / Unknown 09/22/2016 10:39 AM CDT 09/22/2016 10:56 AM CDT Narrative [facility] - 09/22/2016 11:56 AM CDT Is patient on Heparin, Argatroban or Dabigatran?->N Arnoldo Robertson MD LAB - COAGULATION O EDWAR Performing Organization Address [facility] Co de Phone Number [address] [phone] * PT-INR U (09/22/2016 10:39 AM CDT) PT 12.4 12.1 - 14.8 Seconds [facility] INR 0.9 See Comment [facility] Comment: Suggested therapeutic range for low-intensity coumadin therapy for venous thromboembolism prophylaxis is an INR of 2.0-3.0. ??For high risk patients (Mitral Valve Prosthesis, Atrial Fibrillation, history of TIA/stroke), suggested prophylactic therapeutic range is an INR of 2.5-3.5. Blood specimen (specimen) BLOOD SPECIMEN / Unknown 09/22/2016 10:39 AM CDT 09/22/2016 10:56 AM CDT Narrative [facility] - 09/22/2016 11:55 AM CDT Is patient on Heparin, Argatroban or Dabigatran?->N Arnoldo Robertson MD LAB - COAGULATION O EDWAR Performing Organization Address [facility] Co de Phone Number [address] [phone] * (ABNORMAL) DIFFERENTIAL MANUAL (09/22/2016 10:39 AM CDT) WBC (corrected for NRBC) 8.1 10? 3 /uL [facility] Total Cell Count 100 [facility] Neutrophils Absolute Manual 5.27 1.60 - 7.00 10? 3 /uL [facility] Comment:(BANDS+SEGS) x WBC = NEUT # (ANC) Lymphocyte Absolute Manual 2.27 0.80 - 2.90 10? 3 /uL [facility] Monocytes Absolute Manual 0.32 0.14 - 0.66 10? 3 /uL [facility] Eosinophils Absolute Manual 0.08 0.00 - 0.22 10? 3 /uL [facility] Basophil Absolute Manual 0.08(H) 0.00 - 0.06 10? 3 /uL [facility] Band % Manual 1 0 - 10 % [facility] Neutrophil % Manual 64(H) 30 - 60 % [facility] Lymphocyte % Manual 28 20 - 45 % [facility] Monocytes % Manual 4 2 - 10 % [facility] Eosinophils % Manual 1 1 - 6 % [facility] Basophils % Manual 1 0 - 3 % [facility] Atypical Lymphocyte % Manual 1(H) 0 % [facility] Platelet Estimate Adequate Adequate [facility] RBC Morphology Normal [facility] Blood specimen (specimen) BLOOD SPECIMEN / Unknown 09/22/2016 10:39 AM CDT 09/22/2016 10:56 AM CDT Arnoldo Robertson MD LAB - HEMATOLOGY OR DERABLES Performing Organization Address City/State/[facility] Co de Phone Number [facility] [address] [place] [address] * NICOTINE METABOLITE URINE (09/22/2016 10:32 AM CDT) Cotinine Negative Cutoff=30 0 ng/mL [facility] ([employer]) Comment Drug Screen Comment [facility] (BEAKER) Comment: This assay provides a preliminary unconfirmed analytical test result that may be suitable for the clinical management of patients in certain situations. ??For workplace drug testing programs, preliminary positive findings should always be confirmed by an alternative method. Some bbbj-oes-qajygxy medications, as well as adulterants, may cause inaccurate results. Screen Only testing does not meet the [employer] Forensic Urine Drug Testing Program requirements as a forensic urine drug test for workplace testing. All clients must ensure that their testing program conforms to applicable state and federal laws and employment agreements. Urine specimen (specimen) URINE SPECIMEN OBTAINED BY CLEAN CATCH PROCEDURE / Unknown 09/22/2016 10:32 AM CDT 09/22/2016 10:57 AM CDT Narrative [facility] (FRAN) - 09/23/2016 7:06 PM CDT Performed at: ??01 - [facility] [address] [place], [place] ??[id number] Last Turner: Ralf Ely MD, Phone: ??[phone] Performed at: ??02 - [facility] [address] ??[id number] Last Turner: Isak Silva PhD, Phone: ??[phone] Arnoldo Robertson MD LAB - URINE STUD DRIVER RY ORDERABLES [facility] (FRAN) Care Teams Patrol Inspector Relationship Specialty Start Date End Date Maxim Masterson MD [address] [place] [id number] PCP - General 09/27/16
--- OUTSIDE RECORDS SUMMARY | 2024-03-02 05:36 | XMS_ITS | Encounter Summary ---
Author Organization [facility] Address [facility]6 [facility] [place] [address] [place] [address] Care Team Providers Care Boiler Room Operator Name Role Phone Unavailable Primary Care Provider Unavailabl e Encounter Details Date Type Department Care Team (Late st Contact Info) Description 02/21/2008 Abstract [facility] [address] [address] Jakob Gauthier MD [address] [place] [id number] Social History Tobacco Use Types Packs/Day Years Used Date Smoking Tobacco: Never Assessed Comments Unknown Sex and Gender Information Value Date Recorded Sex Assigned at Not on file 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
--- OUTSIDE RECORDS SUMMARY | 2024-03-02 05:36 | XMS_ITS | Encounter Summary ---
Author Organization [facility] Address [facility]6 [facility] [place] [address] [place] [address] Care Team Providers Care Pig Machine Operator Helper Name Role Phone Unavailable Primary Care Provider Unavailabl e Encounter Details Date Type Department Care Team (Late st Contact Info) Description 08/12/[address] 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
--- OUTSIDE RECORDS SUMMARY | 2024-03-02 05:36 | XMS_ITS | Encounter Summary ---
Author Organization [facility] Address [facility]6 [facility]. 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
--- OUTSIDE RECORDS SUMMARY | 2024-03-02 05:36 | XMS_ITS | Encounter Summary ---
Author Organization [facility] Address [facility]6 [facility] [place] [address] [place] [address] Care Team Providers Care Epitaxial Reactor Technician Name Role Phone Unavailable Primary Care Provider Unavailabl e Encounter Details Date Type Department Care Team (Late st Contact Info) Description 03/07/[address] 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
--- OUTSIDE RECORDS SUMMARY | 2024-03-02 05:36 | XMS_ITS | Encounter Summary ---
Author Organization [facility] Address [facility]6 [facility] [place] [address] [place] [address] Care Team Providers Care Call Center Professional Name Role Phone Unavailable Primary Care Provider Unavailabl e Encounter Details Date Type Department Care Team (Late st Contact Info) Description 06/04/[address] 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
--- OUTSIDE RECORDS SUMMARY | 2024-03-02 05:36 | XMS_ITS | Encounter Summary ---
Author Organization [facility] Address [facility]6 [facility] 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
--- OUTSIDE RECORDS SUMMARY | 2024-03-02 05:36 | XMS_ITS | Encounter Summary ---
Author Organization [facility] Address [facility]6 [facility] 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
--- OUTSIDE RECORDS SUMMARY | 2024-03-02 05:36 | XMS_ITS | Encounter Summary ---
Author Organization [facility] Address [facility] [place] [address] [place] [address] Care Team Providers Care Orthotic Practitioner Name Role Phone Unavailable Primary Care Provider Unavailabl e Encounter Details Date Type Department Care Team (Late st Contact Info) Description 06/01/[address] 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
--- OUTSIDE RECORDS SUMMARY | 2024-03-02 05:36 | XMS_ITS | Encounter Summary ---
Author Organization [facility] Address [address] [place] [address]. 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
--- OUTSIDE RECORDS SUMMARY | 2024-03-02 05:36 | XMS_ITS | Encounter Summary ---
Author Organization [facility] Address [facility]6 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
--- OUTSIDE RECORDS SUMMARY | 2024-03-02 05:36 | XMS_ITS | Encounter Summary ---
Author Organization [facility] Address [facility]6 [place] [address] [place] [address] Care Team Providers Care Fashion Journalist Name Role Phone Unavailable Primary Care Provider Unavailabl e Encounter Details Date Type Department Care Team (Late st Contact Info) Description 09/08/[address] 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
--- OUTSIDE RECORDS SUMMARY | 2024-03-02 05:36 | XMS_ITS | Encounter Summary ---
Author Organization [facility] Address [facility]6 [place] [address] [place] [address] Care Team Providers Care Aerodynamics Teacher Name Role Phone Unavailable Primary Care Provider Unavailabl e Encounter Details Date Type Department Care Team (Late st Contact Info) Description 03/31/[address] 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
--- OUTSIDE RECORDS SUMMARY | 2024-03-02 05:36 | XMS_ITS | Encounter Summary ---
Author Organization [facility] Address [address] [place] [address] Care Team Providers Care Video Recorder Mechanic Name Role Phone Maxim Masterson MD Primary Care Provider [phone] Encounter Details Date Type Department Care Team (Latest Contact Info) Description 07/22/2020 9:30 AM CDT - 07/22/2020 11:59 PM CDT Hospital Encounter [facility] LAB OP DRAW STATION [address] [place] [address] [phone] Discharge Disposition: Home or Self Care Social [...] Procedure Name Priority Date/Time Associated Diagnosis Comments HISTONE ANTIBODY Today 07/22/2020 10:2 2 AM CDT Livedo reticularis History of multiple miscarriages COMPLEMENT ACTIVITY TOTAL (CH50) Routine 07/22/2020 10:19 AM CDT Livedo reticularis History of multiple miscarriages SCLERODERMA COMPREHENSIVE AB PANEL Routine 07/22/2020 10:19 AM CDT Livedo reticularis History of multiple miscarriages VITAMIN D 25-HYDROXY D2+D3 Routine 07/22/2020 10:19 AM CDT Livedo reticularis History of multiple miscarriages SS-A (SJOGREN'S) 52+60 ANTIBODIES Routine 07/22/2020 10:19 AM CDT Livedo reticularis History of multiple miscarriages RAMOS/MECHANICAL EQUIPMENT SALES ENGINEER (CASSIE) ANTIBODY IGG Routine 07/22/2020 10:19 AM CDT Livedo reticularis History of multiple miscarriages CHROMATIN ANTIBODY Routine 07/22/2020 10 :19 AM CDT Livedo reticularis History of multiple miscarriages DNA ANTIBODY DS CRITHIDIA TITER Routine 07/22/2020 10:19 AM CDT Livedo reticularis History of multiple miscarriages LUPUS ANTICOAGULANT PANEL Routine 07/22/2020 10:19 AM CDT Livedo reticularis History of multiple miscarriages CARDIOLIPIN ANTIBODY IGA Routine 07/22/2020 10:19 AM CDT Livedo reticularis History of multiple miscarriages CARDIOLIPIN ANTIBODY IGM Routine 07/22/2020 10:19 AM CDT Livedo reticularis History of multiple miscarriages CARDIOLIPIN ANTIBODY IGG Routine 07/22/2020 10:19 AM CDT Livedo reticularis History of multiple miscarriages URINALYSIS REFLEX TO MICROSCOPIC NO CULTURE Routine 07/22/2020 10:19 AM CDT Livedo reticularis History of multiple miscarriages RAMOS (SM) ANTIBODY CASSIE Routine 07/22/2020 10:19 AM CDT Livedo reticularis History of multiple miscarriages RHEUMATOID FACTOR BLOOD QUANTITATIVE Routine 07/22/2020 10:19 AM CDT Livedo reticularis History of multiple miscarriages C-REACTIVE PROTEIN Routine 07/22/2020 10 :19 AM CDT Livedo reticularis History of multiple miscarriages CHAPINCITO BLOOD SCREEN W/REFLEX TITER Routine 07/22/2020 10:19 AM CDT Livedo reticularis History of multiple miscarriages THYROID PEROXIDASE ANTIBODY Routine 07/22/2020 10:19 AM CDT Livedo reticularis History of multiple miscarriages THYROGLOBULIN ANTIBODY Routine 10:19 AM CDT Livedo reticularis History of multiple miscarriages BETA-2 GLYCOPROTEIN 1 ANTIBODY IGA Routine 07/22/2020 10:19 AM CDT Livedo reticularis History of multiple miscarriages BETA-2 GLYCOPROTEIN 1 ANTIBODY IGG/IGM PANEL Routine 07/22/2020 10:19 AM CDT Livedo reticularis History of multiple miscarriages SS-B (SJOGREN'S) ANTIBODY Routine 07/22/2020 10:19 AM CDT Livedo reticularis History of multiple miscarriages DNA ANTIBODY DOUBLE STRANDED Routine 07/22/2020 10:19 AM CDT Livedo reticularis History of multiple miscarriages HAYDE-1 ANTIBODY Routine 07/22/2020 10:19 AM CDT Livedo reticularis History of multiple miscarriages ALDOLASE Routine 07/22/2020 10:19 AM CDT Livedo reticularis History of multiple miscarriages MPO/NH 3 AUTOANTIBODIES PANEL Routine 07/22/2020 10:19 AM CDT Livedo reticularis History of multiple miscarriages CYCLIC CITRULLINATED PEPTIDE(CCP) AB IGG Routine 07/22/2020 10:19 AM CDT Livedo reticularis History of multiple miscarriages ERYTHROCYTE SEDIMENTATION RATE Routine 07/22/2020 10:19 AM CDT Livedo reticularis History of multiple miscarriages CBC W AUTO DIFFERENTIAL Routine 07/22/2020 10:19 AM CDT Livedo reticularis History of multiple miscarriages COMPLEMENT C4 Routine 07/22/2020 10:19 AM CDT Livedo reticularis History of multiple miscarriages COMPREHENSIVE METABOLIC PANEL Routine 07/22/2020 10:19 AM CDT Livedo reticularis History of multiple miscarriages HEPATITIS B SURFACE ANTIGEN W RFLX CONFIRMATION Routine 07/22/2020 10:19 AM CDT Livedo reticularis History of multiple miscarriages CK BLOOD Routine 07/22/2020 10:19 AM CDT Livedo reticularis History of multiple miscarriages TSH Routine 07/22/2020 10:19 AM CDT Livedo reticularis History of multiple miscarriages T4 FREE Routine 07/22/2020 10:19 AM CDT Livedo reticularis History of multiple miscarriages HEPATITIS C ANTIBODY Routine 07/22/2020 10:19 AM CDT Livedo reticularis History of multiple miscarriages COMPLEMENT C3 Routine 07/22/2020 10:19 AM CDT Livedo reticularis History of multiple miscarriages documented in this encounter Results * HISTONE ANTIBODY (07/22/2020 10:22 AM CDT) Pathologist [facility] Histone Antibody IgG 0.1 0.0 - 0.9 Units 07/25/2020 9:16 AM CDT [facility] [employer] ([facility]) Comment: INTERPRETIVE INFORMATION: Histone Ab, IgG ??0.9 Units or less ............ Negative ??1.0 - 1.5 Units .............. Weak Positive ??1.6 - 2.5 Units .............. Moderate Positive ??2.6 Units or greater ......... Strong Positive Performed By: [facility] [address] [place] [address] Real Estate Accountant: Vandana Otero MD Blood BLOOD SPECIMEN / Unknown 07/22/2020 10:22 AM CDT 07/22/2020 10:23 AM CDT Ankur Osorio MD LAB - CHEMISTRY RAMILA RAMESH [facility] [employer] [facility]) [address] [place] [address], [facility] * CHAPINCITO BLOOD SCREEN W/REFLEX TITER (07/22/2020 10:19 AM CDT) [facility] CHAPINCITO IgG None Detected None Detected 07/25/2020 2:05 AM CDT [facility] [employer] ([facility]) Comment: If suspicion of connective tissue disease is strong and CHAPINCITO EIA is negative, consider testing for CHAPINCITO by IFA ([id number]). INTERPRETIVE INFORMATION: Anti-Nuclear Antibodies (CHAPINCITO), IgG by DIANA Antinuclear Antibodies (CHAPINCITO), IgG by DIANA: CHAPINCITO specimens are screened using enzyme-linked immunosorbent assay (DIANA) methodology. All DIANA results reported as Detected are further tested by indirect fluorescent assay (IFA) using HEp-2 substrate with an IgG-specific conjugate. The CHAPINCITO DIANA screen is designed to detect antibodies against dsDNA, histones, SS-A (Ro), SS-B (La), Ramos, Ramos/MECHANICAL EQUIPMENT SALES ENGINEER, Scl-70, Hayde-1, centromeric proteins, other antigens extracted from the HEp-2 cell nucleus. CHAPINCITO DIANA assays have been reported to have lower sensitivities than CHAPINCITO IFA for systemic autoimmune rheumatic diseases (SARD). Negative results do not necessarily rule out SARD. Performed By: [facility] [address] [place] [address] Real Estate Accountant: Vandana Otero MD Blood BLOOD SPECIMEN / Unknown Lab Venipuncture / Unknown 07/22/2020 10:19 AM CDT 07/22/2020 11:16 AM CDT Ankur Osorio MD LAB - CHEMISTRY ORDJudy RAMESH [facility] [employer] [facility]) [address] [place] [address] * MPO/NH 3 AUTOANTIBODIES PANEL (07/22/2020 10:19 AM CDT) Pathologist [facility] Serine Proteinase 3 IgG 3 0 - 19 AU/mL 07/25/2020 6:20 AM CDT [facility] [employer] ([facility]) Comment: INTERPRETIVE INFORMATION: Serine Proteinase 3, IgG ??19 AU/mL or Less ........ Negative ??20-25 AU/mL ............. Equivocal ??26 AU/mL or Greater ..... Positive Approximately 85% of patients with a C-ANCA pattern by IFA have antibodies specific for PR3. Performed By: [facility] [address] [place] [address] Real Estate Accountant: Vandana Otero MD Myeloperoxidase Antibody 0 0 - 19 AU/mL 07/25/2020 6:20 AM CDT [facility] [employer] ([facility]) Comment: INTERPRETIVE INFORMATION: Myeloperoxidase Abs, IgG ??19 AU/mL or Less ......... Negative ??20-25 AU/mL .............. Equivocal ??26 AU/mL or Greater ...... Positive Approximately 90% of patients with a P-ANCA pattern by IFA have antibodies specific for MPO. Blood BLOOD SPECIMEN / Unknown Lab Venipuncture / Unknown 07/22/2020 10:19 AM CDT 07/22/2020 11:16 AM CDT Ankur Osorio MD LAB - CHEMISTRY RAMILA RAMESH [facility]) [address] [place] [phone], [facility] * SCLERODERMA COMPREHENSIVE AB PANEL (07/22/2020 10:19 AM CDT) CHAPINCITO HEp-2 IgG <1:80 <1:80 07/28/2020 2:54 PM CDT [facility] ([facility]) CHAPINCITO Interpretive Comment See Note 07/28/2020 2:54 PM CDT [facility] ([facility]) Comment: Antinuclear antibodies by IFA negative for [...] - 40 AU/mL 07/28/2020 2:54 PM CDT [facility] ([facility]) Comment: INTERPRETIVE INFORMATION: Scleroderma (Scl-70) (CASSIE) Ab, [...] testing for centromere, RNA polymerase III and U3-MECHANICAL EQUIPMENT SALES ENGINEER, PM/Scl, or Th/To antibodies. RNA Polymerase 3 Antibody IgG 6 0 - 19 Units 07/28/2020 2:54 PM [facility] [employer] ([facility]) Comment: INTERPRETIVE INFORMATION: RNA Polymerase III Antibody, [...] antibodies associated with SSc, including centromere, Scl-70, U3-MECHANICAL EQUIPMENT SALES ENGINEER, PM/Scl, or Th/To. Ramos/MECHANICAL EQUIPMENT SALES ENGINEER (CASSIE) Antibody IgG See Note 07/28/2020 2:54 PM CDT [facility] ([facility]) Comment: EFFECTIVE 03/25/2020 TEST/REFERENCE INTERVAL CHANGE Ramos/MECHANICAL EQUIPMENT SALES ENGINEER (CASSIE) Antibody, Ig Units Due to reagent kit performance, an alternate kit has been validated and implemented by [facility]. ??This semi-quantitative enzyme-linked immunosorbent assay (DIANA) detects IgG antibody to the Sm/MECHANICAL EQUIPMENT SALES ENGINEER complex. The following Reference Interval applies to this result: 19 Units or less ?Negative 20 to 39 Units ?Weak Positive 40 to 80 Units ?Moderate Positive 81 Units or greater ? Strong Positive Ramos/MECHANICAL EQUIPMENT SALES ENGINEER antibodies are frequently seen in patients with mixed connective tissue disease (MCTD) and are also associated with other systemic autoimmune rheumatic diseases (SARDs) such as systemic lupus erythematosus (SLE), systemic sclerosis, and myositis. Antibodies targeting the Ramos/MECHANICAL EQUIPMENT SALES ENGINEER antigenic complex also recognize Ramos antigens, therefore, the Ramos antibody response must be considered when interpreting these results. PM/Scl 100 Antibody IgG Negative Negative 07/28/2020 2:54 PM CDT [facility] ([facility]) Comment: INTERPRETIVE INFORMATION: PM/Scl-100 Antibody, IgG by [...] developed and its performance characteristics determined by [facility] [employer]. It has not been cleared or approved by the US Food and Drug Administration. This test was performed in a CLIA certified laboratory and is intended for clinical purposes. Fibrillarin (U3 MECHANICAL EQUIPMENT SALES ENGINEER) Antibody IgG Negative Negative 07/28/2020 2:54 PM CDT [facility] ([facility]) Comment: Interpretive Information: Fibrillarin (U3 MECHANICAL EQUIPMENT SALES ENGINEER) Antibody, IgG The presence of fibrillarin (U3-MECHANICAL EQUIPMENT SALES ENGINEER) IgG antibodies in association with an CHAPINCITO [...] a multi-ethnic cohort of SSc patients (n=98), U3-MECHANICAL EQUIPMENT SALES ENGINEER antibodies detected by immunoblot had an agreement of 98.9 percent with the gold standard immunoprecipitation (IP) assay. Approximately 71 percent (5/7) of the borderline U3-MECHANICAL EQUIPMENT SALES ENGINEER results with CHAPINCITO nucleolar pattern in this cohort were IP negative. This test was developed and its performance characteristics determined by [facility]. It has not been cleared or approved by the US Food and Drug Administration. This test was performed in a CLIA certified laboratory and is intended for clinical purposes. Performed By: [facility] [address] [place] [address] Real Estate Accountant: Vandana Otero MD Blood BLOOD SPECIMEN / Unknown Lab Venipuncture / Unknown 07/22/2020 10:19 AM CDT 07/22/2020 11:16 AM CDT Ankur Osorio MD LAB - SEROLOGY ORDER GRECIA [facility] [employer] [facility]) [address] [place] [address], [facility] * SS-B (SJOGREN'S) ANTIBODY (07/22/2020 10:19 AM CDT) SS-B Antibody 0 0 - 40 AU/mL 07/25/2020 8:19 AM CDT [facility] [employer] ([facility]) Comment: INTERPRETIVE INFORMATION: SSB (La) (CASSIE) Ab, [...] (PSS) also have this antibody. Performed By: [facility] [employer] [address] [place] [address] Real Estate Accountant: Vandana Otero MD Blood BLOOD SPECIMEN / Unknown Lab Venipuncture / Unknown 07/22/2020 10:19 AM CDT 07/22/2020 11:16 AM CDT Ankur Osorio MD LAB - CHEMISTRY ORDE GADIEL [facility] ([facility]) [address] [place] [address], [facility] * URINALYSIS REFLEX TO MICROSCOPIC NO CULTURE (07/22/2020 10:19 AM CDT) Color UA Straw Straw, Yellow 07/22/2020 11:01 AM [facility] Clarity UA Clear Clear 07/22/2020 11:01 AM [facility] Specific [place] UA 1.011 1.005 - 1.030 07/22/2020 11:01 AM [facility] pH UA 5.0 5.0 - 8.0 pH 07/22/2020 11:01 AM [facility] Protein UA Negative Negative 07/22/2020 11:01 AM [facility] Glucose UA Negative Negative 07/22/2020 11:01 AM [facility] Ketone UA Negative Negative 07/22/2020 11:01 AM [facility] Bilirubin UA Negative Negative 07/22/2020 11:01 AM [facility] Blood UA Negative Negative 07/22/2020 11:01 AM [facility] Nitrite UA Negative Negative 07/22/2020 11:01 AM [facility] Leukocyte Esterase Negative Negative 07/22/2020 11:01 AM [facility] Urobilinogen UA Negative Negative mg/dL 07/22/2020 11:01 AM [facility] RBC UA 3-5 None Seen, 0-2, 3-5 /HPF 07/22/2020 11:01 AM CDT [facility] WBC UA 0-5 None Seen, 0-5 /HPF 07/22/2020 11:01 AM CDT [facility] Squamous Epithelial Cells UA 0-2 None Seen, 0-2, 3-5 /HPF 07/22/2020 11:01 AM CDT [facility] Mucus UA 1+ /LPF 07/22/2020 11:01 AM CDT [facility] Urine URINE SPECIMEN OBTAINED BY CLEAN CATCH PROCEDURE / Unknown Collection / Unknown 07/22/2020 10:19 AM CDT 07/22/2020 10:37 AM CDT Narrative [facility] - 07/22/2020 11:01 AM CDT Ankur Osorio MD LAB - URINALYSIS ORD ERABLES [facility] [address] [place] [address], [facility] [phone] * VITAMIN D 25-HYDROXY D2+D3 (07/22/2020 10:19 AM CDT) Vitamin D, 25 Hydroxy D2 and D3 Total 51.5 30.0 - 80.0 ng/mL 07/26/2020 9:40 PM CDT [facility] ([facility]) Comment: INTERPRETIVE INFORMATION: 25-HydroxyVitamin D2 and D3, Serum 1-17 years: Deficiency: less than 20 ng/mL Optimum level: greater than or equal to 20 ng/mL* *(Lopez CL et al. Pediatrics 2008; 122: 1142-52.) 18 years and older: Deficiency: ??Less than 20 ng/mL Insufficiency: ??20-29 ng/mL Optimum Level: ??30-80 ng/mL Possible Toxicity: ??Greater than 150 ng/mL (Taina MF et al. JCEM 2011; 96:1911-30) Separate values for Vitamin D2 and D3 are reported in addition to the total. Access complete set of age- and/or gender-specific reference intervals for this test in the [employer] Laboratory Test Directory ([employer]). This test was developed and its performance characteristics determined by [facility]. It has not been cleared or approved by the US Food and Drug Administration. This test was performed in a CLIA certified laboratory and is intended for clinical purposes. U.S. Patent No. [id number] Performed By: [facility] [employer] [address] [place] [id number] Real Estate Accountant: Vandana Otero MD Vitamin D, 25 Hydroxy D2 <1.0 ng/mL 07/26/2020 9:40 PM CDT [facility] Vitamin D, 25 Hydroxy D3 51.5 ng/mL 07/26/2020 9:40 PM CDT [facility] Blood BLOOD SPECIMEN / Unknown Lab Venipuncture / Unknown 07/22/2020 10:19 AM CDT 07/22/2020 10:36 AM CDT Ankur Osorio MD LAB - CHEMISTRY RAMILA RAMESH Performing Organization Address City/[facility]/ZIP Co de Phone Number [facility] [address] [place] [id number] * T4 FREE (07/22/2020 10:19 AM CDT) T4 Free 0.9 0.7 - 1.5 ng/dL 07/22/2020 12:35 PM CDT [facility] Blood BLOOD SPECIMEN / Unknown Lab Venipuncture / Unknown 07/22/2020 10:19 AM CDT 07/22/2020 10:37 AM CDT Ankur Osorio MD LAB - CHEMISTRY RAMILA RAMESH [facility] [address] [place] [id number], [facility] [phone] * TSH (07/22/2020 10:19 AM CDT) TSH 2.013 0.350 - 4.940 uIU/mL 07/22/2020 12:35 PM CDT [facility] Blood BLOOD SPECIMEN / Unknown Lab Venipuncture / Unknown 07/22/2020 10:19 AM CDT 07/22/2020 10:37 AM CDT Ankur Osorio MD LAB - CHEMISTRY RAMILA RAMESH Performing Organization Address City/[facility]/ZIP Co de Phone Number [facility] [address] [place] [id number], [facility] [phone] * THYROGLOBULIN ANTIBODY (07/22/2020 10:19 AM CDT) Thyroglobulin Antibody <0.9 0.0 - 4.0 IU/mL 07/24/2020 2:22 AM CDT [facility] [employer] ([facility]) Comment: INTERPRETIVE INFORMATION: Thyroglobulin Antibody ? A value of 4.0 IU/mL or less indicates a negative result for thyroglobulin antibodies. The Thyroglobulin Antibody assay is being performed using the [employer] DxI method. Performed By: [facility] [address] [place] [address] Real Estate Accountant: Vandana Otero MD Blood BLOOD SPECIMEN / Unknown Lab Venipuncture / Unknown 07/22/2020 10:19 AM CDT 07/22/2020 11:16 AM CDT Ankur Osorio MD LAB - CHEMISTRY RAMILA RAMESH Performing Organization Address [facility] de Phone Number [facility]) [address] * THYROID PEROXIDASE ANTIBODY (07/22/2020 10:19 AM CDT) Thyroid Peroxidase TPO Antibody 0.5 0.0 - 9.0 IU/mL 07/24/2020 4:20 AM CDT [facility] ([facility]) Comment: Performed By: [facility] [address] [place] [address] Real Estate Accountant: Vandana Otero MD Blood BLOOD SPECIMEN / Unknown Lab Venipuncture / Unknown 07/22/2020 10:19 AM CDT 07/22/2020 11:16 AM CDT Ankur Osorio MD LAB - CHEMISTRY RAMILA RAMESH Performing Organization Address City/[facility] Co de Phone Number [facility] [employer] ([facility]) [address] [place] [address], [facility] * ERYTHROCYTE SEDIMENTATION RATE (07/22/2020 10:19 AM CDT) Pathologist [facility] Erythrocyte Sedimentation Rate Westergren 11 0 - 20 MM/HR 07/22/2020 12:34 PM CDT [facility] Blood BLOOD SPECIMEN / Unknown Lab Venipuncture / Unknown 07/22/2020 10:19 AM CDT 07/22/2020 10:30 AM CDT Ankur Osorio MD LAB - HEMATOLOGY ORD ERABLES [address] [address], [facility] [phone] * C-REACTIVE PROTEIN (07/22/2020 10:19 AM CDT) [facility] C-Reactive Protein <0.5 <=0.5 mg/dL 07/22/2020 12:35 PM CDT [facility] Blood BLOOD SPECIMEN / Unknown Lab Venipuncture / Unknown 07/22/2020 10:19 AM CDT 07/22/2020 10:37 AM CDT Ankur Osorio MD LAB - CHEMISTRY ORDE RABLES [address] [address], [facility] [phone] * (ABNORMAL) COMPREHENSIVE METABOLIC PANEL (07/22/2020 10:19 AM CDT) [facility] BUN 15 7 - 26 mg/dL 07/22/2020 12:35 PM CDT [facility] Creatinine 0.90 0.56 - 0.96 mg/dL 07/22/2020 12:35 PM CDT [facility] Sodium 145 136 - 145 mmol/L 07/22/2020 12:35 PM CDT [facility] Potassium 3.9 3.5 - 4.5 mmol/L 07/22/2020 12:35 PM CDT [facility] Chloride 112(H) 98 - 107 mmol/L 07/22/2020 12:35 PM [facility] CO2 25 22 - 29 mmol/L 07/22/2020 12:35 PM [facility] Glucose 94 70 - 115 mg/dL 07/22/2020 12:35 PM [facility] Calcium 9.2 8.4 - 10.2 mg/dL 07/22/2020 12:35 PM [facility] Protein Total 7.1 6.0 - 8.3 g/dL 07/22/2020 12:35 PM [facility] Albumin 4.2 3.4 - 5.0 g/dL 07/22/2020 12:35 PM [facility] Bilirubin Total 0.3 0.2 - 1.2 mg/dL 07/22/2020 12:35 PM [facility] Alkaline Phosphatase 55 40 - 150 U/L 07/22/2020 12:35 PM [facility] ALT 17 5 - 55 U/L 07/22/2020 12:35 PM [facility] AST 12 5 - 34 U/L 07/22/2020 12:35 PM [facility] Anion Gap 12 8 - 18 07/22/2020 12:35 PM [facility] BUN/Creatinine Ratio 17 7 - 23 07/22/2020 12:35 PM [facility] Osmolality Calculated 301(H) 270 - 300 mOsm/kg 07/22/2020 12:35 PM [facility] Albumin/Globulin Ratio 1.4 1.1 - 2.3 07/22/2020 12:35 PM [facility] eGFR by CKD-EPI 85(L) >=90 mL/min/1.7 3 m2 07/22/2020 12:35 PM [facility] Blood BLOOD SPECIMEN / Unknown Lab Venipuncture / Unknown 07/22/2020 10:19 AM CDT 07/22/2020 10:37 AM [facility] Ankur Osorio MD LAB - CHEMISTRY RAMILA RAMESH [facility] Organization Address City/State/ZIP Co de Phone Number [facility] [address] [place] [address], [facility] [phone] * CK BLOOD (07/22/2020 10:19 AM CDT) [facility] CK Total 74 30 - 200 U/L 07/22/2020 12:35 PM [facility] Blood BLOOD SPECIMEN / Unknown Lab Venipuncture / Unknown 07/22/2020 10:19 AM CDT 07/22/2020 10:37 AM CDT Ankur Osorio MD LAB - CHEMISTRY RAMILA RAMESH [facility] [address] [place] [address], [facility] [phone] * (ABNORMAL) CBC WITH DIFFERENTIAL (07/22/2020 10:19 AM CDT) [facility] WBC 6.7 3.5 - 10.5 10? 3 /uL 07/22/2020 10:50 AM [facility] RBC 4.78 3.80 - 5.20 10? 6 /uL 07/22/2020 10:50 AM [facility] Hemoglobin 14.2 12.0 - 15.6 g/dL 07/22/2020 10:50 AM [facility] Hematocrit 43.5 35.0 - 45.0 % 07/22/2020 10:50 AM [facility] MCV 91.0 80.7 - 98.3 fL 07/22/2020 10:50 AM [facility] MCH 29.7 26.7 - 34.0 pg 07/22/2020 10:50 AM [facility] MCHC 32.6 30.8 - 35.9 g/dL 07/22/2020 10:50 AM [facility] Platelet Count 263 150 - 400 10? 3 /uL 07/22/2020 10:50 AM [facility] RDW-SD 39.6 36.0 - 50.0 fL 07/22/2020 10:50 AM [facility] RDW-CV 11.9 11.2 - 14.8 % 07/22/2020 10:50 AM [facility] MPV 9.5 9.4 - 12.9 fL 07/22/2020 10:50 AM [facility] nRBC Absolute 0.00 0 10? 3 /uL 07/22/2020 10:50 AM [facility] nRBC Auto 0.0 0 /100 WBC 07/22/2020 10:50 AM [facility] Neutrophils % 52.7 35.0 - 70.0 % 07/22/2020 10:50 AM [facility] Lymphocytes % 41.1 20.0 - 43.0 % 07/22/2020 10:50 AM [facility] Monocytes % 4.3(L) 5.0 - 13.0 % 07/22/2020 10:50 AM [facility] Eosinophils % 1.2 0.0 - 6.0 % 07/22/2020 10:50 AM [facility] Basophil % 0.6 0.0 - 2.0 % 07/22/2020 10:50 AM [facility] Neutrophils Absolute 3.5 1.6 - 7.0 10? 3 /uL 07/22/2020 10:50 AM [facility] Lymphocyte Absolute 2.8 1.1 - 3.9 10? 3 /uL 07/22/2020 10:50 AM [facility] Monocytes Absolute 0.29 0.26 - 1.07 10? 3 /uL 07/22/2020 10:50 AM [facility] Eosinophils Absolute 0.08 0.00 - 0.47 10? 3 /uL 07/22/2020 10:50 AM [facility] Basophils Absolute 0.04 0.00 - 0.08 10? 3 /uL 07/22/2020 10:50 AM [facility] Immature Granulocytes % 0.1 0.0 - 1.0 % 07/22/2020 10:50 AM [facility] Immature Granulocytes Absolute 0.01 07/22/2020 10:50 AM [facility] Blood BLOOD SPECIMEN / Unknown Lab Venipuncture / Unknown 07/22/2020 10:19 AM CDT 07/22/2020 10:30 AM CDT Ankur Osorio MD LAB - HEMATOLOGY JIN STACY Performing Organization Address City/[facility] Hospital/ZIP Co de Phone Number [facility] [address] [address], [facility] [phone] * ALDOLASE (07/22/2020 10:19 AM CDT) [facility] Aldolase 4.9 1.5 - 8.1 U/L 07/23/2020 7:04 PM CDT [facility] [employer] ([facility]) Comment: REFERENCE INTERVAL: Aldolase Access complete set of age- and/or gender-specific reference intervals for this test in the [facility] Test Directory ([facility]). Performed By: [facility] [address] [place] [address] Real Estate Accountant: Vandana Otero MD Blood BLOOD SPECIMEN / Unknown Lab Venipuncture / Unknown 07/22/2020 10:19 AM CDT 07/22/2020 11:16 AM CDT Ankur Osorio MD LAB - CHEMISTRY RAMILA RAMESH Performing Organization Address [facility] Co de Phone Number [facility] [address] [place] [address] * HEPATITIS C ANTIBODY (07/22/2020 10:19 AM CDT) [facility] Hepatitis C Antibody Non-react kalen Non-reac tive 07/22/2020 12:35 PM CDT [facility] Comment:Hepatitis C Antibody screen indicates [...] Osorio MD LAB - CHEMISTRY RAMILA RAMESH [facility] [address] [place] [address], [place] [phone] * HEPATITIS B SURFACE ANTIGEN W RFLX CONFIRMATION (07/22/2020 10:19 AM CDT) Pathologist [facility] Hepatitis B Virus Surface Antigen Non-reacti ve Non-reacti ve 07/22/2020 12:35 PM [facility] Blood BLOOD SPECIMEN / Unknown Lab Venipuncture / Unknown 07/22/2020 10:19 AM CDT 07/22/2020 10:37 AM CDT Ankur Osorio MD LAB - CHEMISTRY RAMILA RMAESH [facility] Organization Address City/State/ZIP Co de Phone Number [facility] [address] [place] [address], [facility] [phone] * (ABNORMAL) LUPUS ANTICOAGULANT PANEL (07/22/2020 10:19 AM CDT) Pathologist [facility] APTT 31.9 23.0 - 38.4 Seconds 07/23/2020 9:29 AM [facility] PT 11.9(L) 12.1 - 14.8 Seconds 07/23/2020 9:29 AM [facility] INR 0.9 See Comment 07/23/2020 9:29 AM [facility] Buffer 58.2 Seconds 021 9:29 AM [facility] [place] Phospholipid 50.8 Seconds 07/23/2020 9:29 AM [facility] [place] Delta 7.4 <8.0 Seconds 07/23/2020 9:29 AM [facility] Interpretation [place] Negative 07/23/2020 9:29 AM [facility] Comment:Up to 15-20% of mikhail ents with [...] Osorio MD LAB - HEMATOLOGY ORD ERABLES [facility] [address] [place] [address], [facility] [phone] * BETA-2 GLYCOPROTEIN 1 ANTIBODY IGA (07/22/2020 10:19 AM CDT) Beta-2 Glycoprotein Antibody IgA 6 0 - 20 ESA 07/25/2020 2:10 AM CDT [facility] [employer] ([facility]) Comment: Performed By: [facility] [address] [place] [address] Real Estate Accountant: Vandana Otero MD Blood BLOOD SPECIMEN / Unknown Lab Venipuncture / Unknown 07/22/2020 10:19 AM CDT 07/22/2020 11:16 AM CDT Ankur Osorio MD LAB - SEROLOGY ORDER GRECIA Performing Organization Address City/[facility]/ZIP Co de Phone Number [facility] [employer] ([facility]) [address] * RAMOS/MECHANICAL EQUIPMENT SALES ENGINEER (CASSIE) ANTIBODY IGG (07/22/2020 10:19 AM CDT) Ramos/MECHANICAL EQUIPMENT SALES ENGINEER (CASSIE) Antibody IgG See Note 07/27/2020 3:44 PM CDT [facility] [employer] ([facility]) Comment: EFFECTIVE 03/25/2020 TEST/REFERENCE INTERVAL CHANGE Ramos/MECHANICAL EQUIPMENT SALES ENGINEER (CASSIE) Antibody, Ig Units Due to reagent kit performance, an alternate kit has been validated and implemented by [facility]. ??This semi-quantitative enzyme-linked immunosorbent assay (DIANA) detects IgG antibody to the Sm/MECHANICAL EQUIPMENT SALES ENGINEER complex. The following Reference Interval applies to this result: 19 Units or less ?Negative 20 to 39 Units ?Weak Positive 40 to 80 Units ?Moderate Positive 81 Units or greater ? Strong Positive Ramos/MECHANICAL EQUIPMENT SALES ENGINEER antibodies are frequently seen in patients with mixed connective tissue disease (MCTD) and are also associated with other systemic autoimmune rheumatic diseases (SARDs) such as systemic lupus erythematosus (SLE), systemic sclerosis, and myositis. Antibodies targeting the Ramos/MECHANICAL EQUIPMENT SALES ENGINEER antigenic complex also recognize Ramos antigens, therefore, the Ramos antibody response must be considered when interpreting these results. Performed By: [facility] [address] [place] [address] Real Estate Accountant: Vandana Otero MD Blood BLOOD SPECIMEN / Unknown Lab Venipuncture / Unknown 07/22/2020 10:19 AM CDT 07/22/2020 11:16 AM CDT Ankur Osorio MD LAB - CHEMISTRY RAMILA RAMESH [facility] [address] [place] [address], [facility] * RAMOS (SM) ANTIBODY CASSIE (07/22/2020 10:19 AM CDT) [facility] Ramos (CASSIE) Antibody 0 0 - 40 AU/mL 07/25/2020 8:19 AM CDT [facility] ([facility]) Comment: INTERPRETIVE INFORMATION: Ramos (CASSIE) Antibody, IgG ??29 AU/mL or Less ............. Negative ??30 - 40 AU/mL ................ Equivocal ??41 AU/mL or Greater .......... Positive Ramos antibody is highly specific (greater than 90 percent) for systemic lupus erythematosus (SLE) but only occurs in 30-35 percent of SLE cases. The presence of antibodies to Ramos has variable associations with SLE clinical manifestations. Performed By: [facility] [address] [place] [address] Real Estate Accountant: Vandana Otero MD Blood BLOOD SPECIMEN / Unknown Lab Venipuncture / Unknown 07/22/2020 10:19 AM CDT 07/22/2020 10:37 AM CDT Ankur Osorio MD LAB - CHEMISTRY RAMILA RAMESH [facility] [employer] [facility]) [address] [place] [address], [facility] * RHEUMATOID FACTOR BLOOD QUANTITATIVE (07/22/2020 10:19 AM CDT) Rheumatoid Factor <15 <30 IU/mL 07/22/2020 1:47 PM CDT [facility] Rheumatoid Factor Screen Negative Negative 07/22/2020 1:47 PM CDT [facility] Blood BLOOD SPECIMEN / Unknown Lab Venipuncture / Unknown 07/22/2020 10:19 AM CDT 07/22/2020 10:37 AM CDT Ankur Osorio MD LAB - CHEMISTRY RAMILA RAMESH Performing Organization Address City/[facility]/ZIP Co de Phone Number [address] [address], [place] [phone] * CYCLIC CITRULLINATED PEPTIDE(CCP) AB IGG (07/22/2020 10:19 AM CDT) CCP Antibody IgG <0.5 <5.0 U/mL 07/22/2020 2:13 PM CDT [facility] Blood BLOOD SPECIMEN / Unknown Lab Venipuncture / Unknown 07/22/2020 10:19 AM CDT 07/22/2020 10:37 AM CDT Ankur Osorio MD LAB - CHEMISTRY RAMILA RAMESH Performing Organization Address [facility]/ZIP Co de Phone Number [address] [address], [place] [phone] * CHROMATIN ANTIBODY (07/22/2020 10:19 AM CDT) Chromatin Antibody 2 0 - 19 Units 07/25/2020 1:51 AM CDT [facility] [employer] ([facility]) Comment: INTERPRETIVE INFORMATION: Chromatin Antibody, IgG ??19 Units or less: Negative ??20 - 60 Units: Moderate Positive ??61 Units or greater: Strong Positive The presence of anti-chromatin antibodies may be useful in the diagnosis of systemic lupus erythematosus (SLE) or drug-induced lupus (DIL) and have been reported to be predictive of lupus nephritis, especially when antibody levels are high. Performed By: [facility] [address] [place] [address] Real Estate Accountant: Vandana Otero MD Blood BLOOD SPECIMEN / Unknown Lab Venipuncture / Unknown 07/22/2020 10:19 AM CDT 07/22/2020 11:16 AM CDT Ankur Osorio MD LAB - SEROLOGY ORDER GRECIA [facility] [employer] ([facility]) [address] [place] [address], [facility] * DNA ANTIBODY DOUBLE STRANDED (07/22/2020 10:19 AM CDT) [facility] dsDNA Antibody 2 0 - 24 IU 07/24/2020 6:06 PM CDT [facility] [employer] ([facility]) Comment: INTERPRETIVE INFORMATION: Double-Stranded DNA (dsDNA) Ab [...] is negative by TAZ but positive by DINAA and clinical suspicion remains, consider antinuclear antibody (CHAPINCITO) testing by IFA. Additional information and recommendations for testing may be found at http://www.Shelf.com.com/Topics/AutoimmuneDz/ConnectiveTissueDz/i ndex.html. Performed By: [facility] [address] [place] [address] Real Estate Accountant: Vandana Otero MD Blood BLOOD SPECIMEN / Unknown Lab Venipuncture / Unknown 07/22/2020 10:19 AM CDT 07/22/2020 11:16 AM CDT Ankur Osorio MD LAB - HEMATOLOGY ORD ERABLES [facility] [address] [place] [address], [facility] * COMPLEMENT C4 (07/22/2020 10:19 AM CDT) Complement C4 28 15 - 57 mg/dL 07/22/2020 12:35 PM CDT [facility] Blood BLOOD SPECIMEN / Unknown Lab Venipuncture / Unknown 07/22/2020 10:19 AM CDT 07/22/2020 10:37 AM CDT Ankur Osorio MD LAB - SEROLOGY ORDER GRECIA Performing Organization Address City/[facility]/ZIP Co de Phone Number [address] [address], [facility] [phone] * COMPLEMENT C3 (07/22/2020 10:19 AM CDT) Complement C3 116 82 - 193 mg/dL 07/22/2020 12:35 PM CDT [facility] Blood BLOOD SPECIMEN / Unknown Lab Venipuncture / Unknown 07/22/2020 10:19 AM CDT 07/22/2020 10:37 AM CDT Ankur Osorio MD LAB - CHEMISTRY ORDE GADIEL [address] [address], [place] [phone] * HAYDE-1 ANTIBODY (07/22/2020 10:19 AM CDT) Hayde-1 Antibody IgG 1 0 - 40 AU/mL 07/24/2020 6:53 PM CDT [facility] ([facility]) Comment: INTERPRETIVE INFORMATION: ??Hayde-1 Antibody, IgG ??29 AU/mL or less.........Negative ??30-40 AU/mL..............Equivocal ??41 AU/mL or greater......Positive Presence of Hayde-1 (antihistidyl transfer RNA [t-RNA] synthetase) antibody is associated with polymyositis and may also be seen in patients with dermatomyositis. Hayde-1 antibody is associated with pulmonary involvement (interstitial lung disease), Raynaud phenomenon, arthritis, and maintenance mechanic millwright's hands (implicated in antisynthetase syndrome). Performed By: [facility] [address] [place] [address] Real Estate Accountant: Vandana Otero MD Blood BLOOD SPECIMEN / Unknown Lab Venipuncture / Unknown 07/22/2020 10:19 AM CDT 07/22/2020 11:16 AM CDT Ankur Osorio MD LAB - CHEMISTRY RAMILA RAMESH [facility] ([facility]) [address] [place] [address], [facility] * CARDIOLIPIN ANTIBODY IGM (07/22/2020 10:19 AM CDT) [facility] Cardiolipin Antibody IgM <10 0 - 12 MPL 07/24/2020 5:38 PM CDT [facility] [employer] ([facility]) Comment: INTERPRETIVE INFORMATION: Anti-Cardiolipin IgM 0-12 MPL: [...] other criteria phospholipid antibody tests. Performed By: [facility] [address] [place] [address] Real Estate Accountant: Vandana Otero MD Blood BLOOD SPECIMEN / Unknown Lab Venipuncture / Unknown 07/22/2020 10:19 AM CDT 07/22/2020 11:16 AM CDT Ankur Osorio MD LAB - SEROLOGY ORDER GRECIA Performing Organization Address [facility] de Phone Number [facility] [facility]) [address] [place] [address] * CARDIOLIPIN ANTIBODY IGA (07/22/2020 10:19 AM CDT) Cardiolipin Antibody IgA <10 0 - 11 APL 07/24/2020 5:38 PM CDT [facility] [employer] ([facility]) Comment: INTERPRETIVE INFORMATION: Cardiolipin Antibodies, IgA 0-11 APL: Negative 12-19 APL: Indeterminate 20-80 APL: Low to Moderately ??Positive 81 APL or above: High Positive Performed By: [facility] [address] [place] [address] Real Estate Accountant: Vandana Otero MD Blood BLOOD SPECIMEN / Unknown Lab Venipuncture / Unknown 07/22/2020 10:19 AM CDT 07/22/2020 11:16 AM CDT Ankur Osorio MD LAB - SEROLOGY ORDER GRECIA Performing Organization Address [facility] de Phone Number [facility] ([facility]) [address] [place] [address] * CARDIOLIPIN ANTIBODY IGG (07/22/2020 10:19 AM CDT) Cardiolipin Antibody IgG <10 0 - 14 GPL 07/24/2020 5:38 PM CDT [facility] [employer] ([facility]) Comment: INTERPRETIVE INFORMATION: Anti-Cardiolipin IgG Ab 0-14 [...] other criteria phospholipid antibody tests. Performed By: [facility] [address] [place] [address] Real Estate Accountant: Vandana Otero MD Blood BLOOD SPECIMEN / Unknown Lab Venipuncture / Unknown 07/22/2020 10:19 AM CDT 07/22/2020 11:16 AM CDT Ankur Osorio MD LAB - SEROLOGY ORDER GRECIA [facility]) [address] [place] [address], [facility] * DNA ANTIBODY DS CRITHIDIA TITER (07/22/2020 10:19 AM CDT) Pathologist [facility] dsDNA Antibody IgG <1:10 <1:10 2020 5:04 PM CDT [facility] ([facility]) Comment: INTERPRETIVE INFORMATION: Double-Stranded DNA (dsDNA) Antibody, [...] recommendations for testing may be found at http://www.Shelf.com.com/Topics/AutoimmuneDz/ConnectiveTissueDz/i ndex.html. Performed By: [facility] [address] [place] [address] Real Estate Accountant: Vandana Otero MD Blood BLOOD SPECIMEN / Unknown Lab Venipuncture / Unknown 07/22/2020 10:19 AM CDT 07/22/2020 10:36 AM CDT Ankur Osorio MD LAB - SEROLOGY ORDER GRECIA Performing Organization Address [facility]/ZIP Co de Phone Number [facility] [address] [place] [address] * (ABNORMAL) COMPLEMENT ACTIVITY TOTAL (CH50) (07/22/2020 10:19 AM CDT) Pathologist [facility] Complement Activity Total CH50 >95.00(H) 38.70 - 89.90 U/mL 07/23/2020 10:51 PM CDT [facility] ([facility]) Comment: REFERENCE INTERVAL: Complement Activity Total, (CH50) ? 38.6 U/mL or less ..........Low ? 38.7-89.9 U/mL .............Normal ? 90.0 U/mL or greater .......High Performed By: [facility] [address] [place] [address] Real Estate Accountant: Vandana Otero MD Blood BLOOD SPECIMEN / Unknown Lab Venipuncture / Unknown 07/22/2020 10:19 AM CDT 07/22/2020 10:37 AM CDT Ankur Osorio MD LAB - CHEMISTRY ORDE GADIEL Performing Organization Address City/[facility]/ZIP Co de Phone Number [facility] [address] [place] [address] * BETA-2 GLYCOPROTEIN 1 ANTIBODY IGG/IGM PANEL (07/22/2020 10:19 AM CDT) Beta-2 Glycoprotein Antibody IgG 2 0 - 20 SGU 07/25/2020 6:08 PM CDT [facility] ([facility]) Beta-2 Glycoprotein Antibody IgM 12 0 - 20 SMU 07/25/2020 6:08 PM CDT [facility] ([facility]) Comment: INTERPRETIVE INFORMATION: [id number] I, IgG and IgM Antibody The persistent [...] other criteria phospholipid antibody tests. Performed By: [facility] [address] [place] [address] Real Estate Accountant: Vandana Otero MD Blood BLOOD SPECIMEN / Unknown Lab Venipuncture / Unknown 07/22/2020 10:19 AM CDT 07/22/2020 11:16 AM CDT Ankur Osorio MD LAB - CHEMISTRY RAMILA RAMESH [facility]) [address] [place] [address], [facility] * SS-A (SJOGREN'S) 52+60 ANTIBODIES (07/22/2020 10:19 AM CDT) SS-A 52 Antibody 0 0 - 40 AU/mL 07/24/2020 6:53 PM CDT [facility] ([facility]) Comment: INTERPRETIVE INFORMATION: SSA-52 (Ro52) (CASSIE) Antibody, [...] - 40 AU/mL 07/24/2020 6:53 PM CDT [facility] [employer] ([facility]) Comment: REFERENCE INTERVAL: SSA-60 (Ro60) (CASSIE) Antibody, IgG ??29 AU/mL or Less ............. Negative ??30 - 40 AU/mL ................ Equivocal ??41 AU/mL or Greater .......... 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
--- OUTSIDE RECORDS SUMMARY | 2024-03-02 05:36 | XMS_ITS | Encounter Summary ---
Author Organization [facility] Address [facility] [place] [address] [place] [address] Care Team Providers Care Cone Baker Machine Name Role Phone Unavailable Primary Care Provider Unavailabl e Encounter Details Date Type Department Care Team (Late st Contact Info) Description 07/09/[address] [facility] [address] [place] [address] Santo Gutierrez MD [address] [place] [address] Social History Tobacco Use Types Packs/Day Years Used Date Smoking Tobacco: Never Assessed Comments Unknown Sex and Gender Information Value Date Recorded Sex Assigned at Not on file Legal Sex Female 9:45 PM BAGGING SALVAGER Gender Identity Not on file Sexual Orientation Not on file documented as of this encounter Plan of Treatment Not on file documented as of this encounter Visit Diagnoses Diagnosis Spotting complicating , antepartum (HHS/HCC) Spotting complicating , antepartum condition or complication documented in this encounter
--- OUTSIDE RECORDS SUMMARY | 2024-03-02 05:36 | XMS_ITS | Encounter Summary ---
Author Organization [facility] Address [facility] [place] [address] [place] [address] Care Team Providers Care Full Roll Inspector Name Role Phone Unavailable Primary Care Provider Unavailabl e Encounter Details Date Type Department Care Team (Late st Contact Info) Description 06/26/2008 Abstract [facility] [address] [place] [address] Santo Gutierrez MD [address] [place] [address] Social History Tobacco Use Types Packs/Day Years Used Date Smoking Tobacco: Never Assessed Comments Unknown Sex and Gender Information Value Date Recorded Sex Assigned at Not on file Legal Sex Female 9:45 PM NUCLEAR AUXILIARY OPERATOR Gender Identity Not on file Sexual Orientation Not on file documented as of this encounter Plan of Treatment Not on file documented as of this encounter Visit Diagnoses Diagnosis Spotting complicating , antepartum (HHS/HCC) Spotting complicating , antepartum condition or complication documented in this encounter
--- OUTSIDE RECORDS SUMMARY | 2024-03-02 05:36 | XMS_ITS | Encounter Summary ---
Author Organization [facility] Address [facility] [place] [address] [place] [address] Care Team Providers Care Ip Counsel Name Role Phone Unavailable Primary Care Provider Unavailabl e Encounter Details Date Type Department Care Team (Late st Contact Info) Description 01/05/[address] 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
--- OUTSIDE RECORDS SUMMARY | 2024-03-02 05:36 | XMS_ITS | Encounter Summary ---
Author Organization [facility] Address [facility] [place] [address] [place] [address] Care Team Providers Care Merchandising Consultant Name Role Phone Unavailable Primary Care Provider Unavailabl e Encounter Details Date Type Department Care Team (Late st Contact Info) Description 04/20/[address] [facility] [address] [place] [address] Santo Gutierrez MD [address] [place] [address] Social History Tobacco Use Types Packs/Day Years Used Date Smoking Tobacco: Never Assessed Comments Unknown Sex and Gender Information Value Date Recorded Sex Assigned at Not on file Legal Sex Female 9:45 PM DIRECTOR OF LABORATORY OPERATIONS Gender Identity Not on file Sexual Orientation Not on file documented as of this encounter Plan of Treatment Not on file documented as of this encounter Visit Diagnoses Diagnosis Need for prophylactic immunotherapy documented in this encounter
--- OUTSIDE RECORDS SUMMARY | 2024-03-02 05:36 | XMS_ITS | Encounter Summary ---
Author Organization [facility] Address [facility] [place] [address] [place] [address] Care Team Providers Care Embroiderer Name Role Phone Unavailable Primary Care Provider Unavailabl e Encounter Details Date Type Department Care Team (Late st Contact Info) Description 04/10/2009 Abstract [facility] [address] [facility] [place] [address] Social History Tobacco Use Types Packs/Day Years Used Date Smoking Tobacco: Never Assessed Comments Unknown Sex and Gender Information Value Date Recorded Sex Assigned at Not on file Legal Sex Female 9:45 PM STRATEGY ASSOCIATE Gender Identity Not on file Sexual Orientation Not on file documented as of this encounter Plan of Treatment Not on file documented as of this encounter Visit Diagnoses Diagnosis Bronchitis Bronchitis, not specified as acute or chronic documented in this encounter
--- OUTSIDE RECORDS SUMMARY | 2024-03-02 05:36 | XMS_ITS | Encounter Summary ---
Author Organization [facility] Address [facility] [place] [address] [place] [address] Care Team Providers Care Sr. Social Media & Mobile Manager Name Role Phone Unavailable Primary Care Provider Unavailabl e Encounter Details Date Type Department Care Team (Late st Contact Info) Description 05/02/[address] [facility] [address] [place] [address] Santo Gutierrez MD [address] [place] [address] Social History Tobacco Use Types Packs/Day Years Used Date Smoking Tobacco: Never Assessed Comments Unknown Sex and Gender Information Value Date Recorded Sex Assigned at Not on file Legal Sex Female 9:45 PM INDEPENDENT FREIGHT AGENT Gender Identity Not on file Sexual Orientation Not on file documented as of this encounter Plan of Treatment Not on file documented as of this encounter Visit Diagnoses Diagnosis Other complication of , antepartum (HHS/HCC) documented in this encounter
--- OUTSIDE RECORDS SUMMARY | 2024-03-02 05:36 | XMS_ITS | Encounter Summary ---
Author Organization [facility] Address [facility] [facility] [place] [address] [place] [address] Care Team Providers Care Lumber Tallier Name Role Phone Unavailable Primary Care Provider Unavailabl e Encounter Details Date Type Department Care Team (Late st Contact Info) Description 04/03/[address] [facility] [address] [place] [address] Zaira Rivera MD [address] [place] [address] Social History Tobacco Use Types Packs/Day Years Used Date Smoking Tobacco: Never Assessed Comments Unknown Sex and Gender Information Value Date Recorded Sex Assigned at Not on file Legal Sex Female 9:45 PM INSIDE SALES SPECIALIST Gender Identity Not on file Sexual Orientation Not on file documented as of this encounter Plan of Treatment Not on file documented as of this encounter Visit Diagnoses Diagnosis Routine follow-up ([facility] Routine follow-up documented in this encounter
--- OUTSIDE RECORDS SUMMARY | 2024-03-02 05:36 | XMS_ITS | Encounter Summary ---
Author Organization [facility] Address [facility]. 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
--- OUTSIDE RECORDS SUMMARY | 2024-03-02 05:36 | XMS_ITS | Encounter Summary ---
Author Organization [facility] Address [address] [place] [address] Care Team Providers Care Packager And Strapper Name Role Phone Maxim Masterson MD Primary Care Provider [phone] Encounter Details Date Type Department Care Team (Late st Contact Info) Description 09/27/2016 Anesthesia Historic Visit [facility] [address] [place] [id number] Social History Tobacco Use Types Packs/Day Years Used Date Smoking Tobacco: Never Assessed Sex and Gender Information Value Date Recorded Sex Assigned at Not on file Gender Identity Not on file Sexual Orientation Not on file documented as of this encounter Plan of Treatment Not on file documented as of this encounter Visit Diagnoses Not on filedocumented in this encounter Care Teams Packager And Strapper Relationship Specialty Start Date End Date Maxim Masterson MD [address] [place] [id number] PCP - General 09/27/16 documented as of this encounter
--- OUTSIDE RECORDS SUMMARY | 2024-03-02 05:36 | XMS_ITS | Encounter Summary ---
Author Organization [facility] Address [facility] [facility] [place] [address] [place] [address] Care Team Providers Care Donor Specialist Name Role Phone Unavailable Primary Care Provider Unavailabl e Encounter Details Date Type Department Care Team (Late st Contact Info) Description 01/02/2008 Abstract [facility] [address] [place] [address] Santo Gutierrez MD [address] [place] [address] Social History Tobacco Use Types Packs/Day Years Used Date Smoking Tobacco: Never Assessed Comments Unknown Sex and Gender Information Value Date Recorded Sex Assigned at Not on file Legal Sex Female 9:45 PM [employer]BRACHO TANNER Gender Identity Not on file Sexual Orientation Not on file documented as of this encounter Plan of Treatment Not on file documented as of this encounter Visit Diagnoses Not on filedocumented in this encounter
--- OUTSIDE RECORDS SUMMARY | 2024-03-02 05:36 | XMS_ITS | Encounter Summary ---
Author Organization [facility] Address [address] [place] [address] Care Team Providers Care Captain Fishing Vessel Name Role Phone Maxim Masterson MD Primary Care Provider [phone] Reason for Visit * Auth/Cert Specialty Diagnoses / Procedures Referred By Contac t Referred To Contact Diagnoses Neck Pain Referral ID Status Reason Start Date Expiration Date Visits Re quested Visits Authorized [id number] 1 1 Encounter Details Date Type Department Care Team (Latest Contact Info) Description 09/04/2019 5:45 AM CDT - 09/04/2019 6:28 PM CDT Hospital Encounter [address] [address] Barbara Schofield MD [facility] [address] Neurosurgery Discharge Disposition: Home or Self Care Social [...] on file documented as of this encounter Last Filed Vital Signs Vital Sign Reading Time Taken Comments Blood Pressure 124/90 09/04/2019 4:02 PM CDT Pulse 66 09/04/2019 4:02 PM CDT Temperature 36.6 ??C (97.9 ??F) 09/04/2019 4:02 PM CD T Respiratory Rate 18 09/04/2019 5:47 AM CDT Oxygen Saturation 97% 09/04/2019 4:02 PM CDT Inhaled Oxygen Concentration - - Weight 78 kg (172 lb) 09/04/2019 6:05 AM CDT Height 177.8 cm (5' 10 ) 09/04/2019 6:05 AM CDT Body Mass Index 24.68 09/04/2019 6:05 AM CDT documented in this encounter Functional Status [...] No 09/04/2019 documented as of this encounter Discharge Summaries * Jewels Lockett MD - 09/04/2019 5:31 PM CDT Physician Discharge Summary Patient ID: Yovana Simental [id number] 29 year old 1990 Admit date: 09/04/2019 Discharge date and time: 09/04/2019 5:32 PM Admitting Physician: Barbara Schofield MD Discharge Physician: Jewels Lockett MD Admission Diagnoses: <principal problem not specified> Discharge Diagnoses: Active Problems: S/P PAYROLL AND BENEFITS COORDINATOR shunt Neck pain Admission Condition: fair Discharged Condition: good Indication for Admission: possible PAYROLL AND BENEFITS COORDINATOR shunt malfunction Hospital Course: Patient is a 29 year old female with a history of right ventriculoperitoneal (PAYROLL AND BENEFITS COORDINATOR) shunt for idiopathic intracranial hypertension (IIH), placed in September [address] Robertson. The patient presents with 2 weeks of left sided neck pain, left orbital pain, left sided vision changes, nausea, and occasional vomiting. She was admitted to OSH where CT head and C-spine which were found to be grossly normal. CT head revealed no ventriculomegaly or shift. Basal cisterns were patent. Despite this imaging, her symptoms continued to progress and she was transferred to [facility] for workup of possible VPshunt malfunction. Per opthalmology, the patient was not found to have any papilledema. A shunt series was also found to be normal. At time of discharge, patient was ambulating without assistance, tolerating a diet, pain controlled w PO regimen, and urinating spontaneously. Consults: optho Significant Diagnostic Studies: See hospital course Treatments: See hospital course Discharge Exam: General: WDWN white female laying in bed with hands over her eyes Respiratory: NLBORA Neuro: AAOx4, PERRLA, EOMI, CNV: equal sensation bilaterally, facies symmetric, unable to assess SCM 2/2 to pain and lack of patient effort, shoulder shrug strong. Follows commands and moves extremities x4. Strength 5/5 in BUE and BLE although LUE effort limited by pain. Sensation intact throughout. No drift. Disposition: home Patient Instructions: Referral has been made to see Dr. Newby. [facility] neurology should reach out to you to make this appointment. There is no need to follow up with Dr. Schofield at this time. Please reach out to Dr. Robertson's office with any issues or concerns regarding your shunt. This list of medications is preliminary and tentative: please see the Patient Discharge Instructions for patient's discharged home or the Facility Transfer Order for the final and accurate medications list. Current Discharge Medication List CONTINUE these medications which have NOT CHANGED Details cyclobenzaprine (FLEXERIL) 10 MG tablet Take 10 mg by mouth 3 times daily traMADol (ULTRAM) 50 MG tablet Take 50 mg by mouth every 6 hours as needed for Pain Jewels Lockett MD, 09/04/2019 at 5:32 PM documented in this encounter Discharge Instructions * Discharge Instructions* Kelvin Dyer MD - 09/04/2019 4:06 PM CDT Images from the original note were not included. Hospital Ophthalmology Discharge Instructions [facility] Ophthalmology (Located at [facility]) [address] [place] [place] [address] [facility] (Normal Office hours 8am - 5pm) Follow up Appointment: We will arrange a next available appointment on October 13 at 9:30 am. - It is important you follow up for your eye(s). - If you have trouble making or getting to your appointment please call the numbers below. Reasons to call: - call with any new changes in vision, including worse vision, if you have a feeling of a curtain coming down over your vision or new flashing lights or sudden new floaters in your vision. - call with any questions about your drops or eye medications, or if you have trouble getting thesemedicines. Phone Number: Weekdays (8am-5pm) - Call [phone] (Weekday) or [phone] (Alternative Number) Evenings, Weekends, or Holidays: Call [phone] and dial [phone] for the metal bonding press operator. Ask to speak to the eye doctor credit collections clerk. They will connect us. Clinic Location and Map: [facility] [place] [address] The [facility] Ophthalmology clinic (Eye Clinic) is located down the street from the [facility] [facility], less than 5 minutes away. Parking is available in our parking structure and is free. Nearest Bus Stop : [place] The clinic is located on the floor which is at the top of the parking structure. Drive to the top of the parking deck, and then walk through the main doors. Ophthalmology will be straight ahead. Please call the number listed above for an appointment. Closer View documented in this encounter Medications at Time of Discharge Medication Sig Dispensed Refills Start Date End Date cyclobenzaprine (FLEXERIL) 10 MG tablet Take 10 mg by mouth 3 times daily 07/22/2020 traMADol (ULTRAM) 50 MG tablet Take 50 mg by mouth every 6 hours as needed for Pain 07/22/2020 documented as of this encounter Progress Notes * Kenyetta Dodge - 09/04/2019 3:11 PM CDT .A Chart Review has been conducted by Case Management. Anticipated level of care at discharge: Home Discharge Plan: Return to home once medically stable Basic Needs Assessment (BNA) Score: 2 PCP: Maxim Masterson MD Per nursing assessments: No concerns noted at this time. Transportation (who): TBD Welder Railcar Mechanic/Support: TBD Welder Railcar Mechanic person: TBD Home/Functional Status: Functional and Cognitive Status Is person deaf or have serious hearing difficulty?: No Is person blind or have serious difficulty seeing?: No Does person have serious difficulty walking/climbing stairs?: No Does person have difficulty dressing/bathing?: No Does person have difficulty doing errands alone?: No Does person have difficulty concentrating/remembering/making decisions?: No ?. Will continue to follow. For any questions or needs please contact: Manager Resource Name/Phone number: Kenyetta Dodge [phone] [phone] documented in this encounter H&P Notes * Jewels Lockett MD - 09/04/2019 6:36 AM CDT Neurosurgery History and Physical Name: Yovana Simental : 1990 Date of Admission:09/04/2019 Date of Consult:09/04/2019 6:36 AM Chief Complaint (CC): PAYROLL AND BENEFITS COORDINATOR shunt malfunction HISTORY OF PRESENT ILLNESS (HPI): Patient is a 29 year old female with a history of right ventriculoperitoneal (PAYROLL AND BENEFITS COORDINATOR) shunt for idiopathic intracranial hypertension (IIH), placed in September [address] Robertson. The patient presents with 2 weeks of left sided neck pain, left orbital pain, left sided vision changes, nausea, and occasional vomiting. She was admitted to [facility] where CT head and C-spine which were found to be grossly normal. CT head revealed no ventriculomegaly or shift. Basal cisterns were patent. Despite thisimaging, her symptoms continued to progress and [facility] workup of possible PAYROLL AND BENEFITS COORDINATOR shunt malfunction. Past Medical History: Diagnosis Date ??? S/P PAYROLL AND BENEFITS COORDINATOR shunt Past Surgical History: Procedure Laterality Date ??? Hysterectomy ??? TX EXPLORATORY OF ABDOMEN multiple REMOTE INPATIENT CODER surgeries Allergies Allergen Reactions ??? Povidone Iodine Swelling ??? Shellfish Allergy Anaphylaxis Current Medications cyclobenzaprine (FLEXERIL) 10 MG tablet Take 10 mg by mouth 3 times daily traMADol (ULTRAM) 50 MG tablet Take 50 mg by mouth every 6 hours as needed for Pain No current facility-administered medications for this encounter. Social History Tobacco Use ??? Smoking status: Current Every Day Smoker Packs/day: 1.00 ??? Smokeless tobacco: Never Used Substance Use Topics ??? Alcohol use: No No family history on file. REVIEW OF SYSTEMS Unable to obtain secondary to patient factors PHYSICAL EXAM BP 111/80 Pulse 58 Temp 97.4 ??F (36.3 ??C) (Oral) Resp 18 Ht 1.778 m (5' 10 ) Wt 78 kg (172 lb) SpO2 100% BMI 24.68 kg/m2 General: WDWN white female laying in bed with hands over her eyes Respiratory: NLBORA Neuro: AAOx4, PERRLA, EOMI, CNV: equal sensation bilaterally, facies symmetric, unable to assess SCM 2/2 to pain and lack of patient effort, shoulder shrug strong. Follows commands and moves extremities x4. Strength 5/5 in BUE and BLE although LUE effort limited by pain. Sensation intact throughout. No drift. LABORATORY Recent Labs Component Name 09/29/16 0519 WBC 10.6* HGB 13.2 HCT 39.5 PLTCOUNT 272 Recent Labs Component Name 09/29/16 0518 NA 140 POTASSIUM 4.3 CO2 23 BUN 11 CREATININE 0.8 GLUCOSE 98 Recent Labs Component Name 09/22/16 [address] head OSH: No ventriculomegaly or midline shift. Normal corpus callosum, normal CV junction, Basal cisterns are patent and position of the right frontal ventriculostomy catheter is stable. Assessment: 29 year old female with PMH of IIH s/p right PAYROLL AND BENEFITS COORDINATOR shunt presenting with 2 weeks of symptoms concerning for PAYROLL AND BENEFITS COORDINATOR shunt malfunction. Plan: -Continue to follow neuro exam -Pain management for EVANS -Imaging: -OSH CT head reviewed, stable -LP not indicated at this time given imaging -Optho consult: -evaluate for papilledema -Please page neurosurgery credit collections clerk with any questions or concerns Case discussed with Dr. Hartman and to be discussed with Dr. Chandu Lockett MD 09/04/2019 6:36 AM Associated attestation - Barbara Schofield MD - 09/05/2019 10:57 AM CDT ATTENDING ATTESTATION: I performed a history and physical examination of the patient and discussed management with Dr. Lockett. I reviewed the resident's/ note and agree with the documented findings and plan of care. Barbara Schofield MD 09/04/2019 10:57 AM documented in this encounter Consult Notes * Yazmin Messer MD - 09/04/2019 4:18 PM CDT Images from the original note were not included. Patient with prior h/o IIH with PAYROLL AND BENEFITS COORDINATOR shunt Readmitted for worsening headache/neck pain No papilledema noted per examination today Shunt series normal revview of records: Shows prior admission in 2019 for similar problem -considered tension EVANS then Plan: Prior images question was raised about filling defect in the right transverse sinus but this has features of CSF on T2 images hence most c/w arachnoid granulation rather than VST. ?? Headache management per neurology We can see her outpatient in our clinic to establish care. * Yazmin Messer MD - 09/04/2019 1:06 PM CDT Images from the original note were not included. Ophthalmology Consult Note [facility] Date: 09/04/2019 Patient name: Yovana Simental Patient : 1990 Patient Date of Initial Consult: Yovana Simental is a 29 year old female with PMH of IIH who was transferred from outside hospitalafter she presented with 2 weeks of left sided neck, and orbital pain as well as changes in vision and nausea and vomitting. She has history of a Ventriculoperitoneal shunt place in September of [address] Robertson. She had apparently been referred for this by Dr. De Jesus, a neurologist who had been treated her for headaches which began as a chronic issue. She had undergone several LPs, the first of which demonstrated elevated intracranial pressure. The patient had seen an foundry laborer coreroom who noted slight disc edema, by description at most grade II. Per record review, it appears that the neurologist was treating her with 500mg BID of acetazolamide and in February of 2016 referred to neurosurgery for consideration of PAYROLL AND BENEFITS COORDINATOR shunt. Review of records note a LP performed in August of 2015 which had an opening pressure of 34, a subsequent pressure obtained in October of 2015 demonstrated a result of 20 mmHg, presumably while she was on treatment. CSF labs were reported as normal. Review of Imaging: Demonstrates normal brain MRI, and questionable MRV which on first discussion with radiology possibly had a venous sinus thrombosis, on further review, it appears this likely to be an arachnoid granulation. REVIEW OF SYSTEMS: Skin: negative with no recent rashes Ears/Nose/Throat: negative with no mouth dryness or sores Respiratory: negative without cough, dyspnea, or pleuritic pain Cardiovascular: negative without exertional chest pain, palpitations, or edema Gastrointestinal: negative without ulcers, bleeding, or frequent reflux Genitourinary: negative without dysuria, frequency, or nocturia Musculoskeletal:positive for neck pain Neurologic: muscle tension type headaches, migraine headaches and retroorbital/facial pain Psychiatric: negative Hematologic/Lymphatic/Immunologic: negative, with no history of anemia or DVT PMHx: Patient Active Problem List: Presence of cerebrospinal fluid drainage device Benign intracranial hypertension S/P PAYROLL AND BENEFITS COORDINATOR shunt Benign intracranial hypertension Neck pain POHx: As above PFHx: No family history of blindness, glaucoma, amblyopia, strabismus, retinal detachment. SocHx: Social History Socioeconomic History ??? Marital status: Spouse name: Not on file ??? Number of children: Not on file ??? Years of education: Not on file ??? Highest education level: Not on file Occupational History ??? Not on file Social Needs ??? Financial resource strain: Not on file ??? Food insecurity Worry: Not on file Inability: Not on file ??? Transportation needs Medical: Not on file Non-medical: Not on file Tobacco Use ??? Smoking status: Current Every Day Smoker Packs/day: 1.00 ??? Smokeless tobacco: Never Used Substance and Sexual Activity ??? Alcohol use: No ??? Drug use: No ??? Sexual activity: Not Currently Partners: Male Lifestyle ??? Physical activity Days per week: Not on file Minutes per session: Not on file ??? Stress: Not on file Relationships ??? Social connections Talks on phone: Not on file Gets together: Not on file Attends sabianism service: Not on file Active member of club or organization: Not on file Attends meetings of clubs or organizations: Not on file Relationship status: Not on file ??? Intimate partner violence Fear of current or ex partner: Not on file Emotionally abused: Not on file Physically abused: Not on file Forced sexual activity: Not on file Other Topics Concern ??? Not on file Social History Narrative ??? Not on file All: Allergies Allergen Reactions ??? Povidone Iodine Swelling ??? Shellfish Allergy Anaphylaxis Meds: MEDICATIONS FOR CURRENT ENCOUNTER: SCHEDULED MEDICATIONS: [COMPLETED] diphenhydrAMINE (BENADRYL) injection 12.5 mg, Intravenous, Once ?? [COMPLETED] ondansetron (disintegrating) (ZOFRAN ODT) tablet 4 mg, Oral, Once CONTINUOUS MEDICATIONS: ?? No current facility-administered medications for this encounter. PRN MEDICATIONS: ?? No current facility-administered medications for this encounter. Base Eye Exam Visual Acuity Right Left Near sc 20/25 -1 20/20 -3 Tonometry (Tonopen, 1:58 PM) Right Left Pressure 12 13 Pupils Dark Light Shape React APD Right 6 4 Round 2+ None Left 6 4 Round 2+ None Visual Vicente Left Right Full Full Extraocular Movement Right Left Full Full Dilation Both eyes: 2.5% Willy Synephrine, 1.0% Tropicamide @ 2:01 PM Additional Tests Color Right Left Ishihara 01/03 01/03 Slit Lamp and Fundus Exam External Exam Right Left External Normal Normal Slit Lamp Exam Right Left Lids/Lashes Normal Normal Conjunctiva/Sclera White and quiet White and quiet Cornea 2+ inferior SPEE 2+ inferior SPEE Anterior Chamber Deep and quiet Deep and quiet Iris Round and reactive Round and reactive Lens Clear Clear Vitreous Normal Normal Fundus Exam Right Left Disc Normal - pink, distinct rims Normal - pink distinct rims Macula Normal Normal Vessels Normal Normal Periphery Normal Normal Assessment and Plan: 1.Consultation for evaluation of disc edema - no disc edema was seen on examination today. - recommend follow up with Dr. Messer in September - recommend outpatient referral to Dr. Newby for headache management - can consider repeat imaging as outpatient - no symptoms concerning for vision affecting fulminant IIH 2. Dry Eye - Recommend patient start artificial tears PRN If you have any questions, please feel free to reach out via [employer] secure chat or page ophthalmology. Discussed with Dr. Gui Dyer MD 09/04/19 8:48 PM Ophthalmology PGY-3 [facility] Patient seen and examined with Resident. I confirm history, exam, assessment and plan. In addition,I interpreted the diagnostic tests myself and agree with the reported interpretation in the chart. Date of service: 09/04/2019 The plan was discussed with the patient and follow up compliance was agreed upon. I discussed the patient and personally reviewed the images and prior MRI. Agree with no papilledema Prior images question was raised about filling defect in the right transverse sinus but this has features of CSF on T2 images hence most c/w arachnoid granulation rather than VST. Headache management per neurology We can see her outpatient in our clinic to establish care. Yazmin Messer MD documented in this encounter Plan of Treatment Not on file documented as of this encounter Procedures Procedure Name Priority Date/Time Associated Diagnosis Comments XR SHUNT SERIES Routine 09/04/2019 1:34 PM CDT S/P PAYROLL AND BENEFITS COORDINATOR shunt documented in this encounter Results * XR SHUNT SERIES (09/04/2019 1:34 PM CDT) Anatomical Region Laterality Modality Abdomen, Pelvis Radiographic Mariangel ging 09/04/2019 4:07 PM CDT Impressions 09/05/2019 9:02 AM CDT IMPRESSION: Intact right frontal approach ventriculoperitoneal shunt. Dictated by Farshad Benavidez MD (residential interior designer). I, Dr. MOLINA ARREOLA have personally reviewed and interpreted this examination/study. This report was electronically signed by MOLINA ARREOLA ??on 09/05/2019 9:02 AM . Narrative 09/05/2019 9:02 AM CDT EXAM: XR SHUNT SERIES DATE: 09/04/2019 1:35 PM HISTORY: Z98.2: S/P PAYROLL AND BENEFITS COORDINATOR shunt FINDINGS: A right frontal approach ventriculoperitoneal [...] are seen in the pelvis. Procedure Note Molina Arreola DO - 09/05/2019 EXAM: XR SHUNT SERIES DATE: 09/04/2019 1:35 PM HISTORY: Z98.2: S/P PAYROLL AND BENEFITS COORDINATOR shunt FINDINGS: A right frontal approach ventriculoperitoneal [...] shunt. Dictated by Farshad Benavidez MD (residential interior designer). I, Dr. MOLINA ARREOLA have personally reviewed and interpreted this examination/study. This report was electronically signed by MOLINA ARREOLA on 09/05/2019 9:02 AM . Maite Rose APRN-RADIO TESTER DIAGNOSTIC IMAGING O [employer]DER[employer]LES documented in this encounter Visit Diagnoses Diagnosis Neck pain- Primary Cervicalgia Neck pain Cervicalgia S/P PAYROLL AND BENEFITS COORDINATOR shunt Presence of cerebrospinal fluid drainage device S/P PAYROLL AND BENEFITS COORDINATOR shunt Presence of cerebrospinal fluid drainage device documented in this encounter Administered Medications Inactive Administered Medications - up to 3 most recent administrations Medication Order MAR Action Action Date Dose Rate Site diphenhydrAMINE (BENADRYL) injection 12.5 mg 12.5 mg, Intravenous, ONCE, 1 dose, On Priscilla 09/04/19 at 1045, Administer IV at a rate not exceeding 25 mg/min. Can dilute in 5-10 mL NS as needed for patient comfort. $ Given 09/04/2019 1:08 PM CDT 12.5 mg HYDROcodone-acetaminophen (NORCO) 5-325 MG tablet 1 tablet 1 tablet, Oral, EVERY 4 HOURS PRN, Moderate Pain, Starting on Priscilla 09/04/19 at 0814, Until Priscilla 09/04/19 at 1452 $ Given 09/04/2019 1:07 PM CDT 1 tablet $ Given 09/04/2019 8:53 AM CDT 1 tablet ketorolac (TORADOL) injection 15 mg 15 mg, Intramuscular, EVERY 6 HOURS PRN, headache, Starting on Priscilla 09/04/19 at 1016, Until Priscilla 09/04/19 at 1452 $ Given 09/04/2019 1:08 PM CDT 15 mg Left Dorsogluteal ketorolac (TORADOL) injection 15 mg 15 mg, Intravenous, EVERY 6 HOURS PRN, headache, Starting on Priscilla 09/04/19 at 1452, Until Priscilla 09/04/19 at 1928 $ Given 09/04/2019 4:50 PM CDT 15 mg ondansetron (disintegrating) (ZOFRAN ODT) tablet 4 mg 4 mg, Oral, ONCE, 1 dose, On Priscilla 09/04/19 at 1045, Allow tablet to dissolve on the tongue $ Given 09/04/2019 1:07 PM CDT 4 mg documented in this encounter Active and Recently Administered Medications Times are shown in CDT. Scheduled Medication Order 09/02/2019 09/03/2019 09/04/2019 diphenhydrAMINE (BENADRYL) injection 12.5 mg (COMPLETED) 12.5 mg, Intravenous, ONCE, 1 dose, On Priscilla 09/04/19 at 1045, Administer IV at a rate not exceeding 25 mg/min. Can dilute in 5-10 mL NS as needed for patient comfort. 1308 ($ Given - Prov ider: Marco A Gasca RN - Comment: pt off floor in Radiology) ondansetron (disintegrating) (ZOFRAN ODT) tablet 4 mg (COMPLETED) 4 mg, Oral, ONCE, 1 dose, On Priscilla 09/04/19 at 1045, Allow tablet to dissolve on the tongue 1307 ($ Given - Prov ider: Marco A Gasca RN - Comment: pt off floor) PRN Medication Order 09/02/2019 09/03/2019 09/04/2019 HYDROcodone-acetaminophen (NORCO) 5-325 MG tablet 1 tablet (CANCELED) 1 tablet, Oral, EVERY 4 HOURS PRN, Moderate Pain, Starting on Priscilla 09/04/19 at 0814, Until Priscilla 09/04/19 at 1452 0853 ($ Given - Prov ider: Marco A Gasca RN)1307 ($ Given - Provider: Marco A Gasca RN) ketorolac (TORADOL) injection 15 mg (CANCELED) 15 mg, Intramuscular, EVERY 6 HOURS PRN, headache, Starting on Priscilla 09/04/19 at 1016, Until Priscilla 09/04/19 at 1452 1308 ($ Given - Prov ider: Marco A Gasca RN) ketorolac (TORADOL) injection 15 mg 15 mg, Intravenous, EVERY 6 HOURS PRN, headache, Starting on Priscilla 09/04/19 at 1452, Until Priscilla 09/04/19 at 1928 1650 ($ Given - Prov ider: Nai Merritt RN) documented in this encounter Care Teams Captain Fishing Vessel Relationship Specialty Start Date End Date Maxim Masterson MD [address] [place] [address] PCP - General 09/27/16 documented as of this encounter
--- OUTSIDE RECORDS SUMMARY | 2024-03-02 05:36 | XMS_ITS | Encounter Summary ---
Author Organization [facility] Address [facility] [place] [address] [place] [address] Care Team Providers Care Boarding Mother Name Role Phone Unavailable Primary Care Provider Unavailabl e Encounter Details Date Type Department Care Team (Late st Contact Info) Description 09/07/2011 Abstract [facility] [address] [facility] [address] Fish Patricio MD [address] [place] [address] Social History Tobacco Use Types Packs/Day Years Used Date Smoking Tobacco: Never Assessed Comments Unknown Sex and Gender Information Value Date Recorded Sex Assigned at Not on file Legal Sex Female 9:45 PM KAIAKO KURA TUARUA Gender Identity Not on file Sexual Orientation Not on file documented as of this encounter Plan of Treatment Not on file documented as of this encounter Visit Diagnoses Diagnosis Dizziness and giddiness documented in this encounter
--- OUTSIDE RECORDS SUMMARY | 2024-03-02 05:36 | XMS_ITS | Encounter Summary ---
Author Organization [facility] Address [facility] [place] [address] [place] [address] Care Team Providers Care Chef De Partie Name Role Phone Unavailable Primary Care Provider Unavailabl e Encounter Details Date Type Department Care Team (Late st Contact Info) Description 08/12/[address] 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
--- OUTSIDE RECORDS SUMMARY | 2024-03-02 05:36 | XMS_ITS | Encounter Summary ---
Author Organization [facility] Address [facility] 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
--- OUTSIDE RECORDS SUMMARY | 2024-03-02 05:36 | XMS_ITS | Encounter Summary ---
Author Organization [facility] Address [facility] [place] [address] [place] [address] Care Team Providers Care Hair Cutter Name Role Phone Unavailable Primary Care Provider Unavailabl e Encounter Details Date Type Department Care Team (Late st Contact Info) Description 07/12/[address] 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
--- OUTSIDE RECORDS SUMMARY | 2024-03-02 05:36 | XMS_ITS | Encounter Summary ---
Author Organization [facility] Address [facility]6 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
--- OUTSIDE RECORDS SUMMARY | 2024-03-02 05:36 | XMS_ITS | Encounter Summary ---
Author Organization [facility] Address [address] [facility] [place] [address] Care Team Providers Care Lead Pony Rider Name Role Phone Maxim Masterson MD Primary Care Provider [phone] Encounter Details Date Type Department Care Team (Latest Contact Info) Description 09/22/2016 Hospital Outpatient Visit Historic [facility] [address] [place] [id number] Arnoldo Robertson MD [address] [address] Discharge Disposition: Home or Self Care Social [...] Procedure Name Priority Date/Time Associated Diagnosis Comments PTT [facility] Routine 09/22/2016 10:39 AM CDT PT-INR [facility] Routine 09/22/2016 10:39 AM CDT DIFFERENTIAL MANUAL Routine 09/22/2016 1 0:39 AM CDT CBC W AUTO DIFFERENTIAL Routine 09/22/2016 10:39 AM CDT BASIC METABOLIC PANEL (CALCIUM TOTAL) Routine 09/22/2016 10:39 AM CDT CBC W AUTO DIFFERENTIAL Routine 09/22/2016 10:39 AM CDT NICOTINE METABOLITE URINE Routine 09/22/2016 10:32 AM CDT documented in this encounter Results * (ABNORMAL) DIFFERENTIAL MANUAL (09/22/2016 10:39 AM CDT) WBC (corrected for NRBC) 8.1 10? 3 /uL [facility] Total Cell Count 100 [facility] Neutrophils Absolute Manual 5.27 1.60 - 7.00 10? 3 /uL [facility] Comment:(BANDS+SEGS) x WBC = NEUT # (ANC) Lymphocyte Absolute Manual 2.27 0.80 - 2.90 10? 3 /uL [facility] Monocytes Absolute Manual 0.32 0.14 - 0.66 10? 3 /uL [facility] Eosinophils Absolute Manual 0.08 0.00 - 0.22 10? 3 /uL [facility] Basophil Absolute Manual 0.08(H) 0.00 - 0.06 10? 3 /uL [facility] Band % Manual 1 0 - 10 % [facility] Neutrophil % Manual 64(H) 30 - 60 % [facility] Lymphocyte % Manual 28 20 - 45 % [facility] Monocytes % Manual 4 2 - 10 % [facility] Eosinophils % Manual 1 1 - 6 % [facility] Basophils % Manual 1 0 - 3 % [facility] Atypical Lymphocyte % Manual 1(H) 0 % [facility] Platelet Estimate Adequate Adequate [facility] RBC Morphology Normal [facility] Blood specimen (specimen) BLOOD SPECIMEN / Unknown 09/22/2016 10:39 AM CDT 09/22/2016 10:56 AM CDT Arnoldo Robertson MD LAB - HEMATOLOGY OR DERABLES [facility] [address] [place] [address] * PTT [facility] (09/22/2016 10:39 AM CDT) APTT 28.2 23.0 - 38.4 Seconds [facility] Comment:Suggested therapeuti c range for full dose I.V. heparin therapy for venous thromboembolism is 66.0-91.0 seconds. Blood specimen (specimen) BLOOD SPECIMEN / Unknown 09/22/2016 10:39 AM CDT 09/22/2016 10:56 AM CDT Narrative [facility] - 09/22/2016 11:56 AM CDT Is patient on Heparin, Argatroban or Dabigatran?->N Arnoldo Robertson MD LAB - COAGULATION O EDWAR Performing Organization Address [facility] Co de Phone Number [address] [phone] * PT-INR [facility] (09/22/2016 10:39 AM CDT) PT 12.4 12.1 - 14.8 Seconds [facility] INR 0.9 See Comment [facility] Comment: Suggested therapeutic range for low-intensity coumadin therapy for venous thromboembolism prophylaxis is an INR of 2.0-3.0. ??For high risk patients (Mitral Valve Prosthesis, Atrial Fibrillation, history of TIA/stroke), suggested prophylactic therapeutic range is an INR of 2.5-3.5. Blood specimen (specimen) BLOOD SPECIMEN / Unknown 09/22/2016 10:39 AM CDT 09/22/2016 10:56 AM CDT Narrative [facility] - 09/22/2016 11:55 AM CDT Is patient on Heparin, Argatroban or Dabigatran?->N Arnoldo Robertson MD LAB - COAGULATION O EDWAR Performing Organization Address [facility] Co de Phone Number [address] [phone] * (ABNORMAL) BASIC METABOLIC PANEL (CALCIUM TOTAL) (09/22/2016 10:39 AM CDT) BUN 17 7 - 26 mg/dL [facility] Creatinine 0.8 0.6 - 1.2 mg/dL [facility] Sodium 142 136 - 145 mmol/L [facility] Potassium 4.3 3.5 - 4.5 mmol/L [facility] Comment:Hemolysis detected i n this specimen. Hemolysis is known to cause elevations in this analyte. Caution should be exercised in the interpretation of this result. Recommend repeat testing if clinically indicated. Chloride 109(H) 98 - 107 mmol/L [facility] CO2 20(L) 22 - 29 mmol/L [facility] Glucose 116(H) 70 - 115 mg/dL [facility] Calcium 9.5 8.4 - 10.2 mg/dL [facility] Anion Gap 17 8 - 18 [facility] BUN/Creatinine Ratio 21 7 - 23 [facility] Osmolality Calculated 297 270 - 300 mOsm/kg [facility] eGFR >60 >60 mL/min/1. 73 m2 [facility] Blood specimen (specimen) BLOOD SPECIMEN / Unknown 09/22/2016 10:39 AM CDT 09/22/2016 10:56 AM CDT Arnoldo Robertson MD LAB - CHEMISTRY ORD ERABLES [address] [phone] * CBC W AUTO DIFFERENTIAL (09/22/2016 10:39 AM CDT) WBC 8.1 3.5 - 10.5 10? 3 /uL [facility] RBC 4.94 3.90 - 5.00 10? 6 /uL [facility] Hemoglobin 14.7 12.0 - 15.5 g/dL [facility] Hematocrit 43.0 35.0 - 45.0 % [facility] MCV 87.0 81.0 - 97.0 fL [facility] MCH 29.8 28.0 - 34.0 pg [facility] MCHC 34.2 32.0 - 36.0 g/dL [facility] Platelet Count 284 150 - 400 10? 3 /uL [facility] RDW-SD 39.2 36.0 - 50.0 fL [facility] RDW-CV 12.3 11.2 - 14.8 % [facility] MPV 9.9 9.3 - 12.8 fL [facility] nRBC Absolute 0.00 0 10? 3 /uL [facility] nRBC Auto 0.0 0 /100 WBC [facility] Reflex Status Manual Differential to follow. [facility] Blood specimen (specimen) BLOOD SPECIMEN / Unknown 09/22/2016 10:39 AM CDT 09/22/2016 10:56 AM CDT Arnoldo Robertson MD LAB - HEMATOLOGY OR DERABLES Performing Organization Address [facility]/State/ZIP Co de Phone Number [facility] [address] [phone] * CBC W AUTO DIFFERENTIAL (09/22/2016 10:39 AM CDT) Blood specimen (specimen) BLOOD SPECIMEN / Unknown 09/22/2016 10:[address] [facility] - 09/22/2016 12:07 PM CDT The following orders were created for panel order CBC w/ Differential, Platelet. Procedure ? Abnormality ? Status ? --------- ? ------ ? CBC WITH DIFFERENTIAL[[id number]] ? Final result ? MANUAL DIFFERENTIAL[[id number]] ? Abnormal ?Final result ? Please view results for these tests on the individual orders. Arnoldo Robertson MD LAB - HEMATOLOGY OR DERABLES [place] [id number] [place] [id number], [facility] * NICOTINE METABOLITE URINE (09/22/2016 10:32 AM CDT) Cotinine Negative Cutoff=30 0 ng/mL [facility]) Comment Drug Screen Comment [facility] Comment: This assay provides a preliminary unconfirmed analytical test result that may be suitable for the clinical management of patients in certain situations. ??For workplace drug testing programs, preliminary positive findings should always be confirmed by an alternative method. Some [id number] medications, as well as adulterants, may cause inaccurate results. Screen Only testing does not meet the [employer] Forensic Urine Drug Testing Program requirements as a forensic urine drug test for workplace testing. All clients must ensure that their testing program conforms to applicable state and federal laws and employment agreements. Urine specimen (specimen) URINE SPECIMEN OBTAINED BY CLEAN CATCH PROCEDURE / Unknown 09/22/2016 10:32 AM CDT 09/22/2016 10:57 AM CDT Narrative [facility]) - 09/23/2016 7:06 PM CDT Performed at: ??01 - [facility] [address] ??[id number] Slag Dumper: Ralf Ely MD, Phone: ??[phone] Performed at: ??02 - [facility] [address] ??[id number] Slag Dumper: Isak Silva PhD, Phone: ??[phone] Arnoldo Robertson MD LAB - URINE ART OBJECTS SALESPERSON RY ORDERABLES [facility]) documented in this encounter Visit Diagnoses Diagnosis Benign intracranial hypertension documented in this encounter Care Teams Lead Pony Rider Relationship Specialty Start Date End Date Maxim Masterson MD [address] [place] [address] PCP - General 09/27/16 documented as of this encounter
--- OUTSIDE RECORDS SUMMARY | 2024-03-02 05:36 | XMS_ITS | Encounter Summary ---
Author Organization [facility] Address [facility] [place] [address] [place] [address] Care Team Providers Care Creel Hand Name Role Phone Unavailable Primary Care Provider Unavailabl e Encounter Details Date Type Department Care Team (Late st Contact Info) Description 02/15/[address] 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
--- OUTSIDE RECORDS SUMMARY | 2024-03-02 05:36 | XMS_ITS | Encounter Summary ---
Author Organization [facility] Address [facility] 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
--- OUTSIDE RECORDS SUMMARY | 2024-03-02 05:36 | XMS_ITS | Encounter Summary ---
Author Organization [facility] Address [address] [place] [address]. 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 No / Unsure 12/23/2020 9:45 AM CDT documented as of this encounter Plan of Treatment Not on file documented as of this encounter Visit Diagnoses Not on filedocumented in this encounter Care Teams Extrusion Technician Relationship Specialty Start Date End Date Ravi Deng MD [address] [facility] [place] [phone] PCP - General FAMILY PRACTICE 12/22/20 documented as of this encounter
--- OUTSIDE RECORDS SUMMARY | 2024-03-02 05:36 | XMS_ITS | Encounter Summary ---
Author Organization [facility] Address [address] [facility] [place] [address] Care Team Providers Care Ventilator Specialist Name Role Phone Maxim Masterson MD Primary Care Provider [phone] Reason for Visit * Reason Onset Date Comments Future Appointment 01/29/2018 Encounter Details Date Type Department Care Team (Late st Contact Info) Description 01/29/2018 Telephone [facility] [address] [place] [address] Arnoldo Robertson MD [address] [address] Future Appointment Social History Tobacco Use Types Packs/Day Years Used Date Smoking Tobacco: Former Cigarettes Smokeless Tobacco: Former Quit: 09/07/2016 Alcohol Use Standard Drinks/Week Comments No 0 (1 standard drink = 0.6 oz pur e alcohol) Sex and Gender Information Value Date Recorded Sex Assigned at Not on file Gender Identity Not on file Sexual Orientation Not on file documented as of this encounter Miscellaneous Notes * Telephone Encounter - Tabatha Donovan - 01/29/2018 11:46 AM CST Attempt made to remind patient of upcoming appointment but phone number is not working. Y HEAD START TEACHER documented in this encounter Plan of Treatment Not on file documented as of this encounter Visit Diagnoses Not on filedocumented in this encounter Care Teams Ventilator Specialist Relationship Specialty Start Date End Date Maxim Masterson MD [address] [place] [address] PCP - General 09/27/16 documented as of this encounter
--- OUTSIDE RECORDS SUMMARY | 2024-03-02 05:36 | XMS_ITS | Encounter Summary ---
Author Organization [facility] Address [facility] access hospital6 [place] [address] [place] [address] Care Team Providers Care Welt Insole Channeler Name Role Phone Unavailable Primary Care Provider Unavailabl e Encounter Details Date Type Department Care Team (Late st Contact Info) Description 04/09/[address] 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
--- OUTSIDE RECORDS SUMMARY | 2024-03-02 05:36 | XMS_ITS | Encounter Summary ---
Author Organization [facility] Address [facility] [place] [address] [place] [address] Care Team Providers Care Relief Captain Name Role Phone Unavailable Primary Care Provider Unavailabl e Encounter Details Date Type Department Care Team (Late st Contact Info) Description 06/09/[address] 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
--- OUTSIDE RECORDS SUMMARY | 2024-03-02 05:36 | XMS_ITS | Encounter Summary ---
Author Organization [facility] Address [address] [facility] [place] [address] Care Team Providers Care Chilling Hood Operator Name Role Phone Maxim Masterson MD Primary Care Provider [phone] Encounter Details Date Type Department Care Team (Latest Contact Info) Description 02/01/2017 Hospital Outpatient Visit Historic [facility] [address] [place] [phone] Arnoldo Robertson MD [address] [place] [address] Discharge Disposition: Home or Self Care Social [...] on filedocumented in this encounter Care Teams Chilling Hood Operator Relationship Specialty Start Date End Date Maxim Masterson MD [address] [place] [address] PCP - General 09/27/16 documented as of this encounter
--- OUTSIDE RECORDS SUMMARY | 2024-03-02 05:36 | XMS_ITS | Encounter Summary ---
Author Organization [facility] Address [facility] 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
--- OUTSIDE RECORDS SUMMARY | 2024-03-02 05:36 | XMS_ITS | Encounter Summary ---
Author Organization [facility] Address [facility] [place] [address] [place] [address] Care Team Providers Care Entry Operator Name Role Phone Unavailable Primary Care Provider Unavailabl e Encounter Details Date Type Department Care Team (Late st Contact Info) Description 06/23/[address] 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
--- OUTSIDE RECORDS SUMMARY | 2024-03-02 05:36 | XMS_ITS | Encounter Summary ---
Author Organization [facility] Address [facility] [place] [address] [place] [address] Care Team Providers Care Drywall Hanger Helper Name Role Phone Unavailable Primary Care Provider Unavailabl e Encounter Details Date Type Department Care Team (Late st Contact Info) Description 08/16/2009 Abstract [facility] [address] [facility] [place] [address] Jakob Gauthier MD [address] [place] [id number] Social History Tobacco Use Types Packs/Day Years Used Date Smoking Tobacco: Never Assessed Comments Unknown Sex and Gender Information Value Date Recorded Sex Assigned at Not on file 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
--- OUTSIDE RECORDS SUMMARY | 2024-03-02 05:36 | XMS_ITS | Encounter Summary ---
Author Organization [facility] Address [address] [facility] [facility] [address] [place] [address] Care Team Providers Care Control Equipment Electrician Name Role Phone Maxim Masterson MD Primary Care Provider [phone] Encounter Details Date Type Department Care Team (Late st Contact Info) Description 08/31/2019 Orders Only [facility] [address] [place] [address] Mor Crespo MD [address] [facility] [address] [place] [address] Social History Tobacco Use Types Packs/Day Years Used Date Smoking Tobacco: Former Cigarettes Smokeless Tobacco: Never Alcohol Use Standard [...] on filedocumented in this encounter Care Teams Control Equipment Electrician Relationship Specialty Start Date End Date Maxim Masterson MD [address] [place] [id number] PCP - General 09/27/16 documented as of this encounter
--- OUTSIDE RECORDS SUMMARY | 2024-03-02 05:36 | XMS_ITS | Encounter Summary ---
Author Organization [facility] Address [address] [facility] [place] [address] Care Team Providers Care Barrel Roller Operator Name Role Phone Maxim Masterson MD Primary Care Provider [phone] Encounter Details Date Type Department Care Team (Late st Contact Info) Description 09/28/2016 Anesthesia Historic Visit [facility] OP [address] [place] [phone] Social History Tobacco Use Types Packs/Day Years Used Date Smoking Tobacco: Never Assessed Sex and Gender Information Value Date Recorded Sex Assigned at Not on file Gender Identity Not on file Sexual Orientation Not on file documented as of this encounter Plan of Treatment Not on file documented as of this encounter Visit Diagnoses Not on filedocumented in this encounter Care Teams Barrel Roller Operator Relationship Specialty Start Date End Date Maxim Masterson MD [address] [place] [id number] PCP - General 09/27/16 documented as of this encounter
--- OUTSIDE RECORDS SUMMARY | 2024-03-02 05:36 | XMS_ITS | Encounter Summary ---
Author Organization [facility] Address [facility] [place] [address] [place] [address] Care Team Providers Care Qc Scientist Name Role Phone Unavailable Primary Care Provider Unavailabl e Encounter Details Date Type Department Care Team (Late st Contact Info) Description 06/08/[address] 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
--- OUTSIDE RECORDS SUMMARY | 2024-03-02 05:36 | XMS_ITS | Encounter Summary ---
Author Organization [facility] Address [address] [facility] [place] [address] Care Team Providers Care Grain Unloader Name Role Phone Maxim Masterson MD Primary Care Provider [phone] Reason for Visit * Consult, Test & Treat (Routine) - Closed Specialty Diagnoses / Procedures Referred By Contac t Referred To Contact Rheumatology Diagnoses Pain in right toe(s) Pain in left toe(s) Auto immune neutropenia (HCC) Autoimmune disease (HCC) Lena Nelson, [employer] [address] [place] [address] Referral ID Status Reason Start Date Expiration Date Visits Re quested Visits Authorized [id number] Closed 04/12/2020 04/12/2021 1 1 Encounter Details Date Type Department Care Team (Late st Contact Info) Description 07/22/2020 8:30 AM CDT Office Visit [facility] Rheumatology [address] [place] [address], [place] [address] Ankur Osorio MD [address] [place] [address] [place] [address] Livedo reticularis (Primary Dx); History of multiple miscarriages Social History Tobacco Use Types Packs/Day Years [...] Sign Reading Time Taken Comments Blood Pressure 118/82 07/22/2020 8:17 AM CDT Pulse - - Temperature 36.8 ??C (98.3 ??F) 07/22/2020 8:17 AM CD T Respiratory Rate - - Oxygen Saturation - - Inhaled Oxygen Concentration - - Weight 77.5 kg (170 lb 12.8 oz) 07/22/2020 8:17 AM CDT Height 175.3 cm (5' 9 ) 07/22/2020 8:17 AM CDT Body Mass Index 25.22 07/22/2020 8:17 AM CDT documented in this encounter Functional [...] Progress Notes * Ankur Osorio MD - 07/22/2020 8:42 AM CDT (Prob #1) Arthralgias Feet with Lupus pernio Changes/Acrocyanosis(Prob #2) Pseudotumor Cerebri (Subj) Patient has history of 6 months problems with red patches on her toes of both feet and blistering, ankles swelled, but COVID testing negative Resolving, but still present. No hands lesions . No other skin lesions. No mucosal lesions. Mild sicca complaints over last two years. Mild Raynaud's/cyanotic like lesions over the last year in cold, but no skin breakdown or unhealing cuts. No systemic complaints. Mild arthralgias/myalgias legs and ankles. AM stiffness UE/LE for about 45 minutes. Marked fatigue over last two years. (Past History) (1) Meds: On no meds; (2) Oper: Shunt for Psedoutumort cerebri in 2017; Hysterectomyfor endometriosis and other laparoscopies over last 20 years. Cyst right wrist (Ganglion); (3) Injur: None; (4) All: Iodine/shellfish since age 1; Bronchitis once/year; (5) ID: Immunizations as a child. (6) ROS: No other rashes. HAs daily; Migraines. No adenopathy/thyroid problems. No other Pulm/Car d; Mild reflux; No other GI/IBD symptoms. [id number] in the first 8 weeks. No N-P problems, but follows with NS/Neurology. Rest of ROS unrevealing (Past History) Smokes 0.5-1 PPD for 15 years. No alcohol or drug abuse. Homemaker; (Fam History) AI Thyroiditis. BP problems. Aunt with Migraines. Mother [id number]; No known APLS, possible CTD. (Obj) BP 118/82 (BP SITE: RIGHT ARM, BP POSITION: SITTING, BP CUFF SIZE: 11) Temp 98.3 ??F (36.8 ??C) (Oral) Ht 5' 9 (1.753 m) Wt 170 lb 12.8 oz (77.5 kg) BMI 25.22 kg/m2 (Skin) UE/LE livedo. Mild acrocyanosis. No skin breakdown or unhealing cuts presently. Tattoos (HEENT) No mucosal ulcers. Moist membranes. No parotid/cartiilage tenderness. (Neck/Back) No adenopathy/thyromegaly/mild tenderness LS area. (Chest) NBS with no r,r, or w; (Heart) RR with no m,r, or g; (Abdomen) NBS with no m,t, or o; (Extrem) No synovitis/enthesitis (Neuro) Sensory intact to t,ps, and vs. MS= bilat; TRs 1+ and = bilat (Assess) UE/LE Livedo with Migraine HAs/MiscarriagesAcricyanosis/Possible Raynaud's; Evaluate for underlying APLS/CTD/Vasculitis/AI Thyroiditis (Plan) Labs as below. Advise further on etiology and therapy when results return. Emphasized patient has to stop smoking. Discussed with patient. RTO in 2 weeks. Ankur Osorio MD, FACP, FAAP, MACR [employer] Pediatric Rheumatology Professor of Internal Medicine,Pediatrics, and Molecular Immunology [facility] documented in this encounter Plan of Treatment Not on file documented as of this encounter Results * HISTONE ANTIBODY (07/22/2020 10:22 AM CDT) Pathologist [facility] Histone Antibody IgG 0.1 0.0 - 0.9 Units 07/25/2020 9:16 AM CDT [email or web address] ([facility]) Comment: INTERPRETIVE INFORMATION: Histone Ab, IgG ??0.9 Units or less ............ Negative ??1.0 - 1.5 Units .............. Weak Positive ??1.6 - 2.5 Units .............. Moderate Positive ??2.6 Units or greater ......... Strong Positive Performed By: [employer] [address] [place] [address] Service Architect: Vandana Otero MD Blood BLOOD SPECIMEN / Unknown 07/22/2020 10:22 AM CDT 07/22/2020 10:23 AM CDT Ankur Osorio MD LAB - CHEMISTRY RAMILA RAMESH [employer] [facility]) [address] [place] [address], [facility] * CHAPINCITO BLOOD SCREEN W/REFLEX TITER (07/22/2020 10:19 AM CDT) [facility] CHAPINCITO IgG None Detected None Detected 07/25/2020 2:05 AM CDT [email or web address] ([facility]) Comment: If suspicion of connective tissue disease is strong and CHAPINCITO EIA is negative, consider testing for CHAPINCITO by IFA ([id number]). INTERPRETIVE INFORMATION: Anti-Nuclear Antibodies (CHAPINCITO), IgG by DIANA Antinuclear Antibodies (CHAPINCITO), IgG by DIANA: CHAPINCITO specimens are screened using enzyme-linked immunosorbent assay (DIANA) methodology. All DIANA results reported as Detected are further tested by indirect fluorescent assay (IFA) using HEp-2 substrate with an IgG-specific conjugate. The CHAPINCITO DIANA screen is designed to detect antibodies against dsDNA, histones, SS-A (Ro), SS-B (La), Ramos, Ramos/TRESTLEMAN, Scl-70, Hayde-1, centromeric proteins, other antigens extracted from the HEp-2 cell nucleus. CHAPINCITO DIANA assays have been reported to have lower sensitivities than CHAPINCITO IFA for systemic autoimmune rheumatic diseases (SARD). Negative results do not necessarily rule out SARD. Performed By: [employer] [address] [place] [address] Service Architect: Vandana Otero MD Blood BLOOD SPECIMEN / Unknown Lab Venipuncture / Unknown 07/22/2020 10:19 AM CDT 07/22/2020 11:16 AM CDT Ankur Osorio MD LAB - CHEMISTRY RAMILA RAMESH [facility] [employer] ([facility]) [address] [place] [address], [facility] * MPO/MT 3 AUTOANTIBODIES PANEL (07/22/2020 10:19 AM CDT) Serine Proteinase 3 IgG 3 0 - 19 AU/mL 07/25/2020 6:20 AM CDT [facility] [employer] ([facility]) Comment: INTERPRETIVE INFORMATION: Serine Proteinase 3, IgG ??19 AU/mL or Less ........ Negative ??20-25 AU/mL ............. Equivocal ??26 AU/mL or Greater ..... Positive Approximately 85% of patients with a C-ANCA pattern by IFA have antibodies specific for PR3. Performed By: [employer] [address] [place] [address] Service Architect: Vandana Otero MD Myeloperoxidase Antibody 0 0 - 19 AU/mL 07/25/2020 6:20 AM CDT [facility] [employer] ([facility]) Comment: INTERPRETIVE INFORMATION: Myeloperoxidase Abs, IgG ??19 AU/mL or Less ......... Negative ??20-25 AU/mL .............. Equivocal ??26 AU/mL or Greater ...... Positive Approximately 90% of patients with a P-ANCA pattern by IFA have antibodies specific for MPO. Blood BLOOD SPECIMEN / Unknown Lab Venipuncture / Unknown 07/22/2020 10:19 AM CDT 07/22/2020 11:16 AM CDT Ankur Osorio MD LAB - CHEMISTRY RAMILA RAMESH [facility] [employer] [facility]) [address] [place] [address], [facility] * SCLERODERMA COMPREHENSIVE AB PANEL (07/22/2020 10:19 AM CDT) CHAPINCITO HEp-2 IgG <1:80 <1:80 07/28/2020 2:54 PM CDT [employer] ([facility]) CHAPINCITO Interpretive Comment See Note 07/28/2020 2:54 PM CDT [facility] [employer] ([facility]) Comment: Antinuclear antibodies by IFA negative for [...] - 40 AU/mL 07/28/2020 2:54 PM CDT [employer] ([facility]) Comment: INTERPRETIVE INFORMATION: Scleroderma (Scl-70) (CASSIE) Ab, [...] testing for centromere, RNA polymerase III and U3-TRESTLEMAN, PM/Scl, or Th/To antibodies. RNA Polymerase 3 Antibody IgG 6 0 - 19 Units 07/28/2020 2:54 PM CDT [facility] ([facility]) Comment: INTERPRETIVE INFORMATION: RNA Polymerase III Antibody, [...] antibodies associated with SSc, including centromere, Scl-70, U3-TRESTLEMAN, PM/Scl, or Th/To. Ramos/TRESTLEMAN (CASSIE) Antibody IgG See Note 07/28/2020 2:54 PM CDT [facility] ([facility]) Comment: EFFECTIVE 03/25/2020 TEST/REFERENCE INTERVAL CHANGE Ramos/TRESTLEMAN (CASSIE) Antibody, Ig Units Due to reagent kit performance, an alternate kit has been validated and implemented by [facility]. ??This semi-quantitative enzyme-linked immunosorbent assay (DIANA) detects IgG antibody to the Sm/TRESTLEMAN complex. The following Reference Interval applies to this result: 19 Units or less ?Negative 20 to 39 Units ?Weak Positive 40 to 80 Units ?Moderate Positive 81 Units or greater ? Strong Positive Ramos/TRESTLEMAN antibodies are frequently seen in patients with mixed connective tissue disease (MCTD) and are also associated with other systemic autoimmune rheumatic diseases (SARDs) such as systemic lupus erythematosus (SLE), systemic sclerosis, and myositis. Antibodies targeting the Ramos/TRESTLEMAN antigenic complex also recognize Ramos antigens, therefore, the Ramos antibody response must be considered when interpreting these results. PM/Scl 100 Antibody IgG Negative Negative 07/28/2020 2:54 PM CDT [facility] ([facility]) Comment: INTERPRETIVE INFORMATION: PM/Scl-100 Antibody, IgG by [...] developed and its performance characteristics determined by [employer]. It has not been cleared or approved by the US Food and Drug Administration. This test was performed in a CLIA certified laboratory and is intended for clinical purposes. Fibrillarin (U3 TRESTLEMAN) Antibody IgG Negative Negative 07/28/2020 2:54 PM CDT [facility] ([facility]) Comment: Interpretive Information: Fibrillarin (U3 TRESTLEMAN) Antibody, IgG The presence of fibrillarin (U3-TRESTLEMAN) IgG antibodies in association with an CHAPINCITO [...] a multi-ethnic cohort of SSc patients (n=98), U3-TRESTLEMAN antibodies detected by immunoblot had an agreement of 98.9 percent with the gold standard immunoprecipitation (IP) assay. Approximately 71 percent (5/7) of the borderline U3-TRESTLEMAN results with CHAPINCITO nucleolar pattern in this cohort were IP negative. This test was developed and its performance characteristics determined by [employer]. It has not been cleared or approved by the [place] Food and Drug Administration. This test was performed in a CLIA certified laboratory and is intended for clinical purposes. Performed By: [place] [address] Service Architect: Vandana Otero MD Blood BLOOD SPECIMEN / Unknown Lab Venipuncture / Unknown 07/22/2020 10:19 AM CDT 07/22/2020 11:16 AM CDT Ankur Osorio MD LAB - SEROLOGY ORDER [employer] [facility]) [address] [place] [address], [facility] * SS-B (SJOGREN'S) ANTIBODY (07/22/2020 10:19 AM CDT) SS-B Antibody 0 0 - 40 AU/mL 07/25/2020 8:19 AM CDT [facility] ([facility]) Comment: INTERPRETIVE INFORMATION: SSB (La) (CASSIE) Ab, [...] (PSS) also have this antibody. Performed By: [facility] [employer] [address] [place] [address] Service Architect: Vandana Otero MD Blood BLOOD SPECIMEN / Unknown Lab Venipuncture / Unknown 07/22/2020 10:19 AM CDT 07/22/2020 11:16 AM CDT Ankur Osorio MD LAB - CHEMISTRY ORDE GADIEL [facility] ([facility]) [address] [place] [address] * URINALYSIS REFLEX TO MICROSCOPIC NO CULTURE (07/22/2020 10:19 AM CDT) Color UA Straw Straw, Yellow 07/22/2020 11:01 AM [facility] Clarity UA Clear Clear 07/22/2020 11:01 AM [facility] Specific [place] UA 1.011 1.005 - 1.030 07/22/2020 11:01 AM [facility] pH UA 5.0 5.0 - 8.0 pH 07/22/2020 11:01 AM [facility] Protein UA Negative Negative 07/22/2020 11:01 AM [facility] Glucose UA Negative Negative 07/22/2020 11:01 AM [facility] Ketone UA Negative Negative 07/22/2020 11:01 AM [facility] Bilirubin UA Negative Negative 07/22/2020 11:01 AM [facility] Blood UA Negative Negative 07/22/2020 11:01 AM [facility] Nitrite UA Negative Negative 07/22/2020 11:01 AM [facility] Leukocyte Esterase Negative Negative 07/22/2020 11:01 AM [facility] Urobilinogen UA Negative Negative mg/dL 07/22/2020 11:01 AM [facility] RBC UA 3-5 None Seen, 0-2, 3-5 /HPF 07/22/2020 11:01 AM [facility] WBC UA 0-5 None Seen, 0-5 /HPF 07/22/2020 11:01 AM [facility] Squamous Epithelial Cells UA 0-2 None Seen, 0-2, 3-5 /HPF 07/22/2020 11:01 AM [facility] Mucus UA 1+ /LPF 07/22/2020 11:01 AM [facility] Urine URINE SPECIMEN OBTAINED BY CLEAN CATCH PROCEDURE / Unknown Collection / Unknown 07/22/2020 10:19 AM CDT 07/22/2020 10:37 AM CDT Narrative [facility] - 07/22/2020 11:01 AM CDT Ankur Osorio MD LAB - URINALYSIS ORD ERABLES [facility] [address] [place] [address], [facility] [phone] * VITAMIN D 25-HYDROXY D2+D3 (07/22/2020 10:19 AM CDT) Vitamin D, 25 Hydroxy D2 and D3 Total 51.5 30.0 - 80.0 ng/mL 07/26/2020 9:40 PM CDT [facility] ([facility]) Comment: INTERPRETIVE INFORMATION: 25-HydroxyVitamin D2 and D3, [...] reference intervals for this test in the [employer] [facility] Test Directory ([place]). This test was developed and its performance characteristics determined by [employer]. It has not been cleared or approved by the US Food and Drug Administration. This test was performed in a CLIA certified laboratory and is intended for clinical purposes. U.S. Patent No. [id number] Performed By: [facility] [employer] [address] [place] [address] Service Architect: Vandana Otero MD Vitamin D, 25 Hydroxy D2 <1.0 ng/mL 07/26/2020 9:40 PM CDT [facility]) Vitamin D, 25 Hydroxy D3 51.5 ng/mL 07/26/2020 9:40 PM CDT [facility]) Blood BLOOD SPECIMEN / Unknown Lab Venipuncture / Unknown 07/22/2020 10:19 AM CDT 07/22/2020 10:36 AM CDT Ankur Osorio MD LAB - CHEMISTRY RAMILA RAMESH [address] * T4 FREE (07/22/2020 10:19 AM CDT) T4 Free 0.9 0.7 - 1.5 ng/dL 07/22/2020 12:35 PM CDT [facility] Blood BLOOD SPECIMEN / Unknown Lab Venipuncture / Unknown 07/22/2020 10:19 AM CDT 07/22/2020 10:37 AM CDT Ankur Osorio MD LAB - CHEMISTRY RAMILA RAMESH [address] [address], [facility] [phone] * TSH (07/22/2020 10:19 AM CDT) Pathologist [facility] TSH 2.013 0.350 - 4.940 uIU/mL 07/22/2020 12:35 PM CDT [facility] Blood BLOOD SPECIMEN / Unknown Lab Venipuncture / Unknown 07/22/2020 10:19 AM CDT 07/22/2020 10:37 AM CDT Ankur Osorio MD LAB - CHEMISTRY RAMILA RAMESH Performing Organization Address City/[facility]/ZIP Co de Phone Number [facility] [address] [address], [facility] [phone] * THYROGLOBULIN ANTIBODY (07/22/2020 10:19 AM CDT) Thyroglobulin Antibody <0.9 0.0 - 4.0 IU/mL 07/24/2020 2:22 AM CDT [facility] [employer] ([facility]) Comment: INTERPRETIVE INFORMATION: Thyroglobulin Antibody ? A value of 4.0 IU/mL or less indicates a negative result for thyroglobulin antibodies. The Thyroglobulin Antibody assay is being performed using the [employer] Access DxI method. Performed By: [employer] [address] [place] [address] Service Architect: Vandana Otero MD Blood BLOOD SPECIMEN / Unknown Lab Venipuncture / Unknown 07/22/2020 10:19 AM CDT 07/22/2020 11:16 AM CDT Ankur Osorio MD LAB - CHEMISTRY RAMILA RAMESH Performing Organization Address City/[facility] Co de Phone Number [employer] [facility]) [address] * THYROID PEROXIDASE ANTIBODY (07/22/2020 10:19 AM CDT) Thyroid Peroxidase TPO Antibody 0.5 0.0 - 9.0 IU/mL 07/24/2020 4:20 AM CDT [employer] ([facility]) Comment: Performed By: [employer] [address] [place] [address] Service Architect: Vandana Otero MD Blood BLOOD SPECIMEN / Unknown Lab Venipuncture / Unknown 07/22/2020 10:19 AM CDT 07/22/2020 11:16 AM CDT Ankur Osorio MD LAB - CHEMISTRY RAMILA RAMESH [facility] ([facility]) [address] [place] [address], [facility] * ERYTHROCYTE SEDIMENTATION RATE (07/22/2020 10:19 AM CDT) Erythrocyte Sedimentation Rate Westergren 11 0 - 20 MM/HR 07/22/2020 12:34 PM CDT [facility] Blood BLOOD SPECIMEN / Unknown Lab Venipuncture / Unknown 07/22/2020 10:19 AM CDT 07/22/2020 10:30 AM CDT Ankur Osorio MD LAB - HEMATOLOGY JIN STACY Performing Organization Address City/[facility]/ZIP Co de Phone Number [facility] [address] [place] [address], [facility] [phone] * C-REACTIVE PROTEIN (07/22/2020 10:19 AM CDT) C-Reactive Protein <0.5 <=0.5 mg/dL 07/22/2020 12:35 PM CDT [facility] Blood BLOOD SPECIMEN / Unknown Lab Venipuncture / Unknown 07/22/2020 10:19 AM CDT 07/22/2020 10:37 AM CDT Ankur Osorio MD LAB - CHEMISTRY RAMILA RAMESH [facility] [address] [place] [address], [place] [phone] * (ABNORMAL) COMPREHENSIVE METABOLIC PANEL (07/22/2020 10:19 AM CDT) BUN 15 7 - 26 mg/dL 07/22/2020 12:35 PM CDT [facility] Creatinine 0.90 0.56 - 0.96 mg/dL 07/22/2020 12:35 PM [facility] Sodium 145 136 - 145 mmol/L 07/22/2020 12:35 PM [facility] Potassium 3.9 3.5 - 4.5 mmol/L 07/22/2020 12:35 PM [facility] Chloride 112(H) 98 - 107 mmol/L 07/22/2020 12:35 PM [facility] CO2 25 22 - 29 mmol/L 07/22/2020 12:35 PM [facility] Glucose 94 70 - 115 mg/dL 07/22/2020 12:35 PM [facility] Calcium 9.2 8.4 - 10.2 mg/dL 07/22/2020 12:35 PM [facility] Protein Total 7.1 6.0 - 8.3 g/dL 07/22/2020 12:35 PM [facility] Albumin 4.2 3.4 - 5.0 g/dL 07/22/2020 12:35 PM [facility] Bilirubin Total 0.3 0.2 - 1.2 mg/dL 07/22/2020 12:35 PM [facility] Alkaline Phosphatase 55 40 - 150 U/L 07/22/2020 12:35 PM [facility] ALT 17 5 - 55 U/L 07/22/2020 12:35 PM [facility] AST 12 5 - 34 U/L 07/22/2020 12:35 PM [facility] Anion Gap 12 8 - 18 07/22/2020 12:35 PM [facility] BUN/Creatinine Ratio 17 7 - 23 07/22/2020 12:35 PM [facility] Osmolality Calculated 301(H) 270 - 300 mOsm/kg 07/22/2020 12:35 PM [facility] Albumin/Globulin Ratio 1.4 1.1 - 2.3 07/22/2020 12:35 PM [facility] eGFR by CKD-EPI 85(L) >=90 mL/min/1.7 3 m2 07/22/2020 12:35 PM [facility] Blood BLOOD SPECIMEN / Unknown Lab Venipuncture / Unknown 07/22/2020 10:19 AM CDT 07/22/2020 10:37 AM CDT Ankur Osorio MD LAB - CHEMISTRY RAMILA RAMESH [address] [address], [facility] [phone] * CK BLOOD (07/22/2020 10:19 AM CDT) Pathologist [facility] CK Total 74 30 - 200 U/L 07/22/2020 12:35 PM [facility] Blood BLOOD SPECIMEN / Unknown Lab Venipuncture / Unknown 07/22/2020 10:19 AM CDT 07/22/2020 10:37 AM CDT Ankur Osorio MD LAB - CHEMISTRY RAMILA RAMESH Performing Organization Address [facility]/ZIP Co de Phone Number [address] [address], [facility] [phone] * (ABNORMAL) CBC WITH DIFFERENTIAL (07/22/2020 10:19 AM CDT) [facility] WBC 6.7 3.5 - 10.5 10? 3 /uL 07/22/2020 10:50 AM [facility] RBC 4.78 3.80 - 5.20 10? 6 /uL 07/22/2020 10:50 AM [facility] Hemoglobin 14.2 12.0 - 15.6 g/dL 07/22/2020 10:50 AM [facility] Hematocrit 43.5 35.0 - 45.0 % 07/22/2020 10:50 AM [facility] MCV 91.0 80.7 - 98.3 fL 07/22/2020 10:50 AM [facility] MCH 29.7 26.7 - 34.0 pg 07/22/2020 10:50 AM [facility] MCHC 32.6 30.8 - 35.9 g/dL 07/22/2020 10:50 AM [facility] Platelet Count 263 150 - 400 10? 3 /uL 07/22/2020 10:50 AM [facility] RDW-SD 39.6 36.0 - 50.0 fL 07/22/2020 10:50 AM [facility] RDW-CV 11.9 11.2 - 14.8 % 07/22/2020 10:50 AM [facility] MPV 9.5 9.4 - 12.9 fL 07/22/2020 10:50 AM [facility] nRBC Absolute 0.00 0 10? 3 /uL 07/22/2020 10:50 AM [facility] nRBC Auto 0.0 0 /100 WBC 07/22/2020 10:50 AM [facility] Neutrophils % 52.7 35.0 - 70.0 % 07/22/2020 10:50 AM [facility] Lymphocytes % 41.1 20.0 - 43.0 % 07/22/2020 10:50 AM [facility] Monocytes % 4.3(L) 5.0 - 13.0 % 07/22/2020 10:50 AM [facility] Eosinophils % 1.2 0.0 - 6.0 % 07/22/2020 10:50 AM [facility] Basophil % 0.6 0.0 - 2.0 % 07/22/2020 10:50 AM [facility] Neutrophils Absolute 3.5 1.6 - 7.0 10? 3 /uL 07/22/2020 10:50 AM [facility] Lymphocyte Absolute 2.8 1.1 - 3.9 10? 3 /uL 07/22/2020 10:50 AM [facility] Monocytes Absolute 0.29 0.26 - 1.07 10? 3 /uL 07/22/2020 10:50 AM [facility] Eosinophils Absolute 0.08 0.00 - 0.47 10? 3 /uL 07/22/2020 10:50 AM [facility] Basophils Absolute 0.04 0.00 - 0.08 10? 3 /uL 07/22/2020 10:50 AM [facility] Immature Granulocytes % 0.1 0.0 - 1.0 % 07/22/2020 10:50 AM [facility] Immature Granulocytes Absolute 0.01 07/22/2020 10:50 AM CDT [facility] Blood BLOOD SPECIMEN / Unknown Lab Venipuncture / Unknown 07/22/2020 10:19 AM CDT 07/22/2020 10:30 AM CDT Ankur Osorio MD LAB - HEMATOLOGY ORD ERABLES Performing Organization Address City/[facility]/ZIP Co de Phone Number [facility] [address] [place] [address], [facility] [phone] * ALDOLASE (07/22/2020 10:19 AM CDT) Pathologist [facility] Aldolase 4.9 1.5 - 8.1 U/L 07/23/2020 7:04 PM CDT [employer] ([facility]) Comment: REFERENCE INTERVAL: Aldolase Access complete set of age- and/or gender-specific reference intervals for this test in the [employer] Laboratory Test Directory ([place]). Performed By: [employer] [address] [place] [address] Service Architect: Vandana Otero MD Blood BLOOD SPECIMEN / Unknown Lab Venipuncture / Unknown 07/22/2020 10:19 AM CDT 07/22/2020 11:16 AM CDT Ankur Osorio MD LAB - CHEMISTRY ORDE GADIEL Performing Organization Address City/[facility] Co de Phone Number [facility] [employer] [facility]) [address] * HEPATITIS C ANTIBODY (07/22/2020 10:19 AM CDT) Pathologist [facility] Hepatitis C Antibody Non-react kalen Non-reac tive 07/22/2020 12:35 PM CDT [facility] Comment:Hepatitis C Antibody screen indicates [...] Ankur Osorio MD LAB - CHEMISTRY ORDJudy ADENNADEEN [address] [address], [facility] [phone] * HEPATITIS B SURFACE ANTIGEN W RFLX CONFIRMATION (07/22/2020 10:19 AM CDT) Hepatitis B Virus Surface Antigen Non-reacti ve Non-reacti ve 07/22/2020 12:35 PM CDT [facility] Blood BLOOD SPECIMEN / Unknown Lab Venipuncture / Unknown 07/22/2020 10:19 AM CDT 07/22/2020 10:37 AM CDT Ankur Osorio MD LAB - CHEMISTRY RAMILA RAMESH Performing Organization Address [facility]/ZIP Co de Phone Number [address] [address], [facility] [phone] * (ABNORMAL) LUPUS ANTICOAGULANT PANEL (07/22/2020 10:19 AM CDT) APTT 31.9 23.0 - 38.4 Seconds 07/23/2020 9:29 AM [facility] PT 11.9(L) 12.1 - 14.8 Seconds 07/23/2020 9:29 AM [facility] INR 0.9 See Comment 07/23/2020 9:29 AM [facility] [place] Buffer 58.2 Seconds 021 9:29 AM [facility] [place] Phospholipid 50.8 Seconds 07/23/2020 9:29 AM [facility] [place] Delta 7.4 <8.0 Seconds 07/23/2020 9:29 AM [facility] Interpretation [place] Negative 07/23/2020 9:29 AM [facility] Comment:Up to 15-20% of mikhail ents [...] Osorio MD LAB - HEMATOLOGY ORD ERABLES [address] [address], [facility] [phone] * BETA-2 GLYCOPROTEIN 1 ANTIBODY IGA (07/22/2020 10:19 AM CDT) Beta-2 Glycoprotein Antibody IgA 6 0 - 20 ESA 07/25/2020 2:10 AM CDT [facility] [employer] [facility]) Comment: Performed By: [employer] [address] [place] [address] Service Architect: Vandana Otero MD Blood BLOOD SPECIMEN / Unknown Lab Venipuncture / Unknown 07/22/2020 10:19 AM CDT 07/22/2020 11:16 AM CDT Ankur Osorio MD LAB - SEROLOGY ORDER GRECIA Performing Organization Address [facility] Co de Phone Number [facility]) [address] [place] [address] * RAMOS/TRESTLEMAN (CASSIE) ANTIBODY IGG (07/22/2020 10:19 AM CDT) Ramos/TRESTLEMAN (CASSIE) Antibody IgG See Note 07/27/2020 3:44 PM CDT [facility] [employer] ([facility]) Comment: EFFECTIVE 03/25/2020 TEST/REFERENCE INTERVAL CHANGE Ramos/TRESTLEMAN (CASSIE) Antibody, Ig Units Due to reagent kit performance, an alternate kit has been validated and implemented by [facility]. ??This semi-quantitative enzyme-linked immunosorbent assay (DIANA) detects IgG antibody to the Sm/TRESTLEMAN complex. The following Reference Interval applies to this result: 19 Units or less ?Negative 20 to 39 Units ?Weak Positive 40 to 80 Units ?Moderate Positive 81 Units or greater ? Strong Positive Ramos/TRESTLEMAN antibodies are frequently seen in patients with mixed connective tissue disease (MCTD) and are also associated with other systemic autoimmune rheumatic diseases (SARDs) such as systemic lupus erythematosus (SLE), systemic sclerosis, and myositis. Antibodies targeting the Ramos/TRESTLEMAN antigenic complex also recognize Ramos antigens, therefore, the Ramos antibody response must be considered when interpreting these results. Performed By: [employer] [address] [place] [address] Service Architect: Vandana Otero MD Blood BLOOD SPECIMEN / Unknown Lab Venipuncture / Unknown 07/22/2020 10:19 AM CDT 07/22/2020 11:16 AM CDT Ankur Osorio MD LAB - CHEMISTRY RAMILA RAMESH [facility] ([facility]) [address] [place] [address], [facility] * RAMOS (SM) ANTIBODY CASSIE (07/22/2020 10:19 AM CDT) [facility] Ramos (CASSIE) Antibody 0 0 - 40 AU/mL 07/25/2020 8:19 AM CDT [facility] [employer] ([facility]) Comment: INTERPRETIVE INFORMATION: Ramos (CASSIE) Antibody, IgG ??29 AU/mL or Less ............. Negative ??30 - 40 AU/mL ................ Equivocal ??41 AU/mL or Greater .......... Positive Ramos antibody is highly specific (greater than 90 percent) for systemic lupus erythematosus (SLE) but only occurs in 30-35 percent of SLE cases. The presence of antibodies to Ramos has variable associations with SLE clinical manifestations. Performed By: [employer] [address] [place] [address] Service Architect: Vandana Otero MD Blood BLOOD SPECIMEN / Unknown Lab Venipuncture / Unknown 07/22/2020 10:19 AM CDT 07/22/2020 10:37 AM CDT Ankur Osorio MD LAB - CHEMISTRY RAMILA RAMESH [address] * RHEUMATOID FACTOR BLOOD QUANTITATIVE (07/22/2020 10:19 AM CDT) Rheumatoid Factor <15 <30 IU/mL 07/22/2020 1:47 PM CDT [facility] Rheumatoid Factor Screen Negative Negative 07/22/2020 1:47 PM CDT [facility] Blood BLOOD SPECIMEN / Unknown Lab Venipuncture / Unknown 07/22/2020 10:19 AM CDT 07/22/2020 10:37 AM CDT Ankur Osorio MD LAB - CHEMISTRY RAMILA ARMESH [address] [address], [facility] [phone] * CYCLIC CITRULLINATED PEPTIDE(CCP) AB IGG (07/22/2020 10:19 AM CDT) CCP Antibody IgG <0.5 <5.0 U/mL 07/22/2020 2:13 PM CDT [facility] Blood BLOOD SPECIMEN / Unknown Lab Venipuncture / Unknown 07/22/2020 10:19 AM CDT 07/22/2020 10:37 AM CDT Ankur Osorio MD LAB - CHEMISTRY RAMILA RAMESH [address] [address], [facility] [phone] * CHROMATIN ANTIBODY (07/22/2020 10:19 AM CDT) Chromatin Antibody 2 0 - 19 Units 07/25/2020 1:51 AM CDT [employer] ([facility]) Comment: INTERPRETIVE INFORMATION: Chromatin Antibody, IgG ??19 Units or less: Negative ??20 - 60 Units: Moderate Positive ??61 Units or greater: Strong Positive The presence of anti-chromatin antibodies may be useful in the diagnosis of systemic lupus erythematosus (SLE) or drug-induced lupus (DIL) and have been reported to be predictive of lupus nephritis, especially when antibody levels are high. Performed By: [employer] [address] [place] [address] Service Architect: Vandana Otero MD Blood BLOOD SPECIMEN / Unknown Lab Venipuncture / Unknown 07/22/2020 10:19 AM CDT 07/22/2020 11:16 AM CDT Ankur Osorio MD LAB - SEROLOGY ORDER GRECIA [employer] ([facility]) [address] [place] [address], [facility] * DNA ANTIBODY DOUBLE STRANDED (07/22/2020 10:19 AM CDT) Pathologist [facility] dsDNA Antibody 2 0 - 24 IU 07/24/2020 6:06 PM CDT [facility] [employer] ([facility]) Comment: INTERPRETIVE INFORMATION: Double-Stranded DNA (dsDNA) Ab [...] recommendations for testing may be found at http://www.plistalt.com/Topics/AutoimmuneDz/ConnectiveTissueDz/i ndex.html. Performed By: [facility] [address] [place] [address] Service Architect: Vandana Otero MD Blood BLOOD SPECIMEN / Unknown Lab Venipuncture / Unknown 07/22/2020 10:19 AM CDT 07/22/2020 11:16 AM CDT Ankur Osorio MD LAB - HEMATOLOGY ORD ERABLES [facility] ([facility]) [address] [place] [address] * COMPLEMENT C4 (07/22/2020 10:19 AM CDT) Complement C4 28 15 - 57 mg/dL 07/22/2020 12:35 PM CDT [facility] Blood BLOOD SPECIMEN / Unknown Lab Venipuncture / Unknown 07/22/2020 10:19 AM CDT 07/22/2020 10:37 AM CDT Ankur Osorio MD LAB - SEROLOGY ORDER GRECIA Performing Organization Address City/[facility]/ZIP Co de Phone Number [address] [address], [place] [phone] * COMPLEMENT C3 (07/22/2020 10:19 AM CDT) Complement C3 116 82 - 193 mg/dL 07/22/2020 12:35 PM CDT [facility] Blood BLOOD SPECIMEN / Unknown Lab Venipuncture / Unknown 07/22/2020 10:19 AM CDT 07/22/2020 10:37 AM CDT Ankur Osorio MD LAB - CHEMISTRY ORDE RABLES Performing Organization Address City/[facility]/ZIP Co de Phone Number [address] [address], [place] [phone] * HAYDE-1 ANTIBODY (07/22/2020 10:19 AM CDT) Hayde-1 Antibody IgG 1 0 - 40 AU/mL 07/24/2020 6:53 PM CDT [facility] [employer] ([facility]) Comment: INTERPRETIVE INFORMATION: ??Hayde-1 Antibody, IgG ??29 AU/mL or less.........Negative ??30-40 AU/mL..............Equivocal ??41 AU/mL or greater......Positive Presence of Hayde-1 (antihistidyl transfer RNA [t-RNA] synthetase) antibody is associated with polymyositis and may also be seen in patients with dermatomyositis. Hayde-1 antibody is associated with pulmonary involvement (interstitial lung disease), Raynaud phenomenon, arthritis, and pump mechanic's hands (implicated in antisynthetase syndrome). Performed By: [employer] [address] [place] [address] Service Architect: Vandana Otero MD Blood BLOOD SPECIMEN / Unknown Lab Venipuncture / Unknown 07/22/2020 10:19 AM CDT 07/22/2020 11:16 AM CDT Ankur Osorio MD LAB - CHEMISTRY RAMILA RAMESH [facility] [employer] [facility]) [address] [place] [address], [facility] * CARDIOLIPIN ANTIBODY IGM (07/22/2020 10:19 AM CDT) Cardiolipin Antibody IgM <10 0 - 12 MPL 07/24/2020 5:38 PM CDT [facility] [employer] ([facility]) Comment: INTERPRETIVE INFORMATION: Anti-Cardiolipin IgM 0-12 MPL: [...] other criteria phospholipid antibody tests. Performed By: [employer] [address] [place] [address] Service Architect: Vandana Otero MD Blood BLOOD SPECIMEN / Unknown Lab Venipuncture / Unknown 07/22/2020 10:19 AM CDT 07/22/2020 11:16 AM CDT Ankur Osorio MD LAB - SEROLOGY ORDER GRECIA Performing Organization Address [facility] de Phone Number [email or web address] [facility]) [address] [place] [address] * CARDIOLIPIN ANTIBODY IGA (07/22/2020 10:19 AM CDT) Cardiolipin Antibody IgA <10 0 - 11 APL 07/24/2020 5:38 PM CDT [employer] ([facility]) Comment: INTERPRETIVE INFORMATION: Cardiolipin Antibodies, IgA 0-11 APL: Negative 12-19 APL: Indeterminate 20-80 APL: Low to Moderately ??Positive 81 APL or above: High Positive Performed By: [employer] [address] [place] [address] Service Architect: Vandana Otero MD Blood BLOOD SPECIMEN / Unknown Lab Venipuncture / Unknown 07/22/2020 10:19 AM CDT 07/22/2020 11:16 AM CDT Ankur Osorio MD LAB - SEROLOGY ORDER GRECIA Performing Organization Address [facility] Co de Phone Number [email or web address] [facility]) [address] [place] [address] * CARDIOLIPIN ANTIBODY IGG (07/22/2020 10:19 AM CDT) Cardiolipin Antibody IgG <10 0 - 14 GPL 07/24/2020 5:38 PM CDT [email or web address] ([facility]) Comment: INTERPRETIVE INFORMATION: Anti-Cardiolipin IgG Ab 0-14 [...] other criteria phospholipid antibody tests. 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
--- OUTSIDE RECORDS SUMMARY | 2024-03-02 05:36 | XMS_ITS | Encounter Summary ---
Author Organization [facility] Address [address] [facility] [place] [address] Care Team Providers Care Accounts Receivable Specialist Name Role Phone Maxim Masterson MD Primary Care Provider [phone] Reason for Referral * Radiology Services (Routine) - Closed Specialty Diagnoses / Procedures Referred By Contac t Referred To Contact CT Scan Diagnoses CLERICAL SPECIALIST (ventriculoperitoneal) shunt status Procedures CT HEAD WO CONTRAST Arnoldo Robertson MD [address] [place] [address] [facility] [address] [place] [address] Referral ID Status Reason Start Date Expiration Date Visits Re quested Visits Authorized [id number] Closed 04/08/2019 05/23/2019 1 1 Reason for Visit * Radiology Services (Routine) - Closed Specialty Diagnoses / Procedures Referred By Reji nolan Referred To Contact CT Scan Diagnoses CLERICAL SPECIALIST (ventriculoperitoneal) shunt status Procedures CT HEAD WO CONTRAST Arnoldo Robertson MD [address] [place] [address] [facility] [address] [place] [address] Referral ID Status Reason Start Date Expiration Date Visits Re quested Visits Authorized [id number] Closed 04/08/2019 05/23/2019 1 1 Encounter Details Date Type Department Care Team (Latest Contact Info) Description 05/22/2019 9:24 AM CDT - 05/22/2019 11:59 PM CDT Hospital Encounter [facility] CAT SCAN [address] [place] [address] Arnoldo Robertson MD [address] [place] [address] Discharge Disposition: Home or Self Care Social [...] Procedure Name Priority Date/Time Associated Diagnosis Comments CT HEAD WO CONTRAST Routine 05/22/2019 9 :32 AM CDT CLERICAL SPECIALIST (ventriculoperitone al) shunt status documented in this encounter Results * CT HEAD WO CONTRAST (05/22/2019 9:32 AM CDT) Anatomical Region Laterality Modality Head Computed Tomogra phy 05/22/2019 10:5 5 AM CDT Impressions 05/22/2019 2:52 PM CDT IMPRESSION: 1.No acute intracranial hemorrhage, mass effect or midline shift. 2.Unchanged position of right frontal approach ventriculostomy catheter with decompressed ventricular system. Report dictated by Ralf Good MD (radiology services manager). This report was approved ??by Ralf Good ?? on 05/22/2019 2:52 PM . I, Dr. MATHEUS BARAHONA have personally reviewed and interpreted this examination/study. This report was electronically signed by MATHEUS BARAHONA ??on 05/22/2019 2:52 PM . Narrative 05/22/2019 2:[address] HEAD WO CONTRAST EXAMINATION: 1.Computed tomography (CT) of the head without contrast DATE: 05/22/2019 9:33 AM HISTORY: status of CLERICAL SPECIALIST shunt TECHNIQUE: CT of the head was [...] DATE: 05/22/2019 9:33 AM HISTORY: status of CLERICAL SPECIALIST shunt TECHNIQUE: CT of the head was [...] system. Report dictated by Ralf Good MD (radiology services manager). This report was approved by Ralf Good on 05/22/2019 2:52 PM . I, Dr. MATHEUS BARAHONA have personally reviewed and interpreted this examination/study. This report was electronically signed by MATHEUS BARAHONA on05/22/2019 2:52 PM . Arnoldo Robertson MD CT ORDERABLES documented in this encounter Visit Diagnoses Diagnosis CLERICAL SPECIALIST (ventriculoperitoneal) shunt status Presence of cerebrospinal fluid drainage device documented in this encounter Care Teams Accounts Receivable Specialist Relationship Specialty Start Date End Date Maxim Masterson MD [address] [place] [address] PCP - General 09/27/16 documented as of this encounter
--- OUTSIDE RECORDS SUMMARY | 2024-03-02 05:36 | XMS_ITS | Encounter Summary ---
Author Organization [facility] Address [address] [facility] [place] [address] Care Team Providers Care Ross Lift Operator Name Role Phone Maxim Masterson MD Primary Care Provider [phone] Reason for Visit * Reason Onset Date Comments Reminder Call 10/16/2018 clld to confirm appt Home number not valid, clld E/C spoke with Abraham, confirmed appt and details Encounter Details Date Type Department Care Team (Late st Contact Info) Description 10/16/2018 Telephone [facility] [address] [place] [address] Arnoldo Robertson MD [facility] [address] Reminder Call (clld to confirm appt Home number not valid, clld E/C spoke with Abraham, confirmed appt and details ) Social History Tobacco Use Types Packs/Day Years [...] encounter Miscellaneous Notes * Telephone Encounter - Lakesha Childers - 10/16/2018 2:59 PM CDT clld to confirm appt Home number not valid, lucerod E/C spoke with Abraham, confirmed appt and details documented in this encounter Plan of Treatment Not on file documented as of this encounter Visit Diagnoses Not on filedocumented in this encounter Care Teams Ross Lift Operator Relationship Specialty Start Date End Date Maxim Masterson MD [address] [place] [address] PCP - General 09/27/16 documented as of this encounter
--- OUTSIDE RECORDS SUMMARY | 2024-03-02 05:36 | XMS_ITS | Encounter Summary ---
Author Organization [facility] Address [facility] [facility] [place] [address] [place] [address] Care Team Providers Care Purchasing Administrator Name Role Phone Unavailable Primary Care Provider Unavailabl e Encounter Details Date Type Department Care Team (Late st Contact Info) Description 03/15/[address] 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
--- OUTSIDE RECORDS SUMMARY | 2024-03-02 05:36 | XMS_ITS | Encounter Summary ---
Author Organization [facility] Address [address] [facility] [place] [address] Care Team Providers Care Horse Exerciser Name Role Phone Maxim Masterson MD Primary Care Provider [phone] Reason for Visit * Reason Onset Date Comments Reminder Call 10/16/2018 arely answer ed and stated not her number please remove Encounter Details Date Type Department Care Team (Late st Contact Info) Description 10/16/2018 Telephone [facility] [address] [place] [address] Arnoldo Robertson MD [address] [address] Reminder Call (arely answered and stated not her number please remove ) Social History Tobacco Use Types Packs/Day [...] Telephone Encounter - Lakesha Childers - 10/16/2018 2:56 PM CDT arely answered and stated not her number please remove documented in this encounter Plan of Treatment Not on file documented as of this encounter Visit Diagnoses Not on filedocumented in this encounter Care Teams Horse Exerciser Relationship Specialty Start Date End Date Maxim Masterson MD [address] [place] [address] PCP - General 09/27/16 documented as of this encounter
--- OUTSIDE RECORDS SUMMARY | 2024-03-02 05:36 | XMS_ITS | Encounter Summary ---
Author Organization [facility] Address [address] [facility] [place] [address] Care Team Providers Care Public Health Analyst Name Role Phone Maxim Masterson MD Primary Care Provider [phone] Reason for Visit * Reason Onset Date Comments Future Appointment 08/07/2018 Encounter Details Date Type Department Care Team (Late st Contact Info) Description 08/07/2018 Telephone [facility] [address] [place] [address] Brendan Campos Future Appointment Social History Tobacco Use Types [...] encounter Miscellaneous Notes * Telephone Encounter - Brendan Campos - 08/07/2018 3:13 PM CDT ----- Message from Sophie Hanley sent at 08/07/2018 3:08 PM CDT ----- Can you please call patient to follow up with Dr. Robertson and bring her CT head CD and report from opthalmology? Thanks, Sophie Glover voice message for patient to call office to schedule appointment with Marcelo Fisher. documented in this encounter Plan of Treatment Not on file documented as of this encounter Visit Diagnoses Not on filedocumented in this encounter Care Teams Public Health Analyst Relationship Specialty Start Date End Date Maxim Masterson MD [address] [place] [address] PCP - General 09/27/16 documented as of this encounter
--- OUTSIDE RECORDS SUMMARY | 2024-03-02 05:36 | XMS_ITS | Encounter Summary ---
Author Organization [facility] Address [facility] [place] [address] [place] [address] Care Team Providers Care Role Player Name Role Phone Unavailable Primary Care Provider Unavailabl e Encounter Details Date Type Department Care Team (Late st Contact Info) Description 02/14/[address] 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
--- OUTSIDE RECORDS SUMMARY | 2024-03-02 05:36 | XMS_ITS | Encounter Summary ---
Author Organization [facility] Address [address] [facility] [address] [place] [address] Care Team Providers Care Avionics Integration Engineer Name Role Phone Maxim Masterson MD Primary Care Provider [phone] Encounter Details Date Type Department Care Team (Latest Contact Info) Description 02/01/2017 Hospital Outpatient Visit Historic [facility] [address] [place] [address] Discharge Disposition: Home or Self Care Social [...] Diagnosis Comments CT HEAD WO CONTRAST Routine 02/01/2017 8 :10 AM GAS TENDER documented in this encounter Results * CT HEAD WO CONTRAST (02/01/2017 8:10 AM GAS TENDER) Anatomical Region Laterality Modality Head Other Impressions 02/01/2017 11:51 AM GAS TENDER IMPRESSION: 1. Stable position of a right frontal approach ventricular catheter with unchanged nondilated ventricular system. This report was approved ??by Jr Webster M.D. ?? on 02/01/2017 11:01 AM . I, Dr. JINNY TUCKER M.D. have personally reviewed and interpreted this examination/study. This report was electronically signed by JINNY TUCKER M.D. ??on 02/01/2017 11:51 AM . Narrative 02/01/2017 11:51 AM GAS TENDER EXAMINATION: Computed tomography (CT) of the head without contrast HISTORY: Shunted hydrocephalus TECHNIQUE: CT of the head was performed without contrast according to standard protocol. FINDINGS: Comparison is made with a study from 09/28/2016. No acute intra- or extra-axial fluid collections are identified. Pneumocephalus has resolved. A right frontal approach ventricular catheter traverses the right lateral ventricle, and the ventricles remain nondilated. The basilar cisterns are patent. No mass effect or midline shift is seen. The obregon-white matter differentiation is normal. The visualized portions of the orbits, paranasal sinuses, and mastoids appear normal. No acute fracture is identified. Procedure Note Jinny Tucker MD - 05/18/2017 EXAMINATION: Computed tomography (CT) of the head without contrast HISTORY: Shunted hydrocephalus TECHNIQUE: CT of the head was performed without contrast according tostandard protocol. FINDINGS: Comparison is made with a study from 09/28/2016. No acute intra- or extra-axial fluid collections are identified.Pneumocephalus has resolved. A right frontal approach ventricular cathetertraverses the right lateral ventricle, and the ventricles remainnondilated. The basilar cisterns are patent. No mass effect or midline shift is seen. The obregon-white matterdifferentiation is normal. The visualized portions of the orbits,paranasal sinuses, and mastoids appear normal. No acute fracture isidentified. IMPRESSION IMPRESSION: 1. Stable position of a right frontal approach ventricular catheter withunchanged nondilated ventricular system. This report was approved by Jr Webster M.D. on 02/01/2017 11:01 AM. I, Dr. JINNY TUCKER M.D. have personally reviewed and interpreted thisexamination/study. This report was electronically signed by JINNY TUCKER M.D. on 02/01/201711:51 AM . Arnoldo Robertson MD CT ORDERABLES documented in this encounter Visit Diagnoses Diagnosis Presence of cerebrospinal fluid drainage device documented in this encounter Care Teams Avionics Integration Engineer Relationship Specialty Start Date End Date Maxim Masterson MD [address] [place], [place] [id number] PCP - General 09/27/16 documented as of this encounter
--- OUTSIDE RECORDS SUMMARY | 2024-03-02 05:36 | XMS_ITS | Clinical Summary ---
Author Organization [facility] Address [address] [place] [address]. 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 Gender Identity Not on file Sexual Orientation Not on file Last Filed Vital Signs Vital Sign Reading Time Taken Comments Blood Pressure 126/87 12/10/2014 3:26 PM CDT Pulse - - Temperature - - Respiratory Rate - - Oxygen Saturation - - Inhaled Oxygen Concentration - - Weight 93.4 kg (206 lb) 12/10/2014 3:26 PM CDT Height 172.7 cm (5' 8 ) 12/10/2014 3:26 PM CDT Body Mass Index 31.32 12/10/2014 3:26 PM CDT Plan of Treatment Health Maintenance Due Date Last Done Comments Cervical Cancer Screening Pap Smear (Age 30 to 64) Every 3 Years 1988 Annual Physical 1991 DTaP, Tdap and Td Vaccines (6 - Tdap) 1999 04/28/1992, 10/02/1990, 1988, Additional history exists Hepatitis C 2006 Cervical Cancer Screening Pap with HPV Testing (Age 30 to 64) Every 5 Years 2018 Cervical Cancer Screening with HPV 2018 COVID-19 Vaccine ( season) 2023 Influenza Adult (#1) 2023 Hepatitis B Vaccines Completed 09/24/1998, 04/23/1998, 03/26/1998 HPV Vaccines Aged Out No longer eligi ble based on patient's age to complete this topic Meningococcal Vaccine Aged Out No rodrigo lotus eligible based on patient's age to complete this topic Pneumococcal Vaccine: Pediatrics (0 to 5 Years) and At-Risk Patients (6 to 64 Years) Aged Out No longer eligible based on patient's age to complete this topic RSV Immunizations Under 20 Months Aged Out No longer eligible based on patient's age to complete this topic Insurance [place] Care Teams Financial Service Professional Relationship Specialty Start Date End Date Ravi Deng MD [address] [address] PCP - General FAMILY PRACTICE 12/22/20
--- OUTSIDE RECORDS SUMMARY | 2024-03-02 05:36 | XMS_ITS | Encounter Summary ---
Author Organization [facility] Address [facility] [facility]. 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
--- OUTSIDE RECORDS SUMMARY | 2024-03-02 05:36 | XMS_ITS | Encounter Summary ---
Author Organization [facility] Address [address] [facility] [place] [address] Care Team Providers Care Housing Officer Name Role Phone Maxim Masterson MD Primary Care Provider Reason for Referral * Radiology Services (Routine) - Closed Specialty Diagnoses / Procedures Referred By Contac t Referred To Contact CT Scan Diagnoses CAR DUMPER OPERATOR (ventriculoperitoneal) shunt status Procedures CT HEAD WO CONTRAST Arnoldo Robertson MD [address] [place] [address] [facility] [address] [place] [address] Referral ID Status Reason Start Date Expiration Date Visits Re quested Visits Authorized [id number] Closed 04/08/2019 05/23/2019 1 1 Reason for Visit * Reason Comments Follow-up CAR DUMPER OPERATOR SHUNT Encounter Details Date Type Department Care Team (Late st Contact Info) Description 10/17/2018 9:15 AM CDT Office Visit [facility] Neurosurgery [address] [place] [address] Arnoldo Robertson MD [address] [address] CAR DUMPER OPERATOR (ventriculoperitoneal ) shunt status (Primary Dx) Social History Tobacco Use Types Packs/Day Years Used Date Smoking Tobacco: Former Cigarettes Smokeless Tobacco: Never Tobacco Cessation:Counseling Given: No Alcohol Use Standard Drinks/Week Comments No 0 (1 standard drink = 0.6 oz pur e alcohol) Sex and Gender Information Value Date Recorded Sex Assigned at Not on file Gender Identity Not on file Sexual Orientation Not on file documented as of this encounter Last Filed Vital Signs Vital Sign Reading Time Taken Comments Blood Pressure 134/98 10/17/2018 9:15 AM CDT Pulse 62 10/17/2018 9:15 AM CDT Temperature 36.2 ??C (97.1 ??F) 10/17/2018 9:15 AM CD T Respiratory Rate - - Oxygen Saturation - - Inhaled Oxygen Concentration - - Weight 77.1 kg (170 lb) 10/17/2018 9:15 AM CDT Height 177.8 cm (5' 10 ) 10/17/2018 9:15 AM CDT Body Mass Index 24.39 10/17/2018 9:15 AM CDT documented in this encounter Patient Instructions * Patient Instructions* Sophie Hanley - 10/17/2018 10:57 AM CDT Start valve set at 1.5 Follow up in [address] head and shunt series For any questions please call Sophie [phone] documented in this encounter Progress Notes * Arnoldo Robertson MD - 10/19/2018 10:50 AM CDT Note from resident reviewed, edited, patient seen and examined, all images reviewed, and situation discussed with patient and any and all family present. For additional details please refer to communication to referring physician. * Mor Crespo MD - 10/17/2018 9:14 AM CDT Neurosurgery Clinic Progress Note Chief Complaint (CC): follow up HISTORY OF PRESENT ILLNESS (HPI): This patient is a 28 year old female with history of right ventriculoperitoneal (CAR DUMPER OPERATOR) shunt for idiopathic intracranial hypertension (IIH), that was last seen in clinic on 02/01/17. At that time, patient reported occasional bifrontal headaches that were unlikely to be related to a shunt malfunction due to stable head CT. Today, patient reports neck pain that radiates to the back of her head. She denies any vision changes, nausea, or vomiting. Patient visited her Sludge Control Operator 2 weeks ago and, per patient, he reported mild papilledema but did not do a dilated exam. Patient will go back to [facility] for a dilated exam soon. Past Medical History: Diagnosis Date ??? S/P CAR DUMPER OPERATOR shunt Past Surgical History: Procedure Laterality Date ??? Hysterectomy ??? NC EXPLORATORY OF ABDOMEN multiple RESEARCH AND DEVELOPMENT MANAGER surgeries Meds: No current outpatient medications on file. No current facility-administered medications for this visit. Allergies Allergen Reactions ??? Povidone Iodine Swelling ??? Shellfish Allergy Anaphylaxis Social History Tobacco Use ??? Smoking status: Former Smoker Packs/day: 1.00 ??? Smokeless tobacco: Never Used Substance Use Topics ??? Alcohol use: No Family: No family history on file. REVIEW OF SYSTEMS Pertinent items are noted in HPI. Cardiovascular: nil Pulmonary: nil Renal: nil GI: nil PHYSICAL EXAM BP 134/98 (BP SITE: LEFT ARM, BP POSITION: SITTING, BP CUFF SIZE: 11) Pulse 62 Temp 97.1 ??F (36.2 ??C) (Oral) Ht 5' 10 (1.778 m) Wt 170 lb (77.1 kg) BMI 24.39 kg/m2 General: NAD Cardiovascular: warm, well profused Respiratory: non-labored breathing Abdominal: S, NT, ND Integument: no lesions found Vascular: capillary refill <3 seconds Neuro: awake, oriented to name, hospital, and date, pupils equal and reactive to light, extraocularmovements intact, facial sensation intact bilaterally, face symmetric, hearing intact bilaterally, palate elevates symmetrically, tongue protrudes midline, no drift, dbpqsl-oovz-[id number] intact, motor strength 5/5 in all extremities, shunt valve pumps easily and refills quickly, checked at 2.0. RADIOLOGICAL REVIEW: Head CT (08/01/18): no acute intracranial process. Stable ventricular system compared to last scan. Shunt series (08/01/18): ventriculoperitoneal shunt without discontinuity suspected. Assessment/Plan: Yovana Simental is a 28 year old female with history CAR DUMPER OPERATOR shunt for IIH, that presents today for follow up. She reports neck pain radiating to the back of her head, likely related to tensional headache. Shunt valve was found at 2.0; turned back down to appropriate setting of 1.5. We will see her again in [address] and shunt series unless Sludge Control Operator reports worsening papilledema or she presents new visual changes. Mor Crespo MD 10/17/2018 11:31 AM documented in this encounter Plan of Treatment Not on file documented as of this encounter Results * CT HEAD WO CONTRAST (05/22/2019 9:32 AM CDT) Anatomical Region Laterality Modality Head Computed Tomogra phy 05/22/2019 10:5 5 AM CDT Impressions 05/22/2019 2:52 PM CDT IMPRESSION: 1.No acute intracranial hemorrhage, mass effect or midline shift. 2.Unchanged position of right frontal approach ventriculostomy catheter with decompressed ventricular system. Report dictated by Ralf Good MD (president ceo & founder). This report was approved ??by Ralf Good ?? on 05/22/2019 2:52 PM . I, Dr. MATHEUS BARAHONA have personally reviewed and interpreted this examination/study. This report was electronically signed by MATHEUS BARAHONA ??on 05/22/2019 2:52 PM . Narrative 05/22/2019 2:[address] HEAD WO CONTRAST EXAMINATION: 1.Computed tomography (CT) of the head without contrast DATE: 05/22/2019 9:33 AM HISTORY: status of CAR DUMPER OPERATOR shunt TECHNIQUE: CT of the head was [...] tissue abnormality is identified. Procedure Note Matheus aBrahona MD - 05/22/2019 CT HEAD WO CONTRAST EXAMINATION: 1.Computed tomography (CT) of the head without contrast DATE: 05/22/2019 9:33 AM HISTORY: status of CAR DUMPER OPERATOR shunt TECHNIQUE: CT of the head was [...] system. Report dictated by Ralf Good MD (president ceo & founder). This report was approved by Ralf Good on 05/22/2019 2:52 PM . I, Dr. MATHEUS BARAHONA have personally reviewed and interpreted this examination/study. This report was electronically signed by MATHEUS BARAHONA on05/22/2019 2:52 PM . Arnoldo Robertson MD CT ORDERABLES documented in this encounter Visit Diagnoses Diagnosis CAR DUMPER OPERATOR (ventriculoperitoneal) shunt status- Primary Presence of cerebrospinal fluid drainage device CAR DUMPER OPERATOR (ventriculoperitoneal) shunt status Presence of cerebrospinal fluid drainage device documented in this encounter Care Teams Housing Officer Relationship Specialty Start Date End Date Maxim Masterson MD [address] [place] [address] PCP - General 09/27/16 documented as of this encounter
--- OUTSIDE RECORDS SUMMARY | 2024-03-02 05:36 | XMS_ITS | Encounter Summary ---
Author Organization [facility] Address [facility] [facility] [place] [place] [address] [place] [address] Care Team Providers Care Geophysics Scientist Name Role Phone Unavailable Primary Care Provider Unavailabl e Encounter Details Date Type Department Care Team (Late st Contact Info) Description 03/28/2010 Abstract [facility] [address] [place] [address] Santo Gutierrez MD [address] [place] [address] Social History Tobacco Use Types Packs/Day Years Used Date Smoking Tobacco: Never Assessed Comments Unknown Sex and Gender Information Value Date Recorded Sex Assigned at Not on file Legal Sex Female 9:45 PM EVENT PLANNING MANAGER Gender Identity Not on file Sexual Orientation Not on file documented as of this encounter Plan of Treatment Not on file documented as of this encounter Visit Diagnoses Diagnosis Other complication of , antepartum (HHS/HCC) documented in this encounter
--- OUTSIDE RECORDS SUMMARY | 2024-03-02 05:36 | XMS_ITS | Encounter Summary ---
Author Organization [facility] Address [address] [place] [address]. [place], [place] [address] [place] [address] Care Team Providers Care Wood Sash And Frame Carpenter Name Role Phone Unavailable Primary Care Provider Unavailabl e Encounter Details Date Type Department Care Team (Latest Contact Info) Description 08/08/2010 Abstract [facility] Social History Tobacco Use Types Packs/Day Years Used Date Smoking Tobacco: Never Assessed Comments Unknown Sex and Gender Information Value Date Recorded Sex Assigned at Not on file Legal Sex Female 9:45 PM DIRECTOR FACILITIES MAINTENANCE Gender Identity Not on file Sexual Orientation Not on file documented as of this encounter Plan of Treatment Not on file documented as of this encounter Visit Diagnoses Not on filedocumented in this encounter
--- OUTSIDE RECORDS SUMMARY | 2024-03-02 05:36 | XMS_ITS | Encounter Summary ---
Author Organization [facility] Address [address] [place] [address]. [place], [place] [address] [place] [address] Care Team Providers Care Beam Carrier Hauler Pusher Name Role Phone Unavailable Primary Care Provider Unavailabl e Encounter Details Date Type Department Care Team (Latest Contact Info) Description 08/12/2010 Abstract [facility] Social History Tobacco Use Types Packs/Day Years Used Date Smoking Tobacco: Never Assessed Comments Unknown Sex and Gender Information Value Date Recorded Sex Assigned at Not on file Legal Sex Female 9:45 PM AROMATHERAPIST Gender Identity Not on file Sexual Orientation Not on file documented as of this encounter Plan of Treatment Not on file documented as of this encounter Visit Diagnoses Not on filedocumented in this encounter
--- OUTSIDE RECORDS SUMMARY | 2024-03-02 05:36 | XMS_ITS | Encounter Summary ---
Author Organization [facility] Address [facility] [place] [address] [place] [address] Care Team Providers Care Refuse Collector Supervisor Name Role Phone Unavailable Primary Care Provider Unavailabl e Encounter Details Date Type Department Care Team (Late st Contact Info) Description 07/05/[address] [facility] [address] [place] [address] Santo Gutierrez MD [address] [place] [address] Social History Tobacco Use Types Packs/Day Years Used Date Smoking Tobacco: Never Assessed Comments Unknown Sex and Gender Information Value Date Recorded Sex Assigned at Not on file Legal Sex Female 9:45 PM AGRICULTURAL SERVICE WORKER Gender Identity Not on file Sexual Orientation Not on file documented as of this encounter Plan of Treatment Not on file documented as of this encounter Visit Diagnoses Diagnosis Abdominal pain Abdominal pain, unspecified site documented in this encounter
--- OUTSIDE RECORDS SUMMARY | 2024-03-02 05:36 | XMS_ITS | Encounter Summary ---
Author Organization [facility] Address [facility]. [place], [place] [address] [place] [address] Care Team Providers Care Electrical And Electronic Assembler Name Role Phone Unavailable Primary Care Provider Unavailabl e Encounter Details Date Type Department Care Team (Latest Contact Info) Description 12/10/2014 Abstract [facility] Keily Shelby MD Social History Tobacco Use Types Packs/Day Years Used Date Smoking Tobacco: Never Assessed Comments Unknown Sex and Gender Information Value Date Recorded Sex Assigned at Not on file Legal Sex Female 9:45 PM JOCKEY AGENT Gender Identity Not on file Sexual [...] Mass Index 31.32 12/10/2014 3:26 PM CDT documented in this encounter Progress Notes * Keily Shelby MD - 12/10/2014 1:15 PM CDT Reason For Visit New Patient Visit History of Present Illness HPI Free Text: the patient 24 years old lady who is a history of migraine headache was seen because her headaches are not well controlled her headache started earlier on her teens and a throbbing pounding with she had a CAT scan of the head done in emergency which is normal there were no visual scotoma no loss ofvision no dizziness no vertigo no trouble in smelling taste speaking or swallowing Review of Systems Constitutional: negative. Head and Face: negative. Eyes: negative. ENT: negative. Cardiovascular: negative. Respiratory: negative. Gastrointestinal: negative. Genitourinary: negative. Musculoskeletal: negative. Psychiatric: negative. Hematologic and Lymphatic: negative. Neurological As Noted in HPI. Endocrine Negative. Active Problems 1. Headache, migraine, intractable (346.91) (G43.919) Past Medical History 1. History of Known health problems: none Current Meds 1. Topiramate 50 MG Oral Tablet; TAKE 2 TABLETS AT BEDTIME; Therapy: 15Dec2014 to (Evaluate:[id number]); Last Rx:15Dec2014 Ordered Vitals Recorded: 10Dec2014 03:26PM Systolic 126 Diastolic 87 Height 5 ft 8 in Weight 206 lb BMI Calculated 31.32 BSA Calculated 2.07 Physical Exam Neurologic: Mental status:. The patient's orientation, memory, attention, language and furnd of knowledge were normal. Cranial Nerves: visual acuity and visual lindsey were intact, the oculomotor, trochlear and abducensnervea were intact, no trigeminal neuropathy was noted, no facial nerve palsy was noted, hearing was intact, there was normal movement of the soft palate and normal gag, shoulder shrug was intact bilaterally and there was no tongue deviation with protrusion. Sensory exam:. Light touch was intact. Pain and temperature sensation was intact. Vibration sense was intact. Proprioception was normal. Coordination was normal, including finger to nose, heal to shiin, and rapid alternating movements. Deep tendon reflexes: Biceps: right 2+, left 2+. Triceps: right 2+, left 2+. Brachioradialis: right 2+, left 2+. Patella: right 2+, left 2+. Ankle Jerk: right 2+, left 2+. Babinski reflex absent on the right, absent on the left. Musculoskeletal Gait and station: Normal. Digits and nails: Normal. Muscle strength: Normal. Muscle tone: Normal. Involuntary movements: Negative. Neurologic Cortical function: Normal. Motor exam of the right side demonstrates 5/5 motor strength in all motor groups. Motor exam of the left side demonstrates 5/5 motor strength in all motor groups. Counseling The patient was counseled regarding diagnostic results and instructions for management. Assessment 1. Headache, migraine, intractable (346.91) (G43.919) Plan Headache, migraine, intractable 1. Topiramate 50 MG Oral Tablet; TAKE 2 TABLETS AT BEDTIME Rx By: Salena Shelby; Dispense: 30 Days ; #:60 Tablet; Refill: 1; For: Headache, migraine, intractable; LAZARUS = N; Record; Last Updated By: Marita Machuca; 12/15/2014 10:54:43 PM she has uncontrollable migraine headaches so we started her on Topamax 25 h.s. with gradual increase to 100 over the next 2-3 weeks. She will continue taking the just pmee-sen-eatdyyb for control of her headache and I will see her back in 2 weeks. Signatures Electronically signed by : Salena Shelby M.D.; Dec 16 2014 11:04AM JOCKEY AGENT (Author) documented in this encounter Plan of Treatment Not on file documented as of this encounter Visit Diagnoses Not on filedocumented in this encounter
--- OUTSIDE RECORDS SUMMARY | 2024-03-02 05:36 | XMS_ITS | Encounter Summary ---
Author Organization [facility] Address [address] [place] [address] Care Team Providers Care Utility Division Project Manager Name Role Phone Maxim Masterson MD Primary Care Provider [phone] Encounter Details Date Type Department Care Team (Late st Contact Info) Description 09/04/2019 Ophth Exam [facility] [address] [place] [address] Kelvin Dyer MD [address] [place] [address] Social History Tobacco Use Types Packs/Day Years Used Date Smoking Tobacco: Every Day Cigarettes Smokeless Tobacco: Never Alcohol Use Standard Drinks/Week Comments No 0 (1 standard drink = 0.6 oz pur e alcohol) Sex and Gender Information Value Date Recorded Sex Assigned at Not on file Gender Identity Not on file Sexual Orientation Not on file documented as of this encounter Functional Status [...] on filedocumented in this encounter Care Teams Utility Division Project Manager Relationship Specialty Start Date End Date Maxim Masterson MD [address] [place] [address] PCP - General 09/27/16 documented as of this encounter
--- OUTSIDE RECORDS SUMMARY | 2024-03-02 05:36 | XMS_ITS | Encounter Summary ---
Author Organization [facility] Address [facility]6 [facility] [place] [address] [place] [address] Care Team Providers Care Director Of Physical Education Name Role Phone Unavailable Primary Care Provider Unavailabl e Encounter Details Date Type Department Care Team (Late st Contact Info) Description 02/10/[address] [facility] [address] [place] [address] Santo Gutierrez MD [address] [place] [address] Social History Tobacco Use Types Packs/Day Years Used Date Smoking Tobacco: Never Assessed Comments Unknown Sex and Gender Information Value Date Recorded Sex Assigned at Not on file Legal Sex Female 9:45 PM PROGRAM SUPERVISOR Gender Identity Not on file Sexual Orientation Not on file documented as of this encounter Plan of Treatment Not on file documented as of this encounter Visit Diagnoses Diagnosis Other complication of , antepartum (HHS/HCC) documented in this encounter
--- OUTSIDE RECORDS SUMMARY | 2024-03-02 05:36 | XMS_ITS | Encounter Summary ---
Author Organization [facility] Address [facility]6 [facility] [place] [address] [place] [address] Care Team Providers Care Cloth Tearer Name Role Phone Unavailable Primary Care Provider Unavailabl e Encounter Details Date Type Department Care Team (Late st Contact Info) Description 10/30/2008 Emergency [facility] Emergency [address] [place] [address] Ninoska Nevarez MD [address] [place] [address] [id number] Social History Tobacco Use Types Packs/Day Years Used Date Smoking Tobacco: Never Assessed Comments Unknown Sex and Gender Information Value Date Recorded Sex Assigned at Not on file Legal Sex Female 9:45 PM KILN REMOVER Gender Identity Not on file Sexual Orientation Not on file documented as of this encounter Plan of Treatment Not on file documented as of this encounter Visit Diagnoses Diagnosis Abdominal pain Abdominal pain, unspecified site documented in this encounter
--- OUTSIDE RECORDS SUMMARY | 2024-03-02 05:36 | XMS_ITS | Encounter Summary ---
Author Organization [facility] Address [address] [place] [address] Care Team Providers Care Double Needle Operator Name Role Phone Maxim Masterson MD Primary Care Provider [phone] Encounter Details Date Type Department Care Team (Latest Contact Info) Description 04/30/2019 Travel Social History Tobacco Use Types Packs/Day [...] on filedocumented in this encounter Care Teams Double Needle Operator Relationship Specialty Start Date End Date Maxim Masterson MD [address] [place] [id number] PCP - General 09/27/16 documented as of this encounter
--- OUTSIDE RECORDS SUMMARY | 2024-03-02 05:36 | XMS_ITS | Encounter Summary ---
Author Organization [facility] Address [address] [facility] [place] [address] Care Team Providers Care Auto Brake Mechanic Name Role Phone Maxim Masterson MD Primary Care Provider [phone] Encounter Details Date Type Department Care Team (Latest Contact Info) Description 05/12/2019 Travel Social History Tobacco Use Types Packs/Day [...] on filedocumented in this encounter Care Teams Auto Brake Mechanic Relationship Specialty Start Date End Date Maxim Masterson MD [address] [place] [id number] PCP - General 09/27/16 documented as of this encounter
--- OUTSIDE RECORDS SUMMARY | 2024-03-02 05:36 | XMS_ITS | Encounter Summary ---
Author Organization [facility] Address [facility]6 [facility] [place] [address] [place] [address] Care Team Providers Care Process Chemist Name Role Phone Unavailable Primary Care Provider Unavailabl e Encounter Details Date Type Department Care Team (Late st Contact Info) Description 06/21/[address] [facility] [address] [place] [address] Santo Gutierrez MD [address] [place] [address] Social History Tobacco Use Types Packs/Day Years Used Date Smoking Tobacco: Never Assessed Comments Unknown Sex and Gender Information Value Date Recorded Sex Assigned at Not on file Legal Sex Female 9:45 PM PHLEBOTOMY SERVICES REPRESENTATIVE Gender Identity Not on file Sexual Orientation Not on file documented as of this encounter Plan of Treatment Not on file documented as of this encounter Visit Diagnoses Diagnosis Acquired keratoderma documented in this encounter
--- OUTSIDE RECORDS SUMMARY | 2024-03-02 05:36 | XMS_ITS | Encounter Summary ---
Author Organization [facility] Address [facility]6 [facility] [place] [address] [place] [address] Care Team Providers Care Safety Compliance Specialist Name Role Phone Unavailable Primary Care Provider Unavailabl e Encounter Details Date Type Department Care Team (Late st Contact Info) Description 07/03/2010 Abstract [facility] [address] [facility] [place] [address] Vipul Chong MD [address] [place], [place] [phone] Social History Tobacco Use Types Packs/Day Years Used Date Smoking Tobacco: Never Assessed Comments Unknown Sex and Gender Information Value Date Recorded Sex Assigned at Not on file Legal Sex Female 9:45 PM BOATSWAINS MATE Gender Identity Not on file Sexual Orientation Not on file documented as of this encounter Plan of Treatment Not on file documented as of this encounter Visit Diagnoses Diagnosis Acute bronchitis documented in this encounter
--- OUTSIDE RECORDS SUMMARY | 2024-03-02 05:36 | XMS_ITS | Encounter Summary ---
Author Organization [facility] Address [facility] [facility] [place] [address] [place] [address] Care Team Providers Care Railroad Car Painter Name Role Phone Unavailable Primary Care Provider Unavailabl e Encounter Details Date Type Department Care Team (Late st Contact Info) Description 12/17/[address] [facility] [address] [place] [address] Santo Gutierrez MD [address] [place] [address] Social History Tobacco Use Types Packs/Day Years Used Date Smoking Tobacco: Never Assessed Comments Unknown Sex and Gender Information Value Date Recorded Sex Assigned at Not on file Legal Sex Female 9:45 PM KEG INSPECTOR Gender Identity Not on file Sexual Orientation Not on file documented as of this encounter Plan of Treatment Not on file documented as of this encounter Visit Diagnoses Not on filedocumented in this encounter
--- OUTSIDE RECORDS SUMMARY | 2024-03-02 05:36 | XMS_ITS | Encounter Summary ---
Author Organization [facility] Address [facility]6 [facility] [place] [address] [place] [address] Care Team Providers Care Project Drilling Engineer Name Role Phone Unavailable Primary Care Provider Unavailabl e Encounter Details Date Type Department Care Team (Late st Contact Info) Description 03/31/[address] [facility] [address] [place] [address] Zaira Rivera MD [address] [facility] [place] [address] Social History Tobacco Use Types Packs/Day Years Used Date Smoking Tobacco: Never Assessed Comments Unknown Sex and Gender Information Value Date Recorded Sex Assigned at Not on file Legal Sex Female 9:45 PM ENDLESS STEAMER TENDER Gender Identity Not on file Sexual Orientation Not on file documented as of this encounter Plan of Treatment Not on file documented as of this encounter Visit Diagnoses Diagnosis Examination Unspecified examination documented in this encounter
--- OUTSIDE RECORDS SUMMARY | 2024-03-02 05:36 | XMS_ITS | Encounter Summary ---
Author Organization [facility] Address [facility]6 [facility] [place] [address] [place] [address] Care Team Providers Care Stripper Soft Plastic Name Role Phone Unavailable Primary Care Provider Unavailabl e Encounter Details Date Type Department Care Team (Late st Contact Info) Description 03/10/[address] 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
--- OUTSIDE RECORDS SUMMARY | 2024-03-02 05:36 | XMS_ITS | Encounter Summary ---
Author Organization [facility] Address [address] [facility] [place] [address] Care Team Providers Care Social Worker Palliative Care Name Role Phone Maxim Masterson MD Primary Care Provider [phone] Encounter Details Date Type Department Care Team (Latest Contact Info) Description 05/12/2016 Hospital Outpatient Visit [facility] [address] [place] [id number] Arnoldo Robertson MD [address] [place] [address] Discharge Disposition: Home or Self Care Social [...] on filedocumented in this encounter Care Teams Social Worker Palliative Care Relationship Specialty Start Date End Date Maxim Masterson MD [address] [place] [address] PCP - General 09/27/16 documented as of this encounter
--- OUTSIDE RECORDS SUMMARY | 2024-03-02 05:36 | XMS_ITS | Encounter Summary ---
Author Organization [facility] Address [facility]6 [facility] [place] [address] [place] [address] Care Team Providers Care English Language Learner Teacher Name Role Phone Unavailable Primary Care Provider Unavailabl e Encounter Details Date Type Department Care Team (Late st Contact Info) Description 07/13/[address] 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
--- OUTSIDE RECORDS SUMMARY | 2024-03-02 05:36 | XMS_ITS | Encounter Summary ---
Author Organization [facility] Address [address] [place] [address]. [place] [address] [place] [address] Care Team Providers Care Educational Programming Director Name Role Phone Ravi Deng MD Primary Care Provider [phone] Reason for Referral * Imaging (Emergency) - Closed Specialty Diagnoses / Procedures Referred By Reji nolan Referred To Contact RADIOLOGY Diagnoses Breast pain, left Procedures US BREAST LT BIRAD LTD US BREAST RT BIRAD LTD Karen Borden APNP [address] [place] [address] Phone: tel: fax: Referral ID Status Reason Start Date Expiration Date Visits Re quested Visits Authorized [id number] Closed 12/22/2020 01/21/2022 1 1 Encounter Details Date Type Department Care Team (Late st Contact Info) Description 12/23/2020 9:50 AM CDT - 12/23/2020 11:59 PM CDT Hospital Encounter [facility] [address] [place] [address] Karen Borden APNP [address] [place] [address] Discharge Disposition: Home or Self Care (Routine Discharge) Social History Tobacco Use Types Packs/Day Years Used Date Smoking Tobacco: Never Assessed Comments Unknown Sex and Gender Information Value Date Recorded Sex Assigned at Not on file 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 Moderately dense breast. No mammographic evidence of malignancy. 2. No sonographically suspicious abnormality identified within the regions of interest. 3. Follow-up as described. Recommendation: 1: Routine screening mammogram ??Bilateral ?? at age 38 Overall assessment: ACR BI-RADS Category 2 - Benign. Return for Routine Follow-Up: No Referred By: KAREN BORDEN Interpreted By: Nitin Baumann MD, 12/23/2020 10:46 AM Narrative 12/23/2020 10:55 AM CDT Examination: Digital left diagnostic mammogram with CAD. [id number] Clinical history: New onset of nipple inversion. Mass in the lower outer quadrant per provider order. The patient does not readily self identify a site of concern. No history of breast cancer for the patient or first-degree relatives. Comparison: None. Technique: CC, MLO, true lateral and spot compression CC and MLO left digital mammograms. The exam was interpreted with the use of a computer-aided detection (CAD) system. Additional 3-D Tomosynthesis images were acquired. Tissue density: ??The breast tissue is heterogeneously dense. Findings: The breast demonstrates mixed fat and moderately dense fibroglandular tissue. No suspicious mass, microcalcification or area of architectural distortion can be identified. A marker was placed at the patient indicated site of concern, lying near the 12:00 position approximately 7 cm from the nipple as measured along the skin surface on the true lateral view. No discrete underlying mammographic abnormality in this region is identified, including under spot compression. Mixed fatty and moderately dense tissue background persists. Examination: Left breast ultrasound. Technique:Grayscale and color Doppler images. Findings: Evaluation was performed at the 12:00 position to encompass the patient indicated site of concern. Survey of the periareolar/subareolar region and lower outer quadrant was also performed to evaluate the clinically indicated region of interest and to further assess the nipple. There are minimal fibrocystic changes against an otherwise bland appearing tissue background, concordant with patient age and mammographic density. No sonographically suspicious abnormality is identified. Physical exam surveillance is advised with further management at this point guided on that basis. From a mammographic standpoint, follow-up at age 38 for initiation of screening would seem adequate. These findings were discussed with the patient. us Karen BERUMEN MAMMO Final Resu lt * US BREAST LT [employer] L[employer] (12/23/2020 10:27 AM CDT) Anatomical Region Laterality Modality Breast Left Ultrasound, Radi ographic Imaging 12/23/2020 10:4 6 AM CDT Impressions 12/23/2020 10:55 AM CDT IMPRESSION: 1. Moderately dense breast. No mammographic evidence of malignancy. 2. No sonographically suspicious abnormality identified within the regions of interest. 3. Follow-up as described. Recommendation: 1: Routine screening mammogram ??Bilateral ?? at age 38 Overall assessment: ACR BI-RADS Category 2 - Benign. Return for Routine Follow-Up: No Referred By: KAREN BORDEN Interpreted By: Nitin Baumann MD, 12/23/2020 10:46 AM Narrative 12/23/2020 10:55 AM CDT Examination: Digital left diagnostic mammogram with CAD. [id number] Clinical history: New onset of nipple inversion. Mass in the lower outer quadrant per provider order. The patient does not readily self identify a site of concern. No history of breast cancer for the patient or first-degree relatives. Comparison: None. Technique: CC, MLO, true lateral and spot compression CC and MLO left digital mammograms. The exam was interpreted with the use of a computer-aided detection (CAD) system. Additional 3-D Tomosynthesis images were acquired. Tissue density: ??The breast tissue is heterogeneously dense. Findings: The breast demonstrates mixed fat and moderately dense fibroglandular tissue. No suspicious mass, microcalcification or area of architectural distortion can be identified. A marker was placed at the patient indicated site of concern, lying near the 12:00 position approximately 7 cm from the nipple as measured along the skin surface on the true lateral view. No discrete underlying mammographic abnormality in this region is identified, including under spot compression. Mixed fatty and moderately dense tissue background persists. Examination: Left breast ultrasound. Technique:Grayscale and color Doppler images. Findings: Evaluation was performed at the 12:00 position to encompass the patient indicated site of concern. Survey of the periareolar/subareolar region and lower outer quadrant was also performed to evaluate the clinically indicated region of interest and to further assess the nipple. There are minimal fibrocystic changes against an otherwise bland appearing tissue background, concordant with patient age and mammographic density. No sonographically suspicious abnormality is identified. Physical exam surveillance is advised with further management at this point guided on that basis. From a mammographic standpoint, follow-up at age 38 for initiation of screening would seem adequate. These findings were discussed with the patient. us Karen BERUMEN ULTRASOUND Final Resu lt documented in this encounter Visit Diagnoses Diagnosis Breast pain, left Mastodynia documented in this encounter Care Teams Educational Programming Director Relationship Specialty Start Date End Date Ravi Deng MD [address] [facility] [place] [address] PCP - General FAMILY PRACTICE 12/22/20 documented as of this encounter
--- OUTSIDE RECORDS SUMMARY | 2024-03-02 05:36 | XMS_ITS | Encounter Summary ---
Author Organization [facility] Address [facility]6 [place] [address] [place] [address] Care Team Providers Care Parts Fabricator Name Role Phone Unavailable Primary Care Provider Unavailabl e Encounter Details Date Type Department Care Team (Late st Contact Info) Description 02/07/[address] 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
--- OUTSIDE RECORDS SUMMARY | 2024-03-02 05:36 | XMS_ITS | Encounter Summary ---
Author Organization [facility] Address [facility]6 [facility] [place] [address] [place] [address] Care Team Providers Care Server Manager Name Role Phone Unavailable Primary Care Provider Unavailabl e Encounter Details Date Type Department Care Team (Late st Contact Info) Description 05/28/[address] 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
== END 2024-02-24 11:56 | disposition home or self-care (01) ==
PROVIDERS: Emergency Provider Family Medicine; PCP Nurse Practitioner
DX: U07.1 COVID-19 (principal); J10.1 Influenza due to other identified influenza virus with other respiratory manifestations; F17.210 Nicotine dependence, cigarettes, uncomplicated; F12.90 Cannabis use, unspecified, uncomplicated
CPT/HCPCS: 36415; 71045; 80053; 85025; 87637; 96361; 96372; 96374; 99284; J1885; J2405; J7030

== ENCOUNTER 2025-01-20 17:57 | Emergency (ER) | payer OTHER, SELFPAY ==
--- NOTE | ~2025-01-20 | XR_ITS ---
XR chest 2V HOSTORY: sob, chest pain cough started Sunday COMPARISON:[ None] FINDINGS: Frontal and lateral views of the chest were obtained. The lungs are clear. The heart size is normal in size. Pulmonary vasculature is unremarkable. Osseous structures are intact. IMPRESSION: No acute lung findings.] [ ] Reviewed, dictated and finalized at location [facility]
[2025-01-20 17:57] VITALS: PULSE 82; RESP 18; TEMP 36.2; O2SAT 100
--- OUTSIDE RECORDS SUMMARY | 2025-01-20 18:03 | XMS_ITS | Clinical Summary ---
Author Organization [facility] Address [facility] [place] [address] Care Team Providers Care Drive Thru Order Taker Name Role Phone Evelin Morales MD Primary Care Provider [phone] Encounters Date Type Department Care Team Description 12/24/2024 3:00 PM HOUSING DEVELOPMENT SPECIALIST - 12/24/2024 11:59 PM HOUSING DEVELOPMENT SPECIALIST Hospital Encounter [facility] [id number] [place] [address] Lorie Metzger PA Discharge Disposition: Home or Self Care (Routine Discharge) 12/24/2024 Orders Only [facility] [id number] [place] [address] Lorie Metzger PA 12/24/2024 Travel from Last 3 Months Social History Tobacco Use Types Packs/Day Years Used Date Smoking Tobacco: Never Assessed Comments Unknown Sex and Gender Information Value Date Recorded Sex Assigned at Female 12/24/2024 2:58 PM HOUSING DEVELOPMENT SPECIALIST Legal Sex 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 Gender Identity Not on file Sexual Orientation Not on file Last Filed Vital Signs Vital Sign Reading Time Taken Comments Blood Pressure 126/87 12/10/2014 3:26 PM CDT Pulse - - Temperature - - Respiratory Rate - - Oxygen Saturation - - Inhaled Oxygen Concentration - - Weight 93.4 kg (206 lb) 12/10/2014 3:26 PM CDT Height 172.7 cm (5' 8) 12/10/2014 3:26 PM CDT Body Mass Index 31.32 12/10/2014 3:26 PM CDT Plan of Treatment Health Maintenance Due Date Last Done Comments Cervical Cancer Screening Pap Smear (Age 30 to 64) Every 3 Years 1988 Annual Physical 1991 DTaP, Tdap and Td Vaccines (6 - Tdap) 1999 04/28/1992, 04/28/1992, 10/02/1990, Additional history exists HPV Vaccines (1 - 3-dose SCDM series) 2015 Cervical Cancer Screening Pap with HPV Testing (Age 30 to 64) Every 5 Years 2018 Cervical Cancer Screening with HPV 2018 COVID-19 Vaccine (2024- season) 2024 Influenza Adult (#1) 2024 Hepatitis B Vaccines Completed 09/24/1998, 04/23/1998, 03/26/1998 Hepatitis C Completed 07/22/2020 Hepatitis A Vaccines Aged Out No long er eligible based on patient's age to complete this topic Meningococcal B Vaccine Aged Out No l onger eligible based on patient's age to complete this topic Meningococcal Vaccine Aged Out No rodrigo lotus eligible based on patient's age to complete this topic Pneumococcal Vaccine: Pediatrics (0 to 5 Years) and At-Risk Patients (6 to 49 Years) Aged Out No longer eligible based on patient's age to complete this topic RSV Immunizations Under 20 Months Aged Out No longer eligible based on patient's age to complete this topic Procedures Procedure Name Priority Date/Time Associated Diagnosis Comments INFLUENZA A & B Routine 12/24/2024 3:09 PM HOUSING DEVELOPMENT SPECIALIST Nasal congestion CORONAVIRUS (COVID-19) ANTIGEN Routine 12/24/2024 3:09 PM HOUSING DEVELOPMENT SPECIALIST Nasal congestion from Last 3 Months Results * CORONAVIRUS (COVID-19) ANTIGEN (12/24/2024 3:09 PM HOUSING DEVELOPMENT SPECIALIST) CORONAVIRUS ANTIGEN IA NEGATIVE NEGATIVE 12/24/2024 3:35 PM HOUSING DEVELOPMENT SPECIALIST [facility] Comment: NEGATIVE RESULTS DO NOT RULE OUT SARS-COV-2 INFECTION AND SHOULD NOT BE USED THE SOLE BASIS FOR TREATMENT OR PATIENT MANAGEMENT DECISIONS, INCLUDING INFECTION CONTROL DECISIONS. NEGATIVE RESULTS SHOULD BE CONSIDERED IN THE CONTEXT OF A PATIENT'S RECENT EXPOSURES, HISTORY AND THE PRESENCE OF CLINICAL SIGNS AND SYMPTOMS CONSISTENT WITH COVID 19. THIS TEST HAS BEEN AUTHORIZED BY THE FDA UNDER AN EMERGENCY USE AUTHORIZATION (EUA) FOR USE BY AUTHORIZED LABORATORIES. SPECIMEN TYPE NASAL 12/24/2024 3:06 PM HOUSING DEVELOPMENT SPECIALIST [facility] NASAL NASAL STRUCTURE / Unknown 12/24/2024 3:09 PM HOUSING DEVELOPMENT SPECIALIST Lorie BLANCA MICROBIOLOGY - GENERAL ORD ERABLES Final Result Performing Organization Address [facility]/ZIP Co de Phone Number [facility] [address] [place] [address], * INFLUENZA A & B (12/24/2024 3:09 PM HOUSING DEVELOPMENT SPECIALIST) SPECIMEN TYPE (INFLUENZA) NASAL 12/24/2024 3:06 PM HOUSING DEVELOPMENT SPECIALIST [facility] INFLUENZA A NEGATIVE NEGATIVE 12/24/2024 3:35 PM HOUSING DEVELOPMENT SPECIALIST [facility] INFLUENZA B NEGATIVE NEGATIVE 12/24/2024 3:35 PM HOUSING DEVELOPMENT SPECIALIST [facility] Comment: A NEGATIVE RESULT DOES NOT EXCLUDE INFLUENZA VIRUS INFECTION. IF INFLUENZA IS CIRCULATING IN YOUR COMMUNITY, A DIAGNOSIS OF INFLUENZA SHOULD BE CONSIDERED BASED ON A PATIENT'S CLINICAL PRESENTATION AND EMPIRIC ANTIVIRAL TREATMENT SHOULD BE CONSIDERED IF INDICATED. NASAL STRUCTURE / Unknown 12/24/2024 3:09 PM HOUSING DEVELOPMENT SPECIALIST Lorie BLANCA MICROBIOLOGY - GENERAL ORD ERABLES Final Result Performing Organization Address [facility] Co de Phone Number [facility] [address] [place] [address], [place] [phone] from Last [address] [place] [address] [place] [address] [address] Thru Order Taker Relationship Specialty Start Date End Date Evelin Morales MD [address] [place], [place] [phone] PCP - General FAMILY PRACTICE 12/24/24
--- OUTSIDE RECORDS SUMMARY | 2025-01-20 18:03 | XMS_ITS | Clinical Summary ---
Author Organization [facility] Address [address] [place] [address] Care Team Providers Care Area Safety Manager Name Role Phone Maxim Masterson MD Primary Care Provider Source Comments [facility] [employer],non-owned Affiliates and Associated Physician Practices is amultiple site organization consisting of ambulatory clinics and hospital sitesin [place], [place], [place] and [place]. This disclosure is being madepursuant to the Care Everywhere program and may not contain all information available regarding this patient. Last updated [address].[facility] [employer] Allergies Active Allergy Reactions Criticality Noted Date Comments Iodine Swelling 07/22/2020 Povidone Iodine Swelling Low 05/11/2016 Shellfish Allergy Anaphylaxis High 09/27/2016 Medications * Be aware that medications may not be up to date on this document. Alwaysverify current medications with the patient. 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 Gender Identity Not on file Sexual Orientation Not on file Last Filed Vital Signs Vital Sign Reading Time Taken Comments Blood Pressure 100/82 08/03/2020 2:33 PM CDT Pulse 64 08/03/2020 2:33 PM CDT Temperature 37 C (98.6 F) 08/03/2020 2:33 PM CDT Respiratory Rate 16 08/03/2020 2:33 PM CDT Oxygen Saturation 96% 08/03/2020 2:33 PM CDT Inhaled Oxygen Concentration - - Weight 75.3 kg (166 lb) 08/03/2020 2:33 PM CDT Height 175.3 cm (5' 9) 08/03/2020 2:33 PM CDT Body Mass Index 24.51 08/03/2020 2:33 PM CDT Plan of Treatment Health Maintenance Due Date Last Done Comments HIV SCREENING 2003 DTAP/TDAP/TD VACCINES (1 - Tdap) 2007 HEPATITIS B VACCINE (1 of 3 - 19+ 3-dose series) 2007 PAP SMEAR 2009 HPV VACCINE (1 - 3-dose SCDM series) 2015 Cervical Cancer Screening 2018 PAP with HPV 2018 DEPRESSION SCREENING 02/20/2024 COVID-19 VACCINE (1 - 2024-2 6 season) 2024 INFLUENZA VACCINE (#1) 2024 ZOSTER VACCINE (1 of 2) 2038 HEPATITIS C SCREENING Completed 07/22/2020 HIB VACCINE Aged Out No longer eligi ble based on patient's age to complete this topic MENINGOCOCCAL (Group B) VACC INE SHARED DECISION-MAKING Aged Out No longer eligibl e based on patient's age to complete this topic MENINGOCOCCAL GROUPS A/C/Y/W VACCINE Aged Out No longer eligible b ased on patient's age to complete this topic PNEUMOCOCCAL VACCINE Aged Out No long er eligible based on patient's age to complete this topic Medical Devices Implanted Type Area Farm Butcher Device Identifier Shelf Expiration Date Model / [...] kalen Non-reac tive 07/22/2020 12:35 PM CDT [facility] Comment:Hepatitis C Antibody screen indicates [...] CDT Ankur Osorio MD LAB - CHEMISTRY ORDERABLES Final Result [facility] [address] [place] [id number], [facility] [phone] from Last 3 Months or Most Recently Relevant to Health Maintenance Insurance [facility] Care Teams Area Safety Manager Relationship Specialty Start Date End Date Maxim Masterson MD [address] [place] [phone] PCP - General 09/27/16
[2025-01-20 18:16] VITALS: BP 142/105
--- NOTE | 2025-01-20 18:23 | ED_ITS ---
HPI - General Adult General Chief complaint: Upper Respiratory Infection Stated complaint: cough x 5 days Time Seen by Provider: 01/20/25 18:05 Source: patient Mode of arrival: ambulatory Limitations: no limitations History of Present Illness HPI narrative: 34 year with a history anxiety disorder here with the complaints of cough which is nonproductive for past days was seated urgent care the days ago was diagnosed with the bronchitis started on steroids yesterday. She presently denies any fever or chills. Onset (ago): day(s) (3) Location: chest Radiation: non-radiation Severity: mild Quality: aching Pain Consistency: constant Relieving factors: none Exacerbating factors: none Associated symptoms: denies other symptoms Treatments prior to arrival: none Related Data Home Medications ?Medication ?Instructions ?Recorded ?Confirmed ?Last Taken ?Type citalopram 10 mg tablet mg 01/20/25 Unknown History doxycycline monohydrate 100 mg mg 01/20/25 Unknown Hi story capsule methylprednisolone 4 mg tablets in mg 01/20/25 Unknow n History a dose pack Allergies Allergy/AdvReac Type Severity Reaction Status Date / Time shellfish derived Allergy Severe Unknown Verified 01/20/25 18:06 iodine Allergy Intermediate Unknown Verified 01/20/25 18:06 Review of Systems Review of Systems: All systems reviewed & are unremarkable except as noted in HPI and below Constitutional: Constitutional: Reports no additional constitutional complaints Eyes: Eyes: Reports no additional eye complaints ENT: Reports system reviewed and no additional complaints, except as documented Cardiovascular: Cardiovascular: Reports no additional cardiovascular complaints Respiratory: Respiratory: Reports no additional respiratory complaints Gastrointestinal: Gastrointestinal: Reports no additional gastrointestinal complaints Musculoskeletal: Musculoskeletal: Reports no additional musculoskeletal complaints Integumentary/Breasts: Skin/Breast: Reports system reviewed and no additional complaints, except as docu PMFSH Past Medical History Medical History Nicotine dependence, unspecified, uncomplicated Nicotine addiction Pseudotumor cerebri IIH (idiopathic intracranial hypertension) AMARA (generalized anxiety disorder) PTSD (post-traumatic stress disorder) IBS (irritable bowel syndrome) Surgical History Surgical History S/P laparoscopic surgery For endometriosis multiple times S/P PETROLEUM TERMINAL PLANT OPERATOR shunt [address] [facility] [address] 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 Gender identity (if verbalized by the patient): Female Spiritual care concerns: No Exam Narrative: GENERAL: Well-appearing, well-nourished, and in no acute distress. HEAD: Normocephalic, atraumatic. EYES: PERRLA and EOMI. ENT: Nares clear, no rhinorrhea or epistaxis. Mucous membranes moist. NECK: Supple. CHEST: Clear to auscultation. No respiratory distress. HEART: Regular rate and rhythm. No murmur heard. Normal peripheral pulses. EXTREMITIES: Normal range of motion. No edema. SKIN: Warm, dry, no rash. NEURO: No focal deficits. Alert and oriented x3. PSYCH: Normal mood and affect. Course Course Emergency Course: Notified the patient about a chest x-ray findings advised her to continue steroids as prescribed. Follow-up with the primary doctor Vital Signs Vital signs: Vital Signs Temperature 36.2 C L 01/20/25 17:57 Pulse Rate 82 01/20/25 17:57 Respiratory Rate 18 01/20/25 17:57 Pulse Oximetry 100 01/20/25 17:57 Oxygen Delivery Room Air 01/20/25 17:57 Temperature 36.2 C L 01/20/25 17:57 Pulse Rate 82 01/20/25 17:57 Respiratory Rate 18 01/20/25 17:57 Blood Pressure 142/105 H 01/20/25 18:16 Pulse Oximetry 100 01/20/25 17:57 Oxygen Delivery Room Air 01/20/25 17:57 MDM Differential Diagnosis Differential Diagnosis: pneumonia, bronchitis Imaging Data My impression: No acute findings Discharge Plan Discharge Clinical Impression: Bronchitis Patient Disposition: Home Condition: Stable Instructions: Acute Bronchitis (ED) Additional Instructions: Continue home medication, follow-up with your doctor as needed Patient Language: Occitan Prescriptions: New benzonatate 200 mg capsule 200 mg PO TID PRN (Reason: cough) Qty: 20 0RF No Action citalopram 10 mg tablet doxycycline monohydrate 100 mg capsule methylprednisolone 4 mg tablets,dose pack Follow-up/Referrals: Andrew,Evelin Guaman MD [Primary Care Provider, Unknown] Time of Disposition: 18:28
[2025-01-20 18:24] VITALS: BP 156/99; PULSE 69; RESP 18; O2SAT 98
== END 2025-01-20 18:51 | disposition home or self-care (01) ==
LOC: CHSED 18:33
PROVIDERS: Emergency Provider Family Medicine; PCP Family Medicine
DX: J40 Bronchitis, not specified as acute or chronic (principal); F17.210 Nicotine dependence, cigarettes, uncomplicated; Z79.899 Other long term (current) drug therapy
CPT/HCPCS: 71046; 99283